=== PATIENT | male | born 1950 ===

== ENCOUNTER 2017-02-16 07:13 | Day surgery (SDC) | payer MEDICARE, OTHER ==
[2017-02-16 07:46] VITALS: BMI 25.7
[2017-02-16] MEDS ORDERED: Propofol 10 mg/ml Inj (20 ML) ONE (08:33)
[2017-02-16] MEDS ORDERED: Lactated Ringer's 500 ML IV ONE (08:58)
[2017-02-16] MEDS ORDERED: Phenylephrine 10 mg/ml Inj ONE (09:00)
[2017-02-16 09:15] VITALS: BP 156/62; PULSE 53; RESP 15; TEMP 98.4; O2SAT 100
== END 2017-02-16 11:00 | disposition home or self-care (01) ==
LOC: C.ENDO 07:13
PROVIDERS: ATTEND Internal Medicine Gastroenterology
DX: K92.1 Melena (principal); K57.30 Diverticulosis of large intestine without perforation or abscess without bleeding; K62.1 Rectal polyp; K64.1 Second degree hemorrhoids
CPT/HCPCS: 45380; 82948; 88305; J2370; J2704; J7120

== ENCOUNTER 2017-03-20 07:00 | Day surgery (SDC) | payer MEDICARE, OTHER ==
[2017-03-20] MEDS ORDERED: Iodixanol 320 MG/ML 100 ML BOTTLE IV ONE (07:50)
[2017-03-20] MEDS ORDERED: Sodium Chloride 0.9% 500 ML IV SCH (09:13)
[2017-03-20] MEDS ORDERED: Lactated Ringer's 1,000 ML IV ONE (12:06)
[2017-03-20 13:35] VITALS: O2SAT 95
[2017-03-20 14:08] VITALS: BP 165/65; PULSE 61; RESP 17; TEMP 97.7
--- NOTE | 2017-05-08 09:17 | CARDCATH ---
PROCEDURE DATE: 03/20/2017 PROCEDURES PERFORMED: 1. Cardiac catheterization. 2. Coronary angiography. 3. Left ventriculography. COMPLICATIONS: None. DESCRIPTION OF PROCEDURE: After obtaining informed consent, the patient was brought to cardiac catheterization laboratory. The patient was prepped and draped in usual sterile manner. Versed and fentanyl were used for moderate sedation. A 2% lidocaine was used for local anesthesia. Using a modified Seldinger technique, the right radial artery was catheterized and a 6-Prydeinig Terumo Slender sheath was inserted into it. The sheath was flushed with heparinized saline. Verapamil 2.5 mg was buffered with blood and slowly administered into the sheath to reduce vasospasm. Over the guidewire, a 6-Prydeinig [place] catheter was advanced through the sheath across the arm and into the ascending aorta. The guidewire was removed and the catheter was flushed with heparinized saline. Heparin 5000 units was administered through peripheral IV. The catheter then was advanced across the aortic valve into the left ventricle. Left ventricular pressure tracing was recorded with left ventricular end-diastolic pressure measured. The catheter then was withdrawn across the aortic valve under continuous pressure monitoring. The catheter then was directed towards the ostium of the left coronary system. Selective angiography of this vessel was performed in multiple views. The catheter then was directed towards the ostium of the right coronary system. Selective angiography of this vessel was performed in multiple views. J-tip guidewire was reinserted into the catheter and the catheter was successfully withdrawn through the right radial sheath. Radial sheath was flushed with heparinized saline. Using a RigUp TR band, pressure was applied over the right radial artery with air inflated into the balloon. The catheter was successful withdrawn from the right radial artery with continuous pulse oximetry monitoring and excellent hemostasis over the right radial artery. FINDINGS: 1. The left main artery. Left main artery is a normal-sized vessel gives rise to both the left anterior descending and left circumflex arteries, and is free of disease, 0% stenosis. 2. Left anterior descending artery. The left anterior descending artery is a large vessel traveling across the anterior interventricular groove and giving rise to several diagonal and septal branches. The left anterior descending artery has a 90% stenosis in the mid portion of the vessel. 3. Left circumflex artery. Left circumflex artery is a large-sized vessel giving rise to a several obtuse marginal branches. Vessel has luminal irregularities, 20% diffuse stenosis. 4. Right coronary artery. The right coronary artery has a 90% stenosis in the proximal portion of the vessel. The vessel is a large-sized vessel giving rise to both the RPDA and RPLA arteries. LEFT VENTRICULOGRAPHY FINDINGS: The overall left ventricular function is normal, ejection fraction estimated at 55%. HEMODYNAMIC DATA: The aortic opening pressure was 119/78. The left ventricular end-diastolic pressure was 14. There was no significant gradient across the aortic valve. CONCLUSION: 1. Double-vessel coronary artery disease. 2. Normal LV systolic function. PLAN: PCI of the RCA in a tertiary facility with an elective PCI capabilities. Antonio Pace MD
== END 2017-03-20 14:13 | disposition home or self-care (01) ==
LOC: C.CATHLAB 07:00
PROVIDERS: ATTEND Internal Medicine Cardiovascular Disease
DX: I25.119 Atherosclerotic heart disease of native coronary artery with unspecified angina pectoris (principal)
CPT/HCPCS: 82948; 93458; C1769; J0360; J1644; J7040; Q9967

== ENCOUNTER 2017-06-17 13:34 | Observation (INO) | payer MEDICARE, OTHER ==
[2017-06-17 13:34] VITALS: BMI 21.1
--- NOTE | 2017-06-17 14:09 | C.PDOC ---
History Of Present Illness Haseeb Christian is a 67 year old male, with a past medical history of diabetes, hypercholesterolemia and CAD, who presents to the emergency department via BLS complaining of epigastric pain associated with nausea, diaphoresis, vomit, and near syncope onset for 1 hour. Patient reports feeling hot, pale, sweating, and had difficulty breathing before the near syncope episode. He states he no longer feel nauseous and denies any fever, or head injury. PMD: Gwendolyn Cobb Time Seen by Provider: 06/17/17 13:46 Chief Complaint (Nursing): Weakness/Neurological Deficit History Per: Patient History/Exam Limitations: no limitations Onset/Duration Of Symptoms: Hrs (x1) Current Symptoms Are (Timing): Better Past Medical History Reviewed: Historical Data, Nursing Documentation, Vital Signs Vital Signs: Last Vital Signs Temp 97.7 F 06/17/17 13:44 Pulse 65 06/17/17 15:57 Resp 15 06/17/17 15:57 BP 143/72 06/17/17 15:57 Pulse Ox 98 06/17/17 15:57 - Medical History PMH: Anemia (IRON DEFICIENCY), CAD, Colonic Polyps, Diabetes, Gall Bladder Disease, HTN, Hypercholesterolemia Denies: Fractures, Chronic Kidney Disease Surgical History: Carotid Endarterectomy (1 year ago), Cholecystectomy (about 15 years ago), Coronary Stent (cardiac cath (2017)), Hernia Repair Family History: States: Unknown Family Hx - Social History Hx Tobacco Use: No Hx Alcohol Use: No Hx Substance Use: No - Immunization History Hx Tetanus Toxoid Vaccination: No Hx Influenza Vaccination: Yes (2017) Hx Pneumococcal Vaccination: Yes Review Of Systems Except As Marked, All Systems Reviewed And Found Negative. Constitutional: Negative for: Fever Gastrointestinal: Positive for: Nausea, Abdominal Pain (epigastric pain) Physical Exam - Physical Exam Additional Physical Exam Comments: Constitutional: No acute distress. Head: Normocephalic. Atraumatic. Eyes: PERRL. ENT: Moist mucous membranes. Neck: Supple. Cardiovascular: Regular rate. Radial pulse 2+ bilaterally. Chest: No tenderness. Respiratory: Clear to auscultation bilaterally. GI: Epigastric tenderness, No rebound, No guarding Back: No CVA tenderness. Musculoskeletal: No tenderness or swelling of extremities. Skin: No rash. Neurologic: Alert, no focal deficit. ED Course And Treatment - Laboratory Results Result Diagrams: 06/17/17 14:20 06/17/17 14:20 ECG Rhythm: Sinus Rhythm (NORMAL), ST/T Changes (No ST elevation) Rate From EC O2 Sat by Pulse Oximetry: 100 (RA) Pulse Ox Interpretation: Normal Medical Decision Making Medical Decision Making: Initial Plan: --CK-MB --Comp Metabolic Panel --Creatine Phosphokinase --Lipase --Troponin I --CBC w/ differential --PTT --PT --Chest portable [RAD] --Aspirin 325 mg PO --Urine culture --Urinalysis --reevaluation 1450 Chest x-ray single frontal view History: Epigastric pain. Syncope. Comparison: 05/28/2014 Findings: Moderate venous congestion. Right infrahilar prominence. Patchy bibasilar airspace opacities. Cardiomegaly. Calcification at the aortic knob. Degenerative changes in the spine and shoulders. Impression: Moderate venous congestion. Right infrahilar prominence. Patchy bibasilar airspace opacities. Cardiomegaly. Calcification at the aortic knob. Degenerative changes in the spine and shoulders. Troponin negative. Aspirin administered. Dr. 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 Scribe Attestation Written by Salvador Roblero acting as a scribe for Kendall Espitia MD All medical record entries made by the Scribe were at my direction and personally dictated by me. I have reviewed the chart and agree that the record accurately reflects my personal performance of the history, physical exam, medical decision making, and the department course for this patient. I have also personally directed, reviewed, and agree with the discharge instructions and disposition. Disposition Discussed With : Seng Juarez Doctor Will See Patient In The: Hospital - Disposition Disposition: HOSPITALIZED Disposition Time: 15:14 Condition: FAIR Forms: [facility] (German) - POA Core Measure Indicators: Chest Pain - Clinical Impression Clinical Impression: Epigastric pain
[2017-06-17 14:24] LABS: BASO # 0.2 K/uL (0.0-0.2); BASO % 1.3 % (0.0-2.0); EOS # 0.5 K/uL (0.0-0.7); EOS % 4.2 % (0.0-4.0); HEMATOCRIT 33.6 % (35.0-51.0); LYMPH % 16.6 % (20.0-40.0); MEAN CELL VOLUME 81.3 fL (80.0-94.0); MEAN CORPUSCULAR HGB CONC 33.3 g/dL (33.0-37.0); MEAN PLATELET VOLUME 9.8 fL (7.2-11.7); MONO # 0.7 K/uL (0.0-0.8); MONO % 6.1 % (0.0-10.0); NRBC % 0.1 % (0.0-2.0); RED CELL DISTRIBUTION WIDTH 14.7 % (11.5-14.5)
[2017-06-17 14:32] LABS: CHLORIDE 107 mmol/L (98-107); POTASSIUM 4.7 mmol/L (3.6-5.2); SODIUM 138 mmol/L (132-148)
[2017-06-17 14:34] LABS: ALB/GLOB RATIO 1.1 (1.0-2.1); ALKALINE PHOSPHATASE 119 U/L (38-126); AST/SGOT 35 U/L (17-59); BILIRUBIN,TOTAL 0.6 mg/dL (0.2-1.3); CARBON DIOXIDE 21 mmol/L (22-30); GFR AFRICAN-AMERICAN 38; TOTAL PROTEIN 6.7 g/dL (6.3-8.3)
[2017-06-17 14:35] LABS: ALT/SGPT 25 U/L (21-72); BLOOD UREA NITROGEN 28 mg/dL (9-20); CALCIUM 8.6 mg/dl (8.6-10.4); GLUCOSE,RANDOM 79 mg/dL (75-110)
--- NOTE | 2017-06-17 14:52 | RAD ---
Chest x-ray single frontal view History: Epigastric pain. Syncope. Comparison: 05/28/2014 Findings: Moderate venous congestion. Right infrahilar prominence. Patchy bibasilar airspace opacities. Cardiomegaly. Calcification at the aortic knob. Degenerative changes in the spine and shoulders. Impression: Moderate venous congestion. Right infrahilar prominence. Patchy bibasilar airspace opacities. Cardiomegaly. Calcification at the aortic knob. Degenerative changes in the spine and shoulders.
[2017-06-17 17:12] LABS: RBC URINE 2 /hpf (0-3); URINE BACTERIA RARE (<OCC); URINE BILIRUBIN NEGATIVE (NEGATIVE); URINE COLOR Yellow (YELLOW); URINE GLUCOSE (UA) 1+ mg/dL (Normal); URINE HYALINE CAST 0-2 /lpf (0-2); URINE KETONE NEGATIVE (NEGATIVE); URINE LEUKOCYTE ESTERASE NEG Leu/uL (Negative); URINE PROTEIN 3+ mg/dL (NEGATIVE); URINE UROBILINOGEN NORMAL mg/dL (0.2-1.0); WBC URINE 1 /hpf (0-5)
[2017-06-17 17:13] LABS: URINE BLOOD TRACE (NEGATIVE)
[2017-06-17] MEDS ORDERED: Enoxaparin 30 mg Syringe SC SCH (22:45)
[2017-06-18] MEDS: Nitroglycerin 2% Ointment Foilpak UD TOP SCH ×4 (00:05→18:35)
[2017-06-18] MEDS: (Novolin R) Insulin Human Regular 100 units/ml vial SC SCH ×4 (08:01→21:51)
[2017-06-18] MEDS: Enoxaparin 30 mg Syringe SC SCH (09:22)
--- NOTE | 2017-06-18 14:47 | CP.PCM.HP ---
History of Present Illness - History of Present Illness History of Present Illness: COMPREHENSIVE HISTORY & PHYSICAL EXAM HPI PT WAS RESTING AND EXPERIENCED SEVERE DIAPHORESIS WITH EPIGASTRIC PAIN RADIATING TO RETROSTERNAL FOR FEW MIN . PT HAD SIMILAR EPISODE 2 MONTHS AGO AND FOUND 2 V CAD AND STENTED RCA PROXIMAL AND LAD MID . PAST HIST. T2DM WITH MILD NEPHROPATHY/CAD/STENT/HTN/HIATAL HERNIA /PUD PERSONAL HIST: Smoking. N Alcohol. N Allergy N Travel_- . FAMILY HIST : ROS : Constitutional: Negative for weight change, chills, night sweats, Eyes: Negative for redness, swelling, itching, discharge, vision changes, blurry vision, double vision, glaucoma, cataracts, Ears: Negative for hearing loss, ringing, , tinnitus, vertigo Nose: Negative for rhinorrhea, stuffiness, sniffing, itching, postnasal drip, discoloration, nasal congestion and epistaxis. Throat: Negative for throat clearing, sore throat, hoarseness, difficulty swallowing and difficulty speaking. Respiratory: Negative for cough, , sputum production, chest tightness, wheezing, pleuritic chest pain ,daytime somnolence, chronic cough, hemoptysis, snoring at night, Cardiovascular: POS for chest pain, palpitations, NO orthopnea, PND, Edema of legs, leg cramps, angina, claudication, , irregular heartbeat, Neurology: Negative for irritability, muscle weakness, numbness and tingling, seizures, tremors, migraines, slurred speech, syncope, memory loss, mood changes , recurrent headaches Gastrointestinal: Negative for difficulty swallowing, diarrhea, constipation, black stools, rectal bleeding, nausea, flatulence, poor appetite, changes in bowel habits, abdominal pain Genitourinary: Negative for frequent urination, hematuria, discharge, incontinence, urinary retention, frequent UTI, Psychiatric: Negative for depression, anxiety/panic, suicidal tendencies, Musculoskeletal: Negative for swollen joints, back pain, , neck pain, morning stiffness of joints, . Skin: Negative for rash, ulcers, itching, dry skin and pigmented lesions. P/E: Constitutional: Appears stated age and in no apparent distress. Head: Normocephalic. Ears: External ear canals patent without inflammation. Tympanic membranes intact with normal light reflex and landmark. Eyes: Pupils are central, bilaterally equal, symmetrical and reacts to light with normal movements and no icterus or pallor. Nose: External nares are patent. Mucosa is pink Mouth-Throat: Good general appearance and condition. No post-pharyngeal/oropharyngeal erythema and tonsillar hypertrophy. Good dental hygiene. Neck-Lymphatic: Neck is supple with normal ROM, no thyromegaly, lymph nodes or masses. JVD is normal with no carotid bruit. Lungs: Clear to percussion and auscultation with bilateral normal air entry. Cardiovascular: S1 and S2 are normal with MATT murmurs BASE OF HEART NO , gallops and rub. GI Exam: No hepatomegaly. Abdomen is soft and non-tender. No Organomegaly , masses or hernias are evident and bowel sounds are normal and active. Neurology: Higher function and all cranial nerves intact, with no gross motor or sensory deficit. Superficial and deep reflexes are normal with downwards planters. No cerebellar deficit with normal gait. Musculoskeletal: No tender spots with normal curvature of the spine with no swelling or restricted ROM of the small and large joints. Extremities: Homans sign absent. Intact pulses with no pitting edema, calf tenderness or skin color changes. Skin: No rash, eruptions or abnormal skin pigmentation LAB/RADIOLOGY: ASSESMENT : WITH H/O RECENT CAD STENT THE SYMPTOMS SUGGEST ACUTE CORONARY SYNDROME TE DM WITH NEPHROSCLEROSIS HTN PLAN: MONITOR TNI AND REVIIEW OLD CHART MAY NEED REPEAT CATH IF CR IS STABLE Present on Admission - Present on Admission Any Indicators Present on Admission: No Past Patient History - Past Medical History & Family History Past Medical History?: Yes - Past Social History Smoking Status: Former Smoker - CARDIAC Hx Hypercholesterolemia: Yes Hx Hypertension: Yes - PULMONARY Hx Respiratory Disorders: No - NEUROLOGICAL Hx Neurological Disorder: Yes HX Cerebrovascular Accident: Yes (ABOUT 2013-LEFT SIDED WEAKNESS REMAINS) - HEENT Hx HEENT Problems: Yes Hx Cataracts: Yes (LEFT EYE) - RENAL Hx Chronic Kidney Disease: No - ENDOCRINE/METABOLIC Hx Endocrine Disorders: Yes Hx Diabetes Mellitus Type 2: Yes - HEMATOLOGICAL/ONCOLOGICAL Hx Anemia: Yes (IRON DEFICIENCY) - INTEGUMENTARY Hx Dermatological Problems: No - MUSCULOSKELETAL/RHEUMATOLOGICAL Hx Falls: No - GASTROINTESTINAL Hx Gall Bladder Disease: Yes - GENITOURINARY/GYNECOLOGICAL Hx Genitourinary Disorders: No - PSYCHIATRIC Hx Substance Use: No - SURGICAL HISTORY Hx Carotid Endarterectomy: Yes (1 year ago) Hx Cholecystectomy: Yes (about 15 years ago) Hx Coronary Stent: Yes (cardiac cath (2017)) - ANESTHESIA Hx Anesthesia: Yes Hx Anesthesia Reactions: No Hx Malignant Hyperthermia: No Meds Allergies/Adverse Reactions: Allergies Allergy/AdvReac Type Severity Reaction Status Date / Time No Known Allergies Allergy Verified 04/12/17 09:52 Results - Vital Signs Recent Vital Signs: Last Vital Signs Temp 97.8 F 06/18/17 07:05 Pulse 60 06/18/17 12:10 Resp 18 06/18/17 07:05 BP 149/74 06/18/17 12:10 Pulse Ox 97 06/18/17 07:05 - Labs Result Diagrams: 06/17/17 14:20 06/17/17 14:20 Labs: Laboratory Results - last 24 hr 06/17/17 06/17/17 06/17/17 14:20 14:20 14:59 Differential Comment PT 11.0 INR 1.0 APTT 29 Carbon Dioxide 21 L Anion Gap 15 BUN 28 H Creatinine 2.1 H Est GFR ( Amer) 38 Est GFR (Non-Af Amer) 32 POC Glucose (mg/dL) Random Glucose 79 Calcium 8.6 Total Bilirubin 0.6 AST 35 ALT 25 Alkaline Phosphatase 119 Total Creatine Kinase 577 H CK-MB (Mass) 3.44 H Troponin I < 0.0120 Troponin I, Quant Total Protein 6.7 Globulin 3.2 Albumin/Globulin Ratio 1.1 Lipase 201 Urine Color Urine Clarity Urine pH Ur Specific [place] Urine Protein Urine Glucose (UA) Urine Ketones Urine Blood Urine Nitrate Urine Bilirubin Urine Urobilinogen Ur Leukocyte Esterase Urine WBC (Auto) Urine RBC (Auto) Ur Squamous Epith Cells Urine Bacteria Hyaline Casts 06/17/17 06/17/17 06/17/17 16:42 21:25 23:49 Differential Comment PT INR APTT Carbon Dioxide Anion Gap BUN Creatinine Est GFR ( Amer) Est GFR (Non-Af Amer) POC Glucose (mg/dL) 251 H Random Glucose Calcium Total Bilirubin AST ALT Alkaline Phosphatase Total Creatine Kinase 587 H CK-MB (Mass) 3.41 H Troponin I Troponin I, Quant < 0.0120 Total Protein Globulin Albumin/Globulin Ratio Lipase Urine Color Yellow Urine Clarity Clear Urine pH 5.0 Ur Specific [place] 1.011 Urine Protein 3+ H Urine Glucose (UA) 1+ H Urine Ketones Negative Urine Blood Trace H Urine Nitrate Negative Urine Bilirubin Negative Urine Urobilinogen Normal Ur Leukocyte Esterase Neg Urine WBC (Auto) 1 Urine RBC (Auto) 2 Ur Squamous Epith Cells < 1 Urine Bacteria Rare Hyaline Casts 0-2 06/18/17 06/18/17 06/18/17 06:49 08:09 11:48 Differential Comment PT INR APTT Carbon Dioxide Anion Gap BUN Creatinine Est GFR ( Amer) Est GFR (Non-Af Amer) POC Glucose (mg/dL) 138 H 237 H Random Glucose Calcium Total Bilirubin AST ALT Alkaline Phosphatase Total Creatine Kinase 588 H CK-MB (Mass) 3.49 H Troponin I Troponin I, Quant < 0.0120 Total Protein Globulin Albumin/Globulin Ratio Lipase Urine Color Urine Clarity Urine pH Ur Specific [place] Urine Protein Urine Glucose (UA) Urine Ketones Urine Blood Urine Nitrate Urine Bilirubin Urine Urobilinogen Ur Leukocyte Esterase Urine WBC (Auto) Urine RBC (Auto) Ur Squamous Epith Cells Urine Bacteria Hyaline Casts
[2017-06-19] MEDS: Nitroglycerin 2% Ointment Foilpak UD TOP SCH ×4 (00:14→17:26)
[2017-06-19 08:07] LABS: POTASSIUM 4.9 mmol/L (3.6-5.2)
[2017-06-19 08:09] LABS: BILIRUBIN,TOTAL 0.2 mg/dL (0.2-1.3); TOTAL PROTEIN 6.2 g/dL (6.3-8.3)
[2017-06-19 08:10] LABS: CALCIUM 8.5 mg/dl (8.6-10.4)
[2017-06-19] MEDS: (Novolin R) Insulin Human Regular 100 units/ml vial SC SCH ×3 (08:16→17:26)
[2017-06-19] MEDS: Enoxaparin 30 mg Syringe SC SCH (09:39)
--- NOTE | 2017-06-19 13:26 | CP.PCM.PN ---
Subjective - Date & Time of Evaluation Date of Evaluation: 06/19/17 Time of Evaluation: 13:24 - Subjective Subjective: CHIEF COMPLAINTS TODAY : NO FURTHER CP ROS. HEENT : N. Resp : No cough, wheezing ,pleuritic CP ,or hemoptysis Cardio : No anginal CP, PND, orthopnea, palpitation GI : No abd.pain, n/v ,diarrhea or GI bleeding . IT SUPPORT ANALYST : No headache, vertigo, focal deficit. Musculoskel : No joint swelling , Derm : No rash Psych : Normal affect. Ext : No swelling ,calf pain PE. Pt. is alert awake in no distress. V.S As noted in the chart Head ,ear nose,throat and eyes : Normal. Neck : Supple with normal carotids. Lungs: Clear air entry. Heart : S1 & S2 normal with S4. No murmur. Abd : Soft non tender with normal bowel sounds. Neuro : Moves all ext. with no localized deficit. Ext : No edema with intact pulses.Non tender calves Derm : No rashes or decubitus ulcer. LABS/RADIOLOGY: TNI ARE NEG CR 2.4 ASSESSMENT/PLAN : CHECK CR ECHO Objective - Vital Signs/Intake and Output Vital Signs (last 24 hours): Temp Pulse Resp BP Pulse Ox 97.2 F L 62 20 143/80 98 06/19/17 08:57 06/19/17 11:53 06/19/17 08:57 06/19/17 11:38 06/19/17 08:57 - Medications Medications: Current Medications Amlodipine Besylate (Norvasc) 10 mg PO DAILY [facility] Last Admin: 06/19/17 09:40 Dose: 10 mg Aspirin (Ecotrin) 81 mg PO DAILY [facility] Last Admin: 06/19/17 09:40 Dose: 81 mg Carvedilol (Coreg) 12.5 mg PO Q12 [facility] Last Admin: 06/19/17 09:40 Dose: 12.5 mg Enoxaparin Sodium (Lovenox) 30 mg SC DAILY [facility] Last Admin: 06/19/17 09:39 Dose: 30 mg Famotidine (Pepcid) 20 mg PO DAILY [facility] Last Admin: 06/19/17 09:40 Dose: 20 mg Ferrous Sulfate (Feosol) 325 mg PO DAILY [facility] Last Admin: 06/19/17 09:40 Dose: 325 mg Glimepiride (Amaryl) 2 mg PO DAILY [facility] Last Admin: 06/19/17 09:40 Dose: 2 mg Insulin Human Regular (Novolin R) 0 unit SC ACHS [facility] PRN Reason: Protocol Last Admin: 06/19/17 11:28 Dose: Not Given Lisinopril (Zestril) 20 mg PO DAILY [facility] Last Admin: 06/19/17 09:40 Dose: 20 mg Nitroglycerin (Nitro-Bid 2% Oint) 1 ea TOP Q6 [facility] Last Admin: 06/19/17 11:40 Dose: 1 ea Rosuvastatin Calcium (Crestor) 20 mg PO HS [facility] Last Admin: 06/18/17 22:07 Dose: 20 mg Sitagliptin Phosphate (Januvia) 25 mg PO DAILY [facility] Last Admin: 06/19/17 09:40 Dose: 25 mg Ticagrelor (Brilinta) 90 mg PO BID [facility] Last Admin: 06/19/17 09:40 Dose: 90 mg - Labs Labs: 06/17/17 14:20 06/19/17 07:31 PT 11.0 SECONDS (9.7-12.2) 06/17/17 14:59 INR 1.0 06/17/17 14:59 APTT 29 SECONDS (21-34) 06/17/17 14:59
--- NOTE | 2017-06-19 21:57 | CARD ---
APPROVED REPORT EKG Measurement Heart [id number] <Conclusion> Sinus bradycardia Minimal voltage criteria for LVH, may be normal variant Borderline ECG
[2017-06-20] MEDS: Nitroglycerin 2% Ointment Foilpak UD TOP SCH ×3 (00:43→11:22)
[2017-06-20 07:51] LABS: POTASSIUM 4.6 mmol/L (3.6-5.2)
[2017-06-20 07:53] LABS: BILIRUBIN,TOTAL 0.2 mg/dL (0.2-1.3); TOTAL PROTEIN 5.7 g/dL (6.3-8.3)
[2017-06-20 07:54] LABS: CALCIUM 8.2 mg/dl (8.6-10.4)
[2017-06-20 08:10] VITALS: PULSE 63
[2017-06-20] MEDS: (Novolin R) Insulin Human Regular 100 units/ml vial SC SCH ×2 (08:30→12:38)
[2017-06-20] MEDS: Enoxaparin 30 mg Syringe SC SCH (11:22)
[2017-06-20 15:25] VITALS: BP 169/74; RESP 18; TEMP 98; O2SAT 100
== END 2017-06-20 16:00 | disposition home or self-care (01) ==
LOC: C.ER 13:34 → C.9E 16:23 → C.6T 17:11
PROVIDERS: ADMIT Internal Medicine Cardiovascular Disease; ATTEND Internal Medicine Cardiovascular Disease
DX: R10.13 Epigastric pain (principal); I11.9 Hypertensive heart disease without heart failure; I25.10 Atherosclerotic heart disease of native coronary artery without angina pectoris; I51.7 Cardiomegaly; Z86.010 Personal history of colon polyps; Z87.891 Personal history of nicotine dependence; K44.9 Diaphragmatic hernia without obstruction or gangrene; E11.9 Type 2 diabetes mellitus without complications
CPT/HCPCS: 36415; 71010; 80053; 81001; 82550; 82553; 82948; 83690; 84484; 85025; 85610; 85730; 87086; 93005; 99285; G0378; J1650

== ENCOUNTER 2017-11-07 09:05 | Emergency (ER) | payer MEDICARE, OTHER ==
[2017-11-07 09:06] VITALS: BMI 21.1
[2017-11-07 09:38] VITALS: O2SAT 98
[2017-11-07] MEDS ORDERED: Sodium Chloride 0.9% 1,000 ML IV ONE (09:52)
--- NOTE | 2017-11-07 10:02 | C.PDOC ---
History Of Present Illness 67 y/o male presents to ED with complaints of constant right sided flank and abdominal pain for 2 weeks. Patient has taken Tylenol with mild improvement and reports last bowel movement 2 days ago. Patient denies nausea, vomiting, diarrhea, dysuria, hematuria or any other complaints at this time. Time Seen by Provider: 11/07/17 09:40 Chief Complaint (Nursing): Back Pain History Per: Patient History/Exam Limitations: no limitations Onset/Duration Of Symptoms: Days Current Symptoms Are (Timing): Still Present Quality Of Discomfort: "Pain" Past Medical History Reviewed: Historical Data, Nursing Documentation, Vital Signs Vital Signs: Last Vital Signs Temp 99 F 11/07/17 09:36 Pulse 75 11/07/17 09:36 Resp 18 11/07/17 09:36 BP 156/77 H 11/07/17 09:36 Pulse Ox 98 11/07/17 13:58 - Medical History PMH: Anemia (IRON DEFICIENCY), CAD, Colonic Polyps, Diabetes, Gall Bladder Disease, HTN, Hypercholesterolemia Surgical History: Carotid Endarterectomy (1 year ago), Cholecystectomy (about 15 years ago), Coronary Stent (cardiac cath (2017)), Hernia Repair Family History: States: No Known Family Hx - Social History Hx Tobacco Use: No Hx Alcohol Use: No Hx Substance Use: No - Immunization History Hx Tetanus Toxoid Vaccination: No Hx Influenza Vaccination: Yes (2017) Hx Pneumococcal Vaccination: Yes Review Of Systems Constitutional: Negative for: Fever, Chills Gastrointestinal: Positive for: Abdominal Pain, Constipation. Negative for: Nausea, Vomiting Genitourinary: Negative for: Dysuria, Hematuria Musculoskeletal: Positive for: Back Pain Skin: Negative for: Rash Physical Exam - Physical Exam Appears: Non-toxic, No Acute Distress Skin: Warm, Dry, No Rash Head: Atraumatic, Normacephalic Eye(s): bilateral: Normal Inspection Oral Mucosa: Moist Neck: Normal ROM, Supple Cardiovascular: Rhythm Regular, No Murmur Respiratory: Normal Breath Sounds, No Rales, No Rhonchi, No Wheezing Gastrointestinal/Abdominal: Soft, Tenderness (Mild RUQ ), No Guarding, No Rebound Back: No CVA Tenderness Extremity: Bilateral: Atraumatic Neurological/Psych: Oriented x3 ED Course And Treatment - Laboratory Results Result Diagrams: 11/07/17 10:38 11/07/17 10:38 O2 Sat by Pulse Oximetry: 98 (RA) Pulse Ox Interpretation: Normal - CT Scan/US CT abd/pelvis Other Rad Studies (CT/US): Read By Radiologist, Radiology Report Reviewed CT/US Interpretation: PROCEDURE: CT scan of the abdomen and pelvis dated 2017. HISTORY: Right upper quadrant and flank pain. COMPARISON: No prior study available comparison. TECHNIQUE: Contiguous axial images of the abdomen and pelvis. Oral contrast was administered. No IV contrast given. Coronal and Sagittal reformats generated. Radiation dose: Total exam DLP =. This CT exam was performed using one or more of the following dose reduction techniques: Automated exposure control, adjustment of the mA and/or kV according to patient size, and/or use of iterative reconstruction technique. FINDINGS: LOWER THORAX : Mild bibasilar passive/dependent type atelectasis. There is a tiny hiatal hernia. Lung bowling are otherwise clear. No infiltrate effusion basilar pneumothorax. Heart size is mildly enlarged. No significant pericardial effusion. Small hiatal hernia. LIVER: The liver exhibits normal size measuring nearly 15 cm in CC dimension. No obvious hepatic mass or collection. There is a punctate calcifications seen region of the right lobe liver. GALLBLADDER AND BILE DUCTS: Not present gallbladder is not visualized however no metallic clips are identified within the gallbladder fossa. Clinical correlation with surgical history recommended. PANCREAS: The pancreas appears grossly unremarkable without masses or collections. No significant pancreatic ductal dilatation so far as can be seen. SPLEEN: Spleen exhibits normal size. No evidence of splenic mass collection or calcification. ADRENALS: There are no adrenal lesions seen. KIDNEYS AND URETERS: Kidneys demonstrate symmetric size. No evidence of nephrolithiasis or hydronephrosis. . There are infiltration changes seen in the perinephric fat bilaterally nonspecific. Correlation with urinalysis to exclude UTI. BLADDER: Urinary bladder is incompletely distended which in part accounts for thick-walled appearance. Muscular hypertrophy presumably contributes. Cystitis in a male patient would be less likely though clinical correlation with urinalysis recommended. REPRODUCTIVE: Prostate gland measures approximately 4.2 cm in transverse dimension. APPENDIX: Normal-appearing retrocecal appendix best seen on axial image number [id number]. No periappendiceal inflammatory changes. BOWEL: Evaluation of the bowel is limited due to the lack of oral contrast material. The stomach is distended with food debris liquid and air. Visualized loops of small bowel exhibit relatively normal contour and caliber. No evidence of acute mechanical small bowel obstruction. Large amount of stool seen within the colon particularly the cecum at ascending and proximal transverse colon consistent with fecal retention/constipation. No definitive mural wall thickening. PERITONEUM: Unremarkable. No fluid collection. No free air. . Small fat containing bilateral inguinal hernias are present. There is a small fat containing umbilical hernia. LYMPH NODES: Unremarkable. No enlarged lymph nodes. VASCULATURE: Partially calcified atherosclerotic plaque seen along the abdominal aorta and iliac arteries. No aortic aneurysm. BONES: Multilevel degenerative spondylosis of the lower thoracic and lumbar spine. Sclerosis both SI joints. . OTHER FINDINGS: None. IMPRESSION: Mild infiltration changes within the perinephric fat thickening of the urinary bladder nonspecific. Rule out UTI. . No evidence of nephrolithiasis. The gallbladder is not visualized on this exam however no metallic clips are identified within the gallbladder fossa. Correlation with surgical history recommended. Findings consistent with constipation. No evidence of acute appendicitis. Medical Decision Making Medical Decision Making: Impression: right side abdominal and flank pain Plan: Blood work, UA, CT abdomen/pelvis ordered Progress: Labs reviewed, renal insufficiency 11 CT shows no nephrolithiasis. Need to correlate urine. Patient has yet to provide urine specimen 1330 UA still pending 1428 UA shows glucose, no ketones. No UTI 1432 Patient reevaluated and is resting on stretcher in no distress. He reports pain has improved. Discussed results with patient, and copy of CT and lab report was provided. I recommend fluids, rest and analgesics. Advise to follow up with PCP and monitor sugar. Patient feels comfortable going home and will be discharged. Patient given follow up instructions. Instructed to return to ER if symptoms worsen or new symptoms arise. Disposition Counseled Patient/Family Regarding: Diagnosis, Need For Followup, Rx Given - Disposition Referrals: Gwendolyn Cobb MD [Medical Doctor] - Disposition: HOME/ ROUTINE Disposition Time: 14:31 Condition: STABLE Additional Instructions: Es importante que realice un seguimiento con un mdico primario para eleazar evaluacin adicional [place] medicamento para el dolor segn sea necesario Regrese al departamento de emergencia en cualquier momento si los sntomas persisten o empeoran. 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 - Scribe Statement The provider has reviewed the documentation as recorded by the Rosa Valle All medical record entries made by the Rosa were at my direction and personally dictated by me. I have reviewed the chart and agree that the record accurately reflects my personal performance of the history, physical exam, medical decision making, and the department course for this patient. I have also personally directed, reviewed, and agree with the discharge instructions and disposition.
[2017-11-07] MEDS ORDERED: Sodium Chloride 0.9% 1,000 ML ONE (10:16)
[2017-11-07 10:47] LABS: BASO # 0.1 K/uL (0.0-0.2); EOS # 0.4 K/uL (0.0-0.7); EOS % 4.8 % (0.0-4.0); HEMOGLOBIN 10.3 g/dL (12.0-18.0); LYMPH # 1.5 K/uL (1.0-4.3); LYMPH % 16.9 % (20.0-40.0); MEAN CELL VOLUME 81.5 fL (80.0-94.0); MEAN CORPUSCULAR HEMOGLOBIN 27.5 pg (27.0-31.0); MEAN CORPUSCULAR HGB CONC 33.7 g/dL (33.0-37.0); MEAN PLATELET VOLUME 9.5 fL (7.2-11.7); MONO # 0.9 K/uL (0.0-0.8); MONO % 10.1 % (0.0-10.0); NEUT # 5.9 K/uL (1.8-7.0); NEUT % 67.2 % (50.0-75.0); RBC 3.74 Mil/uL (4.40-5.90); RED CELL DISTRIBUTION WIDTH 14.2 % (11.5-14.5); WHITE BLOOD COUNT 8.7 K/uL (4.8-10.8)
[2017-11-07 11:01] LABS: ALB/GLOB RATIO 1.1 (1.0-2.1); ALBUMIN 3.4 g/dL (3.5-5.0); CALCIUM 8.6 mg/dl (8.6-10.4)
--- NOTE | 2017-11-07 11:14 | CT ---
PROCEDURE: CT scan of the abdomen and pelvis dated 11/07/2017 HISTORY: Right upper quadrant and flank pain. COMPARISON: No prior study available comparison TECHNIQUE: Contiguous axial images of the abdomen and pelvis. Oral contrast was administered. No IV contrast given. Coronal and Sagittal reformats generated. Radiation dose: Total exam DLP = This CT exam was performed using one or more of the following dose reduction techniques: Automated exposure control, adjustment of the mA and/or kV according to patient size, and/or use of iterative reconstruction technique. FINDINGS: LOWER THORAX: Mild bibasilar passive/dependent type atelectasis. There is a tiny hiatal hernia. Lung bowling are otherwise clear. No infiltrate effusion basilar pneumothorax. Heart size is mildly enlarged. No significant pericardial effusion. Small hiatal hernia. LIVER: The liver exhibits normal size measuring nearly 15 cm in CC dimension. No obvious hepatic mass or collection. There is a punctate calcifications seen region of the right lobe liver. GALLBLADDER AND BILE DUCTS: Not present gallbladder is not visualized however no metallic clips are identified within the gallbladder fossa. Clinical correlation with surgical history recommended. PANCREAS: The pancreas appears grossly unremarkable without masses or collections. No significant pancreatic ductal dilatation so far as can be seen. SPLEEN: Spleen exhibits normal size. No evidence of splenic mass collection or calcification. ADRENALS: There are no adrenal lesions seen. KIDNEYS AND URETERS: Kidneys demonstrate symmetric size. No evidence of nephrolithiasis or hydronephrosis. . There are infiltration changes seen in the perinephric fat bilaterally nonspecific. Correlation with urinalysis to exclude UTI. BLADDER: Urinary bladder is incompletely distended which in part accounts for thick-walled appearance. Muscular hypertrophy presumably contributes. Cystitis in a male patient would be less likely though clinical correlation with urinalysis recommended. REPRODUCTIVE: Prostate gland measures approximately 4.2 cm in transverse dimension. APPENDIX: Normal-appearing retrocecal appendix best seen on axial image number [id number]. No periappendiceal inflammatory changes. BOWEL: Evaluation of the bowel is limited due to the lack of oral contrast material. The stomach is distended with food debris liquid and air. Visualized loops of small bowel exhibit relatively normal contour and caliber. No evidence of acute mechanical small bowel obstruction. Large amount of stool seen within the colon particularly the cecum at ascending and proximal transverse colon consistent with fecal retention/constipation. No definitive mural wall thickening. PERITONEUM: Unremarkable. No fluid collection. No free air. . Small fat containing bilateral inguinal hernias are present. There is a small fat containing umbilical hernia. LYMPH NODES: Unremarkable. No enlarged lymph nodes. VASCULATURE: Partially calcified atherosclerotic plaque seen along the abdominal aorta and iliac arteries. No aortic aneurysm. BONES: Multilevel degenerative spondylosis of the lower thoracic and lumbar spine. Sclerosis both SI joints. . OTHER FINDINGS: None. IMPRESSION: Mild infiltration changes within the perinephric fat thickening of the urinary bladder nonspecific. Rule out UTI. . No evidence of nephrolithiasis. The gallbladder is not visualized on this exam however no metallic clips are identified within the gallbladder fossa. Correlation with surgical history recommended. Findings consistent with constipation. No evidence of acute appendicitis.
[2017-11-07 14:19] LABS: SQUAMOUS EPITHIAL < 1 /hpf (0-5); URINE BILIRUBIN NEGATIVE (NEGATIVE); URINE BLOOD NEGATIVE (NEGATIVE); URINE CLARITY Clear (Clear); URINE COLOR Straw (YELLOW); URINE GLUCOSE (UA) 2+ mg/dL (Normal); URINE HYALINE CAST 0-2 /lpf (0-2); URINE LEUKOCYTE ESTERASE NEG Leu/uL (Negative); URINE NITRATE NEGATIVE (NEGATIVE); URINE PROTEIN 2+ mg/dL (NEGATIVE); URINE UROBILINOGEN NORMAL mg/dL (0.2-1.0)
[2017-11-07 15:45] VITALS: BP 151/87; PULSE 72; RESP 19; TEMP 98.9
== END 2017-11-07 15:43 | disposition home or self-care (01) ==
LOC: C.ER 09:05
DX: R10.9 Unspecified abdominal pain (principal); E11.9 Type 2 diabetes mellitus without complications; N28.9 Disorder of kidney and ureter, unspecified
CPT/HCPCS: 74176; 80053; 81001; 83690; 85025; 96360; 99285; J7040

== ENCOUNTER 2018-10-16 11:24 | Inpatient (IN) | payer MEDICARE, OTHER ==
[2018-10-16 11:24] VITALS: BMI 21.1
--- NOTE | 2018-10-16 12:44 | C.PDOC ---
History Of Present Illness 68 y/o male with a PMHx of HTN, DM, and CVA with residual left-sided weakness, brought in by for evaluation of left knee pain s/p fall on 10/12/18. Patient reports he suddenly felt dizzy while attempting to stand, and fell striking the left leg. was assisting him at that time, and slowly lowered to the ground. There was no head trauma or LOC. Patient had also reported some rib pain. He is now complaining of left leg pain, worse at the left knee. reports patient has been unable to straighten the leg knee. also notes prior to the incident, patient developed diarrhea, which he has had for 5 days. Additionally patient is complaining of abdominal pain and nausea, no vomiting. Denies recent antibiotic use. Patient ambulates with wheelchair at baseline since CVA years ago. He continues to complain of intermittent dizziness. Otherwise patient denies chest pain, SOB, visual changes, change in speech, or new focal deficit. Time Seen by Provider: 10/16/18 12:15 Chief Complaint (Nursing): Dizziness/Lightheaded History Per: Patient History/Exam Limitations: no limitations Onset/Duration Of Symptoms: Intermittent Episodes Current Symptoms Are (Timing): Still Present Activity At Onset Of Symptoms: Standing Seizure Or Post-ictal Symptoms: None Fall Associated With With Symptoms: Yes, Positive Injury (L knee) Additional History Per: Family - Symptoms Of CVA Associated Symptoms: denies: Impaired Speech, New Vision Deficit(Left), New Vision Deficit(Right), New Confusion Past Medical History Reviewed: Historical Data, Nursing Documentation, Vital Signs Vital Signs: Last Vital Signs Temp 98.2 F 10/16/18 12:09 Pulse 80 10/16/18 12:09 Resp 16 10/16/18 12:09 BP 140/61 10/16/18 12:09 Pulse Ox 98 10/16/18 12:09 - Medical History PMH: Anemia (IRON DEFICIENCY), CAD, Colonic Polyps, CVA (with L-sided weakness), Diabetes, Gall Bladder Disease, HTN, Hypercholesterolemia Denies: Chronic Kidney Disease Surgical History: Carotid Endarterectomy (Rt side), Cholecystectomy, Coronary Stent, Hernia Repair Family History: States: Unknown Family Hx - Social History Hx Tobacco Use: No Hx Alcohol Use: No Hx Substance Use: No - Immunization History Hx Tetanus Toxoid Vaccination: No Hx Influenza Vaccination: No Hx Pneumococcal Vaccination: Yes Review Of Systems Except As Marked, All Systems Reviewed And Found Negative. Constitutional: Negative for: Fever Eyes: Negative for: Vision Change Cardiovascular: Negative for: Chest Pain, Palpitations Respiratory: Negative for: Shortness of Breath Gastrointestinal: Positive for: Nausea, Abdominal Pain, Diarrhea. Negative for: Vomiting, Hematochezia Genitourinary: Negative for: Rash Musculoskeletal: Positive for: Leg Pain (left leg, mostly to left knee) Neurological: Positive for: Weakness (old residual left-sided weakness), Dizziness (intermittent). Negative for: Numbness, Change in Speech, Seizures, Altered Mental Status, Headache Physical Exam - Physical Exam Appears: Non-toxic, No Acute Distress Skin: Warm, Dry Head: Atraumatic, Normacephalic Eye(s): bilateral: Normal Inspection, PERRL, EOMI Neck: Normal ROM Chest: Symmetrical Gastrointestinal/Abdominal: Soft, Tenderness (diffuse), No Guarding, No Rebound Extremity: Tenderness (diffusely to left knee and lower leg), Calf Tenderness (Left), Capillary Refill (< 2 sec), Other (Left knee held in flexed position, ecchymosis and healing abrasions noted to left knee) Extremity: Left: Other (Left-sided hemiparesis) Pulses: Left Dorsalis Pedis: Normal, Right Dorsalis Pedis: Normal Neurological/Psych: Normal Speech, Other (Awake, Alert, responding appropriately to questions) Gait: Unable To Assess ED Course And Treatment - Laboratory Results Result Diagrams: 10/16/18 13:18 10/16/18 13:18 O2 Sat by Pulse Oximetry: 98 (RA) Pulse Ox Interpretation: Normal - Other Rad ribs/chest x-ray X-Ray: Read By Radiologist Interpretation: Accession No. : [id number]. Patient Name / ID : ROXY RODRIGUEZ / [id number]. Exam Date : 10/16/2018 13:17:57 ( Approved ). Study Comment : Sex / Age : M / 68Y. Creator : marcia rosas. Dictator : Ilya Booth MD. Head Stock Operator : Cook Dessert : Ilya Booth MD. Approver2 : Report Date : 10/16/2018 14:36:24. My Comment : . Date of service: Chest radiograph dated 02/05/2018. 10/16/2018. PROCEDURE: Radiographs of the Chest and Right Ribs. HISTORY: near syncope, fall. COMPARISON: Chest radiograph dated 02/05/2018. TECHNIQUE: Frontal radiograph of the chest and multiple oblique radiographs of the right ribs were obtained. FINDINGS: RIGHT RIBS: No fracture or focal lesion visualized. LUNGS: Clear. PLEURA: Elevation of the left hemidiaphragm. No pneumothorax or pleural fluid. CARDIOVASCULAR: Aortic atherosclerotic calcifications. Cardiomediastinal silhouette stably enlarged. OTHER FINDINGS: None. IMPRESSION: Unremarkable radiographs of the chest and right ribs. No right rib fracture. left knee x-ray X-Ray: Read By Radiologist Interpretation: Accession No. : [id number]. Patient Name / ID : ROXY RODRIGUEZ / [id number]. Exam Date : 10/16/2018 13:24:03 ( Approved ). Study Comment : Sex / Age : M / 68Y. Creator : marcia rosas. Dictator : Ilya Booth MD. Head Stock Operator : Cook Dessert : Ilya Booth MD. Approver2 : Report Date : 10/16/2018 14:36:24. My Comment : . Date of service: 10/16/2018. PROCEDURE: Left Knee Radiographs. HISTORY: Pain. COMPARISON: Bilateral knee radiographs dated 12/24/2014. FINDINGS: BONES: No acute fracture. JOINTS: Unremarkable. JOINT EFFUSION: None. OTHER FINDINGS: Quadriceps tendon enthesophyte. IMPRESSION: Limited evaluation due to contracted left lower extremity. No demonstrated fracture or dislocation. - CT Scan/US CT Head Other Rad Studies (CT/US): Read By Radiologist, Radiology Report Reviewed CT/US Interpretation: Accession No. : [id number]. Patient Name / ID : ROXY RODRIGUEZ / [id number]. Exam Date : 10/16/2018 13:01:42 ( Approved ). Study Comment : Sex / Age : M / 68Y. Creator : Juliana Martins. Dictator : Giovana Joseph MD. Head Stock Operator : Cook Dessert : Giovana Joseph MD. Approver2 : Report Date : 10/16/2018 13:16:07. My Comment : . Date of service: 10/16/2018. PROCEDURE: CT HEAD WITHOUT CONTRAST. HISTORY: dizzy, fell. COMPARISON: Noncontrast head CT performed 02/05/18. TECHNIQUE: Axial computed tomography images were obtained through the head/brain without intravenous contrast. Radiation dose: Total exam DLP = 1069.36 mGy-cm. This CT exam was performed using one or more of the following dose reduction techniques: Automated exposure control, adjustment of the mA and/or kV according to patient size, and/or use of iterative reconstruction technique. FINDINGS: HEMORRHAGE: No intracranial hemorrhage. BRAIN: Diffuse atrophy with prominence of the ventricles and sulci noted. No mass effect or edema. Intracranial atherosclerosis. 5 mm right basal ganglia lacunar infarct. Scattered white matter hypodensities, which are nonspecific, but often seen with chronic microvascular ischemic disease. Please note that MRI with diffusion imaging is more sensitive in the detection of acute ischemic event. VENTRICLES: No hydrocephalus. CALVARIUM: Unremarkable. PARANASAL SINUSES: Unremarkable as visualized. No significant inflammatory changes. MASTOID AIR CELLS: Unremarkable as visualized. No inflammatory changes. OTHER FINDINGS: Calcification re-identified, posterior right globe. Partial opacification of the external auditory canals, likely cerumen. IMPRESSION: Generalized atrophy. Nonspecific white matter changes. 5 mm right basal ganglia lacunar type infarct. Partial opacification of the external auditory canals, likely cerumen. Doppler US Other Rad Studies (CT/US): Radiology Report Reviewed CT/US Interpretation: +partial acute DVT of one left peroneal vein Progress Note: EKG reviewed. Blood work and urine sent to the lab. Patient given 2 mg IV morphine. X-ray taken of ribs/chest and left knee. Awaiting CT Head and Doppler US of the lower extremities. Labs and imaging reviewed. Vascular study shows partial acute DVT. All results discussed with patient and caregiver at bedside. Patient treated with 70mg SC Lovenox. - Physician Consult Information Time Consulting Physician Contacted: 15:40 Physician Contacted: Herbert Lawrence Outcome Of Conversation: Discusse case, patient will be admitted to [facility] for near syncope and DVT Disposition - Disposition Disposition: HOSPITALIZED Disposition Time: 15:58 Condition: FAIR - Clinical Impression Clinical Impression: Near syncope, DVT of leg (deep venous thrombosis) - PA / ASSEMBLER [employer] / Resident Statement MD/DO has reviewed & agrees with the documentation as recorded. - Scribe Statement The provider has reviewed the documentation as recorded by the Rosa Tripp All medical record entries made by the Santyibmary were at my direction and personally dictated by me. I have reviewed the chart and agree that the record accurately reflects my personal performance of the history, physical exam, medical decision making, and the department course for this patient. I have also personally directed, reviewed, and agree with the discharge instructions and disposition. Decision To Admit - Pt Status Changed To: Hospital Disposition Of: Observation - . Bed Request Type: Telemetry Admitting Physician: Herbert Lawrence Patient Diagnosis: Near syncope, DVT of leg (deep venous thrombosis)
[2018-10-16] MEDS ORDERED: Morphine 4 MG/ML VIAL ONE (13:21)
[2018-10-16 13:28] LABS: BASO # 0.1 K/uL (0.0-0.2); EOS # 0.2 K/uL (0.0-0.7); HEMOGLOBIN 9.3 g/dL (12.0-18.0); MONO # 1.1 K/uL (0.0-0.8); NEUT # 8.7 K/uL (1.8-7.0); RED CELL DISTRIBUTION WIDTH 15.2 % (11.5-14.5)
[2018-10-16 13:33] LABS: BASO % 0.6 % (0.0-2.0); LYMPH # 1.5 K/uL (1.0-4.3); LYMPH % 12.5 % (20.0-40.0); MEAN CORPUSCULAR HEMOGLOBIN 25.2 pg (27.0-31.0); MEAN CORPUSCULAR HGB CONC 32.7 g/dL (33.0-37.0); MEAN PLATELET VOLUME 8.4 fL (7.2-11.7); MONO % 9.5 % (0.0-10.0); NEUT % 75.4 % (50.0-75.0); NRBC % 0.1 % (0.0-2.0); RBC 3.7 Mil/uL (4.40-5.90)
[2018-10-16 13:34] LABS: WHITE BLOOD COUNT 11.6 K/uL (4.8-10.8)
[2018-10-16 13:36] LABS: SQUAMOUS EPITHIAL < 1 /hpf (0-5); URINE BILIRUBIN NEGATIVE (NEGATIVE); URINE BLOOD NEGATIVE (NEGATIVE); URINE CLARITY Clear (Clear); URINE COLOR Straw (YELLOW); URINE GLUCOSE (UA) 1+ mg/dL (Normal); URINE LEUKOCYTE ESTERASE NEG Leu/uL (Negative); URINE PROTEIN 3+ mg/dL (NEGATIVE); URINE UROBILINOGEN NORMAL mg/dL (0.2-1.0)
[2018-10-16 13:39] LABS: INR 1.1; PROTHROMBIN TIME 12.1 SECONDS (9.7-12.2)
[2018-10-16 13:45] LABS: ALB/GLOB RATIO 0.9 (1.0-2.1); ALBUMIN 3.2 g/dL (3.5-5.0); CALCIUM 8.5 mg/dl (8.6-10.4)
--- NOTE | 2018-10-16 13:47 | CT ---
Date of service: 10/16/2018 PROCEDURE: CT HEAD WITHOUT CONTRAST. HISTORY: dizzy, fell COMPARISON: Noncontrast head CT performed 02/05/18 TECHNIQUE: Axial computed tomography images were obtained through the head/brain without intravenous contrast. Radiation dose: Total exam DLP = 1069.36 mGy-cm. This CT exam was performed using one or more of the following dose reduction techniques: Automated exposure control, adjustment of the mA and/or kV according to patient size, and/or use of iterative reconstruction technique. FINDINGS: HEMORRHAGE: No intracranial hemorrhage. BRAIN: Diffuse atrophy with prominence of the ventricles and sulci noted. No mass effect or edema. Intracranial atherosclerosis. 5 mm right basal ganglia lacunar infarct. Scattered white matter hypodensities, which are nonspecific, but often seen with chronic microvascular ischemic disease. Please note that MRI with diffusion imaging is more sensitive in the detection of acute ischemic event. VENTRICLES: No hydrocephalus. CALVARIUM: Unremarkable. PARANASAL SINUSES: Unremarkable as visualized. No significant inflammatory changes. MASTOID AIR CELLS: Unremarkable as visualized. No inflammatory changes. OTHER FINDINGS: Calcification re-identified, posterior right globe. Partial opacification of the external auditory canals, likely cerumen. IMPRESSION: Generalized atrophy. Nonspecific white matter changes. 5 mm right basal ganglia lacunar type infarct. Partial opacification of the external auditory canals, likely cerumen.
[2018-10-16 13:53] LABS: CK-MB 6.96 ng/mL (0.0-3.38); TROPONIN I 0.014 ng/mL (0.00-0.120)
--- NOTE | 2018-10-16 14:53 | RAD ---
Date of service: 10/16/2018 PROCEDURE: Left Knee Radiographs. HISTORY: Pain. COMPARISON: Bilateral knee radiographs dated 12/24/2014. FINDINGS: BONES: No acute fracture. JOINTS: Unremarkable. JOINT EFFUSION: None. OTHER FINDINGS: Quadriceps tendon enthesophyte. IMPRESSION: Limited evaluation due to contracted left lower extremity. No demonstrated fracture or dislocation.
--- NOTE | 2018-10-16 14:54 | RAD ---
Date of service: Chest radiograph dated 02/05/2018. 10/16/2018 PROCEDURE: Radiographs of the Chest and Right Ribs. HISTORY: near syncope, fall COMPARISON: Chest radiograph dated 02/05/2018. TECHNIQUE: Frontal radiograph of the chest and multiple oblique radiographs of the right ribs were obtained. FINDINGS: RIGHT RIBS: No fracture or focal lesion visualized. LUNGS: Clear. PLEURA: Elevation of the left hemidiaphragm. No pneumothorax or pleural fluid. CARDIOVASCULAR: Aortic atherosclerotic calcifications. Cardiomediastinal silhouette stably enlarged. OTHER FINDINGS: None. IMPRESSION: Unremarkable radiographs of the chest and right ribs. No right rib fracture.
[2018-10-16] MEDS ORDERED: Enoxaparin 80 mg Syringe SC STA (16:00)
[2018-10-16] MEDS ORDERED: Enoxaparin 80 mg Syringe ONE (16:00)
[2018-10-16] MEDS: Enoxaparin 40 mg Syringe SC STA ×2 (16:37→16:38)
[2018-10-16] MEDS ORDERED: Morphine 4 MG/ML VIAL IVP ONE (21:11)
[2018-10-16] MEDS: (Novolog) Insulin Aspart, Recombinant 100 u/ml 10 ml vial SC SCH (21:48)
[2018-10-17] MEDS ORDERED: Enoxaparin 60 mg Syringe SC SCH (06:00)
[2018-10-17] MEDS: (Novolog) Insulin Aspart, Recombinant 100 u/ml 10 ml vial SC SCH ×4 (07:34→21:25)
--- NOTE | 2018-10-17 08:30 | CP.PCM.HP ---
History of Present Illness - History of Present Illness History of Present Illness: CC: Fall 68 y/o male with HTN, NIDDM & s/p CVA w/ residual left hemiparesis. Patient fell on 10/12/18 and sustained 3 large wound. he was brought to ER c/o L knee pain. Work up showed a left DVT & slight inc WBC w/ left shift. Pt was admitted Present on Admission - Present on Admission Any Indicators Present on Admission: Yes History of DVT/PE: No History of Uncontrolled Diabetes: No Urinary Catheter: No Decubitus Ulcer Present: No Review of Systems - Review of Systems Systems not reviewed;Unavailable: Acuity of Condition - Constitutional Constitutional: Anorexia, Frequent Falls, Weakness. absent: Malaise, Snoring - EENT Eyes: absent: Diplopia, Loss of Peripheral Vision, Spots in Vision, Loss of Vision Ears: absent: Ear Discharge, Tinnitus, Dizziness Nose/Mouth/Throat: absent: Nasal Discharge, Change in Voice, Dry Mouth, Mouth Lesions, Sore Throat, Neck Mass - Cardiovascular Cardiovascular: Leg Ulcers. absent: Chest Pain, Dyspnea on Exertion, Leg Edema, Palpitations, Pedal Edema - Respiratory Respiratory: Cough. absent: Snoring, Chest Congestion - Gastrointestinal Gastrointestinal: absent: Abdominal Pain, Bloating, Diarrhea, Dysphagia, H eartburn, Nausea, Vomiting - Genitourinary Genitourinary: absent: Dysuria, Urinary Hesitance, Urinary Urgency, Freq UTI - Musculoskeletal Musculoskeletal: absent: Back Pain, Loss of Height, Muscle Weakness, Neck Pain - Integumentary Integumentary: Change in Hair, Sores, Wounds - Neurological Neurological: Abnormal Gait, Focal Weakness. absent: Dizziness, Numbness, Loss of Vision, Tingling - Hematologic/Lymphatic Hematologic: absent: Easy Bleeding, Lymphadenopathy Past Patient History - Infectious Disease Hx of Infectious Diseases: None - Past Medical History & Family History Past Medical History?: Yes - Past Social History Smoking Status: Former Smoker - CARDIAC Hx Hypercholesterolemia: Yes Hx Hypertension: Yes - PULMONARY Hx Respiratory Disorders: No - NEUROLOGICAL Hx Neurological Disorder: Yes HX Cerebrovascular Accident: Yes (LT side paraysis) - HEENT Hx HEENT Problems: Yes Hx Cataracts: Yes (LEFT EYE) Other/Comment: Hard of Hearing Rt side - RENAL Hx Chronic Kidney Disease: No - ENDOCRINE/METABOLIC Hx Endocrine Disorders: Yes Hx Diabetes Mellitus Type 2: Yes - HEMATOLOGICAL/ONCOLOGICAL Hx Anemia: Yes (IRON DEFICIENCY) - INTEGUMENTARY Hx Dermatological Problems: No - MUSCULOSKELETAL/RHEUMATOLOGICAL Hx Musculoskeletal Disorders: Yes Hx Falls: No Hx Unsteady Gait: Yes (Secondary to CVA w/LTside affected) - GASTROINTESTINAL Hx Gall Bladder Disease: Yes - GENITOURINARY/GYNECOLOGICAL Hx Genitourinary Disorders: Yes - PSYCHIATRIC Hx Substance Use: No - SURGICAL HISTORY Hx Carotid Endarterectomy: Yes (Rt side) Hx Cholecystectomy: Yes Hx Coronary Stent: Yes - ANESTHESIA Hx Anesthesia: Yes Hx Anesthesia Reactions: No Hx Malignant Hyperthermia: No Meds Allergies/Adverse Reactions: Allergies Allergy/AdvReac Type Severity Reaction Status Date / Time No Known Allergies Allergy Verified 10/16/18 12:08 Physical Exam - Constitutional Appears: Well - Eye Exam Eye Exam: Normal appearance - ENT Exam ENT Exam: Mucous Membranes Moist - Neck Exam Neck exam: Positive for: Full Rom, Normal Inspection. Negative for: Lymphadenopathy, Thyromegaly - Respiratory Exam Respiratory Exam: Clear to Auscultation Bilateral. absent: Rales, Rhonchi, Wheezes - Cardiovascular Exam Cardiovascular Exam: REGULAR RHYTHM, +S1, +S2. absent: Gallop - GI/Abdominal Exam GI & Abdominal Exam: Soft. absent: Guarding, Tenderness - Extremities Exam Extremities exam: Positive for: joint swelling. Negative for: calf tenderness, normal capillary refill, pedal edema Results - Vital Signs Recent Vital Signs: Last Vital Signs Temp 98.4 F 10/17/18 07:25 Pulse 74 10/17/18 07:25 Resp 20 10/17/18 07:25 BP 142/61 10/17/18 07:25 Pulse Ox 95 10/17/18 08:13 - Labs Result Diagrams: 10/16/18 13:18 10/16/18 13:18 Labs: Laboratory Results - last 24 hr 10/16/18 10/16/18 10/16/18 12:00 13:18 13:18 WBC 11.6 H D RBC 3.70 L Hgb 9.3 L Hct 28.5 L MCV 77.0 L D MCH 25.2 L MCHC 32.7 L RDW 15.2 H Plt Count 594 H D MPV 8.4 Neut % (Auto) 75.4 H Lymph % (Auto) 12.5 L [place] % (Auto) 9.5 Eos % (Auto) 2.0 Baso % (Auto) 0.6 Neut # (Auto) 8.7 H Lymph # (Auto) 1.5 [place] # (Auto) 1.1 H Eos # (Auto) 0.2 Baso # (Auto) 0.1 PT 12.1 INR 1.1 APTT 34 Sodium Potassium Chloride Carbon Dioxide Anion Gap BUN Creatinine Est GFR ( Amer) Est GFR (Non-Af Amer) POC Glucose (mg/dL) 226 H Random Glucose Calcium Magnesium Total Bilirubin AST ALT Alkaline Phosphatase Total Creatine Kinase CK-MB (Mass) Troponin I Total Protein Albumin Globulin Albumin/Globulin Ratio Lipase Urine Color Urine Clarity Urine pH Ur Specific [place] Urine Protein Urine Glucose (UA) Urine Ketones Urine Blood Urine Nitrate Urine Bilirubin Urine Urobilinogen Ur Leukocyte Esterase Urine WBC (Auto) Urine RBC (Auto) Ur Squamous Epith Cells 10/16/18 10/16/18 10/16/18 13:18 13:18 17:42 WBC RBC Hgb Hct MCV MCH MCHC RDW Plt Count MPV Neut % (Auto) Lymph % (Auto) [place] % (Auto) Eos % (Auto) Baso % (Auto) Neut # (Auto) Lymph # (Auto) [place] # (Auto) Eos # (Auto) Baso # (Auto) PT INR APTT Sodium 131 L Potassium 4.0 Chloride 97 L Carbon Dioxide 26 Anion Gap 12 BUN 41 H Creatinine 2.6 H Est GFR ( Amer) 30 Est GFR (Non-Af Amer) 25 POC Glucose (mg/dL) 201 H Random Glucose 200 H Calcium 8.5 L Magnesium 2.1 Total Bilirubin 0.3 AST 40 ALT 36 Alkaline Phosphatase 232 H D Total Creatine Kinase 471 H CK-MB (Mass) 6.96 H Troponin I 0.0140 Total Protein 6.7 Albumin 3.2 L Globulin 3.4 Albumin/Globulin Ratio 0.9 L Lipase 391 H Urine Color Straw Urine Clarity Clear Urine pH 5.0 Ur Specific [place] 1.011 Urine Protein 3+ H Urine Glucose (UA) 1+ H Urine Ketones Negative Urine Blood Negative Urine Nitrate Negative Urine Bilirubin Negative Urine Urobilinogen Normal Ur Leukocyte Esterase Neg Urine WBC (Auto) 1 Urine RBC (Auto) < 1 Ur Squamous Epith Cells < 1 10/17/18 06:35 WBC RBC Hgb Hct MCV MCH MCHC RDW Plt Count MPV Neut % (Auto) Lymph % (Auto) [place] % (Auto) Eos % (Auto) Baso % (Auto) Neut # (Auto) Lymph # (Auto) [place] # (Auto) Eos # (Auto) Baso # (Auto) PT INR APTT Sodium Potassium Chloride Carbon Dioxide Anion Gap BUN Creatinine Est GFR ( Amer) Est GFR (Non-Af Amer) POC Glucose (mg/dL) 120 H Random Glucose Calcium Magnesium Total Bilirubin AST ALT Alkaline Phosphatase Total Creatine Kinase CK-MB (Mass) Troponin I Total Protein Albumin Globulin Albumin/Globulin Ratio Lipase Urine Color Urine Clarity Urine pH Ur Specific [place] Urine Protein Urine Glucose (UA) Urine Ketones Urine Blood Urine Nitrate Urine Bilirubin Urine Urobilinogen Ur Leukocyte Esterase Urine WBC (Auto) Urine RBC (Auto) Ur Squamous Epith Cells - EKG Data EKG Interpreted by: Myself EKG shows normal: Sinus rhythm Rate: Normal Assessment & Plan - Assessment and Plan (Free Text) Assessment: Left DVT; infected open wounds - left knee/ leg NIDDM, HTN, w/ hemiparesis k Keflex and anticoagulation Cont OPD meds except Amaryl
--- NOTE | 2018-10-17 09:23 | CP.PCM.CON ---
History of Present Illness - History of Present Illness History of Present Illness: CC near syncope HPI 68 y/o male with a PMHx of HTN, DM, and CVA with residual left-sided weakness, brought in by for evaluation of left knee pain s/p fall on 10/12/18. Patient reports he suddenly felt dizzy while attempting to stand, and fell striking the left leg. was assisting him at that time, and slowly lowered to the ground. There was no head trauma or LOC. Patient had also reported some rib pain. He is now complaining of left leg pain, worse at the left knee. reports patient has been unable to straighten the leg knee. also notes prior to the incident, patient developed diarrhea, which he has had for 5 days. Additionally patient is complaining of abdominal pain and nausea, no vomiting. Denies recent antibiotic use. Patient ambulates with wheelchair at baseline since CVA years ago. He continues to complain of intermittent dizziness. Otherwise patient denies chest pain, SOB, visual changes, change in speech, or new focal deficit Review of Systems - Constitutional Constitutional: Weakness - Cardiovascular Cardiovascular: Lightheadedness - Neurological Additional comments: residual left hemiparesis from previous old CVA Past Patient History - Infectious Disease Hx of Infectious Diseases: None - Past Medical History & Family History Past Medical History?: Yes - Past Social History Smoking Status: Former Smoker - CARDIAC Hx Hypercholesterolemia: Yes Hx Hypertension: Yes - PULMONARY Hx Respiratory Disorders: No - NEUROLOGICAL Hx Neurological Disorder: Yes HX Cerebrovascular Accident: Yes (LT side paraysis) - HEENT Hx HEENT Problems: Yes Hx Cataracts: Yes (LEFT EYE) Other/Comment: Hard of Hearing Rt side - RENAL Hx Chronic Kidney Disease: No - ENDOCRINE/METABOLIC Hx Endocrine Disorders: Yes Hx Diabetes Mellitus Type 2: Yes - HEMATOLOGICAL/ONCOLOGICAL Hx Anemia: Yes (IRON DEFICIENCY) - INTEGUMENTARY Hx Dermatological Problems: No - MUSCULOSKELETAL/RHEUMATOLOGICAL Hx Musculoskeletal Disorders: Yes Hx Falls: No Hx Unsteady Gait: Yes (Secondary to CVA w/LTside affected) - GASTROINTESTINAL Hx Gall Bladder Disease: Yes - GENITOURINARY/GYNECOLOGICAL Hx Genitourinary Disorders: Yes - PSYCHIATRIC Hx Substance Use: No - SURGICAL HISTORY Hx Carotid Endarterectomy: Yes (Rt side) Hx Cholecystectomy: Yes Hx Coronary Stent: Yes - ANESTHESIA Hx Anesthesia: Yes Hx Anesthesia Reactions: No Hx Malignant Hyperthermia: No Meds Allergies/Adverse Reactions: Allergies Allergy/AdvReac Type Severity Reaction Status Date / Time No Known Allergies Allergy Verified 10/16/18 12:08 - Medications Medications: Current Medications Amlodipine Besylate (Norvasc) 10 mg PO DAILY [facility] Carvedilol (Coreg) 12.5 mg PO BID [facility] Last Admin: 10/16/18 21:23 Dose: 12.5 mg Cephalexin Monohydrate (Keflex) 250 mg PO Q8H [facility]; Protocol Enoxaparin Sodium (Lovenox) 60 mg SC Q12H [facility] Last Admin: 10/17/18 05:59 Dose: 60 mg Famotidine (Pepcid) 20 mg PO DAILY [facility] Furosemide (Lasix) 40 mg PO DAILY [facility] Hydralazine HCl (Apresoline) 25 mg PO BID [facility] Last Admin: 10/16/18 21:23 Dose: 25 mg Insulin Aspart (Novolog) 1 unit SC ACHS [facility]; Protocol Last Admin: 10/17/18 07:34 Dose: Not Given Insulin Detemir (Levemir) 8 unit SC DAILY [facility] Rosuvastatin Calcium (Crestor) 20 mg PO HS [facility] Sitagliptin Phosphate (Januvia) 25 mg PO DAILY [facility] Physical Exam - Constitutional Appears: Non-toxic - Head Exam Head Exam: NORMAL INSPECTION - Eye Exam Eye Exam: absent: Scleral icterus - ENT Exam ENT Exam: Mucous Membranes Moist - Neck Exam Neck exam: Positive for: Full Rom - Respiratory Exam Respiratory Exam: Decreased Breath Sounds - Cardiovascular Exam Cardiovascular Exam: REGULAR RHYTHM - GI/Abdominal Exam GI & Abdominal Exam: Soft - Extremities Exam Extremities exam: Negative for: calf tenderness, pedal edema - Neurological Exam Neurological exam: Alert Results - Vital Signs Recent Vital Signs: Last Vital Signs Temp 98.4 F 10/17/18 07:25 Pulse 74 10/17/18 07:25 Resp 20 10/17/18 07:25 BP 142/61 10/17/18 07:25 Pulse Ox 95 10/17/18 08:13 - Labs Result Diagrams: 10/16/18 13:18 10/16/18 13:18 Labs: Laboratory Results - last 24 hr 10/16/18 10/16/18 10/16/18 12:00 13:18 13:18 WBC 11.6 H D RBC 3.70 L Hgb 9.3 L Hct 28.5 L MCV 77.0 L D MCH 25.2 L MCHC 32.7 L RDW 15.2 H Plt Count 594 H D MPV 8.4 Neut % (Auto) 75.4 H Lymph % (Auto) 12.5 L [place] % (Auto) 9.5 Eos % (Auto) 2.0 Baso % (Auto) 0.6 Neut # (Auto) 8.7 H Lymph # (Auto) 1.5 [place] # (Auto) 1.1 H Eos # (Auto) 0.2 Baso # (Auto) 0.1 PT 12.1 INR 1.1 APTT 34 Sodium Potassium Chloride Carbon Dioxide Anion Gap BUN Creatinine Est GFR ( Amer) Est GFR (Non-Af Amer) POC Glucose (mg/dL) 226 H Random Glucose Calcium Magnesium Total Bilirubin AST ALT Alkaline Phosphatase Total Creatine Kinase CK-MB (Mass) Troponin I Total Protein Albumin Globulin Albumin/Globulin Ratio Lipase Urine Color Urine Clarity Urine pH Ur Specific [place] Urine Protein Urine Glucose (UA) Urine Ketones Urine Blood Urine Nitrate Urine Bilirubin Urine Urobilinogen Ur Leukocyte Esterase Urine WBC (Auto) Urine RBC (Auto) Ur Squamous Epith Cells 10/16/18 10/16/18 10/16/18 13:18 13:18 17:42 WBC RBC Hgb Hct MCV MCH MCHC RDW Plt Count MPV Neut % (Auto) Lymph % (Auto) [place] % (Auto) Eos % (Auto) Baso % (Auto) Neut # (Auto) Lymph # (Auto) [place] # (Auto) Eos # (Auto) Baso # (Auto) PT INR APTT Sodium 131 L Potassium 4.0 Chloride 97 L Carbon Dioxide 26 Anion Gap 12 BUN 41 H Creatinine 2.6 H Est GFR ( Amer) 30 Est GFR (Non-Af Amer) 25 POC Glucose (mg/dL) 201 H Random Glucose 200 H Calcium 8.5 L Magnesium 2.1 Total Bilirubin 0.3 AST 40 ALT 36 Alkaline Phosphatase 232 H D Total Creatine Kinase 471 H CK-MB (Mass) 6.96 H Troponin I 0.0140 Total Protein 6.7 Albumin 3.2 L Globulin 3.4 Albumin/Globulin Ratio 0.9 L Lipase 391 H Urine Color Straw Urine Clarity Clear Urine pH 5.0 Ur Specific [place] 1.011 Urine Protein 3+ H Urine Glucose (UA) 1+ H Urine Ketones Negative Urine Blood Negative Urine Nitrate Negative Urine Bilirubin Negative Urine Urobilinogen Normal Ur Leukocyte Esterase Neg Urine WBC (Auto) 1 Urine RBC (Auto) < 1 Ur Squamous Epith Cells < 1 10/16/18 10/17/18 21:33 06:35 WBC RBC Hgb Hct MCV MCH MCHC RDW Plt Count MPV Neut % (Auto) Lymph % (Auto) [place] % (Auto) Eos % (Auto) Baso % (Auto) Neut # (Auto) Lymph # (Auto) [place] # (Auto) Eos # (Auto) Baso # (Auto) PT INR APTT Sodium Potassium Chloride Carbon Dioxide Anion Gap BUN Creatinine Est GFR ( Amer) Est GFR (Non-Af Amer) POC Glucose (mg/dL) 212 H 120 H Random Glucose Calcium Magnesium Total Bilirubin AST ALT Alkaline Phosphatase Total Creatine Kinase CK-MB (Mass) Troponin I Total Protein Albumin Globulin Albumin/Globulin Ratio Lipase Urine Color Urine Clarity Urine pH Ur Specific [place] Urine Protein Urine Glucose (UA) Urine Ketones Urine Blood Urine Nitrate Urine Bilirubin Urine Urobilinogen Ur Leukocyte Esterase Urine WBC (Auto) Urine RBC (Auto) Ur Squamous Epith Cells Assessment & Plan - Assessment and Plan (Free Text) Assessment: Near syncope HTN Anemia CKD stage3 T2dm Plan: Echo Lexiscan Carotid ultrasound Tilt Table test Agree with meds Neuro work up - Date & Time Date: 10/17/18 Time: 09:15
--- NOTE | 2018-10-17 11:05 | CARD ---
APPROVED REPORT Date of service: 10/16/2018 EKG Measurement Heart [id number] <Conclusion> Normal sinus rhythm Moderate voltage criteria for LVH, may be normal variant Inferior infarct, age undetermined Abnormal ECG
[2018-10-17] MEDS: Oxycodone/Acetaminophen 5/325 mg Tab PO PRN ×2 (11:16→18:00)
[2018-10-17] MEDS: Insulin Detemir 100 units/ml Vial (Levemir) SC SCH (11:17)
[2018-10-17] MEDS ORDERED: Cephalexin Susp 250 MG/5 ML PO SCH (12:00)
--- NOTE | 2018-10-17 14:00 | VASCLAB ---
Date of service: 10/16/2018 PROCEDURE: Lower Extremity Venous Duplex Exam. HISTORY: LLE pain PRIORS: None. TECHNIQUE: Bilateral common femoral, femoral, popliteal and posterior tibial, peroneal and great saphenous veins were evaluated. Flow was assessed with color Doppler, compressibility, assessment of phasic flow and augmentation response. Report prepared by ELIZABETH Vu FINDINGS: RIGHT: 1. Common Femoral Vein: 1.1. Compressibility - Fully compressible: Thrombus - None : Flow - Phasic: Augmentation -Normal: Reflux - None. 2. Femoral Vein: 2.1. Compressibility - Fully compressible: Thrombus - None : Flow - Phasic: Augmentation -Normal: Reflux - None. 3. Popliteal Vein: 3.1. Compressibility - Fully compressible: Thrombus - None : Flow - Phasic: Augmentation -Normal: Reflux - None. 4. Posterior Tibial Vein: 4.1. Compressibility - Fully compressible: Thrombus - None: Flow - Phasic: Augmentation -Normal: Reflux - None. 5. Peroneal Vein: 5.1. Compressibility - Fully compressible: Thrombus - None: Flow - Phasic: Augmentation -Normal: Reflux - None. 6. Great Saphenous Vein: 6.1. Compressibility - Fully compressible: Thrombus - None: Flow - Phasic: Augmentation - Normal: Reflux - None. LEFT: 1. Common Femoral Vein: 1.1. Compressibility - Fully compressible: Thrombus - None: Flow - Phasic: Augmentation -Normal: Reflux - None. 2. Femoral Vein: 2.1. Compressibility - Fully compressible: Thrombus - None: Flow - Phasic: Augmentation -Normal: Reflux - None. 3. Popliteal Vein: 3.1. Compressibility - Fully compressible: Thrombus - None : Flow - Phasic: Augmentation -Normal: Reflux - None. 4. Posterior Tibial Vein: 4.1. Compressibility - Fully compressible: Thrombus - None: Flow - Phasic: Augmentation -Normal: Reflux - None. 5. Peroneal Vein: 5.1. Compressibility - Partial: Thrombus - Acute: Flow - Reduced 6. Great Saphenous Vein: 6.1. Compressibility - Fully compressible: Thrombus - None: Flow - Phasic: Augmentation - Normal: Reflux - None. OTHER FINDINGS: Right: None significant. Left: One of the paired peroneal veins was not compressible, at the mid calf level. Findings were reported to [facility] Nowak at 2:24 p.m. IMPRESSION: Right: No evidence of deep or superficial vein thrombosis of the right lower extremity. Normal valve function noted of the right side. Left: Partial acute deep vein thrombosis of one peroneal vein at the mild calf, with mild reduction of the venous return.
--- NOTE | 2018-10-17 19:11 | CP.PCM.CON ---
History of Present Illness - History of Present Illness History of Present Illness: 68 y/o male with a PMHx of HTN, DM, and CVA with residual left-sided weakness, brought in by for evaluation of left knee pain s/p fall on 10/12/18. reports patient has been unable to straighten the leg knee. also notes pr ior to the incident, patient developed diarrhea, which he has had for 5 days. Additionally patient is complaining of abdominal pain and nausea, no vomiting. Denies recent antibiotic use. Patient ambulates with wheelchair at baseline since CVA years ago. He continues to complain of intermittent dizziness. referred for ID evaluation of left knee wound - Medical History PMH: Anemia (IRON DEFICIENCY), CAD, Colonic Polyps, CVA (with L-sided weakness), Diabetes, Gall Bladder Disease, HTN, Hypercholesterolemia Denies: Chronic Kidney Disease Surgical History: Carotid Endarterectomy (Rt side), Cholecystectomy, Coronary Stent, Hernia Repair Family History: States: Unknown Family Hx Review of Systems - Constitutional Constitutional: As Per HPI - EENT Eyes: absent: As Per HPI, Blind Spots, Blurred Vision, Change in Vision, Decreased Night Vision, Diplopia, Discharge, Dry Eye, Exophthalmos, Floaters, Irritation, Itchy Eyes, Loss of Peripheral Vision, Pain, Photophobia, Requires Corrective Lenses, Sees Flashes, Spots in Vision, Tunnel Vision, Other Visual Disturbances, Loss of Vision, Other Ears: absent: As Per HPI, Decreased Hearing, Ear Discharge, Ear Pain, Tinnitus, Abnormal Hearing, Disequilibrium, Dizziness, Other Nose/Mouth/Throat: absent: As Per HPI, Epistaxis, Nasal Congestion, Nasal Discharge, Nasal Obstruction, Nasal Trauma, Nose Pain, Post Nasal Drip, Sinus Pain, Sinus Pressure, Bleeding Gums, Change in Voice, Dental Pain, Dry Mouth, Dysphagia, Halitosis, Hoarsness, Lip Swelling, Mouth Lesions, Mouth Pain, Odynophagia, Sore Throat, Throat Swelling, Tongue Swelling, Facial Pain, Neck Pain, Neck Mass, Other - Cardiovascular Cardiovascular: As Per HPI - Respiratory Respiratory: absent: As Per HPI, Cough, Dyspnea, Hemoptysis, Dyspnea on Exertion, Wheezing, Snoring, Stridor, Pain on Inspiration, Chest Congestion, Excessive Mucous Production, Change in Mucous Color, Pain with Coughing, Other - Gastrointestinal Gastrointestinal: absent: As Per HPI, Abdominal Pain, Belching, Bloating, Change in Bowel Habits, Change in Stool Character, Coffee Ground Emesis, Constipation, Cramping, Diarrhea, Dyspepsia, Dysphagia, Early Satiety, Excessive Flatus, Fecal Incontinence, Heartburn, Hematemesis, Hematochezia, Loose Stools, Melena, Nausea, Odynophagia, Temesmus, Vomiting, Other - Genitourinary Genitourinary: absent: As Per HPI, Change in Urinary Stream, Difficulty Urinat ing, Dysuria, Flank Pain, Hematuria, Pyuria, Nocturia, Urinary Incontinence, Urinary Frequency, Urinary Hesitance, Urinary Urgency, Voiding Freq/Small Amts, Freq UTI, Hx Renal/Bladder Calculi, Hx /Renal Surgery, Bladder Distension, Other - Musculoskeletal Musculoskeletal: As Per HPI, Abnormal Gait - Integumentary Integumentary: As Per HPI, Skin Pain, Wounds - Neurological Neurological: absent: As Per HPI, Abnormal Gait, Abnormal Hearing, Abnormal Movements, Abnormal Speech, Behavioral Changes, Burning Sensations, Confusion, Convulsions, Disequilibrium, Dizziness, Numbness, Focal Weakness, Frequent Falls, Headaches, Lack of Coordination, Loss of Vision, Memory Loss, Paresth esias, Radicular Pain, Restless Legs, Sensory Deficit, Syncope, Tingling, Tremor, Vertigo, Weakness, Other Visual Disturbances, Other - Psychiatric Psychiatric: absent: As Per HPI, Abnormal Sleep Pattern, Anhedonia, Anxiety, Auditory Hallucinations, Behavioral Changes, Change in Appetite, Change in Libido, Confusion, Depression, Difficulty Concentrating, Hallucinations, Homicidal Ideation, Hopelessness, Irritability, Memory Loss, Mood Swings, Panic Attacks, Paranoia, Suicidal Ideation, Visual Hallucinations, Tactile Hallucinations, Other - Endocrine Endocrine: absent: As Per HPI, Change in Body Appearance, Change in Libido, Cold Intolorance, Deepening of Voice, Excessive Sweating, Fatigue, Flushing, Heat Intolorance, Increase in Ring/Shoe/Hat Size, Palpitations, Polydipsia, Polyphagia, Polyuria, Other - Hematologic/Lymphatic Hematologic: absent: As Per HPI, Easy Bleeding, Easy Bruising, Lymphadenopathy, Other Past Patient History - Infectious Disease Hx of Infectious Diseases: None - Past Medical History & Family History Past Medical History?: Yes - Past Social History Smoking Status: Former Smoker - CARDIAC Hx Hypercholesterolemia: Yes Hx Hypertension: Yes - PULMONARY Hx Respiratory Disorders: No - NEUROLOGICAL HX Cerebrovascular Accident: Yes - HEENT Hx HEENT Problems: Yes Hx Cataracts: Yes (LEFT EYE) Other/Comment: Hard of Hearing Rt side - RENAL Hx Chronic Kidney Disease: No - ENDOCRINE/METABOLIC Hx Endocrine Disorders: Yes Hx Diabetes Mellitus Type 2: Yes - HEMATOLOGICAL/ONCOLOGICAL Hx Anemia: Yes (IRON DEFICIENCY) - INTEGUMENTARY Hx Dermatological Problems: No - MUSCULOSKELETAL/RHEUMATOLOGICAL Hx Musculoskeletal Disorders: Yes Hx Falls: No Hx Unsteady Gait: Yes (Secondary to CVA w/LTside affected) - GASTROINTESTINAL Hx Gall Bladder Disease: Yes - GENITOURINARY/GYNECOLOGICAL Hx Genitourinary Disorders: Yes - PSYCHIATRIC Hx Substance Use: No - SURGICAL HISTORY Hx Carotid Endarterectomy: Yes (Rt side) Hx Cholecystectomy: Yes Hx Coronary Stent: Yes - ANESTHESIA Hx Anesthesia: Yes Hx Anesthesia Reactions: No Hx Malignant Hyperthermia: No Meds Allergies/Adverse Reactions: Allergies Allergy/AdvReac Type Severity Reaction Status Date / Time No Known Allergies Allergy Verified 10/16/18 12:08 - Medications Medications: Current Medications Amlodipine Besylate (Norvasc) 10 mg PO DAILY [facility] Last Admin: 10/17/18 11:17 Dose: 10 mg Carvedilol (Coreg) 12.5 mg PO BID [facility] Last Admin: 10/17/18 17:57 Dose: 12.5 mg Cephalexin Monohydrate (Keflex) 250 mg PO Q8H [facility]; Protocol Enoxaparin Sodium (Lovenox) 60 mg SC Q24H [facility] Famotidine (Pepcid) 20 mg PO DAILY [facility] Last Admin: 10/17/18 11:17 Dose: 20 mg Furosemide (Lasix) 40 mg PO DAILY [facility] Last Admin: 10/17/18 11:18 Dose: 40 mg Hydralazine HCl (Apresoline) 25 mg PO BID [facility] Last Admin: 10/17/18 17:57 Dose: 25 mg Insulin Aspart (Novolog) 1 unit SC [facility]; Protocol Last Admin: 10/17/18 17:00 Dose: Not Given Insulin Detemir (Levemir) 8 unit SC DAILY [facility] Last Admin: 10/17/18 11:17 Dose: 8 units Oxycodone/Acetaminophen (Percocet 5/325 Mg Tab) 1 tab PO Q6H PRN PRN Reason: Pain, moderate (4-7) Stop: 01/26/19 11:10 Last Admin: 10/17/18 18:00 Dose: 1 tab Pneumococcal Polyvalent Vaccine (Pneumovax 23 Vaccine) 0.5 ml IM .ONCE ONE Stop: 10/18/18 12:01 Rosuvastatin Calcium (Crestor) 20 mg PO HS [facility] Sitagliptin Phosphate (Januvia) 25 mg PO DAILY [facility] Last Admin: 10/17/18 11:17 Dose: 25 mg Physical Exam - Constitutional Appears: Non-toxic, No Acute Distress, Chronically Ill - Head Exam Head Exam: ATRAUMATIC, NORMOCEPHALIC - Eye Exam Eye Exam: PERRL. absent: Scleral icterus - ENT Exam ENT Exam: Mucous Membranes Dry - Neck Exam Neck exam: Negative for: Lymphadenopathy - Respiratory Exam Respiratory Exam: Decreased Breath Sounds, Clear to Auscultation Bilateral - Cardiovascular Exam Cardiovascular Exam: REGULAR RHYTHM, +S1, +S2 - GI/Abdominal Exam GI & Abdominal Exam: Diminished Bowel Sounds, Soft. absent: Tenderness - Rectal Exam Rectal Exam: Deferred - Exam Exam: NORMAL INSPECTION - Extremities Exam Extremities exam: Positive for: pedal edema, pedal pulses present. Negative for: calf tenderness, normal capillary refill, normal inspection, tenderness - Back Exam Back exam: absent: CVA tenderness (L), CVA tenderness (R), paraspinal tenderness - Neurological Exam Neurological exam: Alert, CN II-XII Intact, Motor Sensory Deficit, Oriented x3, Reflexes Normal Additional comments: left sided weakness + - Psychiatric Exam Psychiatric exam: Depressed - Skin Skin Exam: Dry Additional comments: contusion left knee Results - Vital Signs Recent Vital Signs: Last Vital Signs Temp 97.5 F L 10/17/18 15:23 Pulse 76 10/17/18 15:23 Resp 18 10/17/18 15:23 BP 127/68 10/17/18 17:57 Pulse Ox 96 10/17/18 15:23 - Labs Result Diagrams: 10/16/18 13:18 10/16/18 13:18 Labs: Laboratory Results - last 24 hr 10/16/18 10/17/18 10/17/18 21:33 06:35 10:59 POC Glucose (mg/dL) 212 H 120 H 251 H 10/17/18 16:44 POC Glucose (mg/dL) 129 H Assessment & Plan (1) Near syncope Status: Acute (2) Abnormal physical evaluation Status: Acute (3) Chest pain Status: Acute (4) Dehydration Status: Acute (5) Diabetes Status: Acute (6) Elevated lipase Status: Acute (7) DVT of leg (deep venous thrombosis) Status: Acute (8) Syncope Status: Acute (9) Elevated CPK Status: Acute (10) Renal insufficiency Status: Acute (11) Weakness Status: Acute (12) Hypercholesteremia Status: Chronic - Assessment and Plan (Free Text) Plan: cont wound care start IV antibiotics cardio and renal eval in progress
[2018-10-17] MEDS: ceFAZolin 1 GM in Sodium Chloride 0.9% 100 ML IVPB SCH (21:24)
[2018-10-18] MEDS: ceFAZolin 1 GM in Sodium Chloride 0.9% 100 ML IVPB SCH ×3 (03:59→19:03)
[2018-10-18] MEDS: Enoxaparin 60 mg Syringe SC SCH (05:24)
[2018-10-18 07:08] LABS: BASO # 0.1 K/uL (0.0-0.2); BASO % 0.6 % (0.0-2.0); EOS # 0.2 K/uL (0.0-0.7); EOS % 1.7 % (0.0-4.0); HEMOGLOBIN 7.6 g/dL (12.0-18.0); LYMPH # 1.5 K/uL (1.0-4.3); LYMPH % 15.1 % (20.0-40.0); MEAN CELL VOLUME 76.5 fL (80.0-94.0); MEAN CORPUSCULAR HEMOGLOBIN 24.4 pg (27.0-31.0); MEAN CORPUSCULAR HGB CONC 31.9 g/dL (33.0-37.0); MEAN PLATELET VOLUME 8.1 fL (7.2-11.7); MONO # 1.1 K/uL (0.0-0.8); MONO % 11.3 % (0.0-10.0); NEUT # 7.1 K/uL (1.8-7.0); NEUT % 71.3 % (50.0-75.0); RBC 3.12 Mil/uL (4.40-5.90); RED CELL DISTRIBUTION WIDTH 15.3 % (11.5-14.5); WHITE BLOOD COUNT 9.9 K/uL (4.8-10.8)
[2018-10-18] MEDS: Insulin Detemir 100 units/ml Vial (Levemir) SC SCH (10:59)
[2018-10-18] MEDS: (Novolog) Insulin Aspart, Recombinant 100 u/ml 10 ml vial SC SCH ×4 (11:49→22:09)
[2018-10-18] MEDS ORDERED: Pneumococcal 23-Valent Vaccine IM ONE (12:00)
[2018-10-18] MEDS: Oxycodone/Acetaminophen 5/325 mg Tab PO PRN ×2 (12:24→20:58)
--- NOTE | 2018-10-18 14:52 | CARD ---
APPROVED REPORT Date of service: 10/18/2018 EXAM: Two-dimensional and M-mode echocardiogram with Doppler and color Doppler. Other Information Quality : GoodRhythm : INDICATION Chest Pain RISK FACTORS Diabetes 2D DIMENSIONS IVSd1.0 (0.7-1.1cm)LVDd5.1 (3.9-5.9cm) PWd0.9 (0.7-1.1cm)LA Jfmqyc61 (18-58mL) LVDs3.0 (2.5-4.0cm)FS (%) 40.3 % LVEF (%)70.7 (>50%)LVEF (Walsh's)70 % M-Mode DIMENSIONS Left Atrium (MM)3.05 (2.5-4.0cm)IVSd1.21 (0.7-1.1cm) Aortic Root3.11 (2.2-3.7cm)LVDd4.87 (4.0-5.6cm) Aortic Cusp Exc.1.91 (1.5-2.0cm)PWd1.13 (0.7-1.1cm) FS (%) 40 %LVDs2.92 (2.0-3.8cm) LVEF (%)71 (>50%) Mitral Valve MV E Gxwlnsor83.9cm/sMV A Flkmbioq79.8cm/sE/A ratio0.9 TDI Lateral E' Peak V9.19cm/sMedial E' Peak V5.51cm/sE/Lateral E'9.5 E/Medial E'15.8 Tricuspid Valve TR Peak Nfxegnqv756nx/sTR Peak [id number] <Conclusion> normal size la,lv & ra rv. normal lv wall motion,thickness,systolic & diastolic function with lvef of 60-65%. normal mitral,tv & pv. mildly sclerotic trileaflet aortic valve. mild tr,trace pi with calculated pulmonary systolic pressures of 42 mm of hg,c/w mild pulmonary hypertension,. normal size aortic root. no pericardial effusion,
--- NOTE | 2018-10-18 18:11 | CP.PCM.PN ---
Subjective - Date & Time of Evaluation Date of Evaluation: 10/18/18 Time of Evaluation: 18:08 - Subjective Subjective: S: Awake. No syncope. No fever Objective - Vital Signs/Intake and Output Vital Signs (last 24 hours): Temp Pulse Resp BP Pulse Ox 97.8 F 66 20 146/66 98 10/18/18 15:42 10/18/18 15:42 10/18/18 15:42 10/18/18 15:42 10/18/18 15:42 Intake and Output: 10/18/18 10/18/18 06:59 18:59 Output Total 800 1400 Balance -800 -1400 - Medications Medications: Current Medications Amlodipine Besylate (Norvasc) 10 mg PO DAILY [facility] Last Admin: 10/18/18 11:03 Dose: 10 mg Carvedilol (Coreg) 12.5 mg PO BID [facility] Last Admin: 10/18/18 10:59 Dose: 12.5 mg Enoxaparin Sodium (Lovenox) 60 mg SC Q24H [facility] Last Admin: 10/18/18 05:24 Dose: 60 mg Famotidine (Pepcid) 20 mg PO DAILY [facility] Last Admin: 10/18/18 10:59 Dose: 20 mg Furosemide (Lasix) 40 mg PO DAILY [facility] Last Admin: 10/18/18 11:03 Dose: 40 mg Hydralazine HCl (Apresoline) 25 mg PO BID [facility] Last Admin: 10/18/18 10:59 Dose: 25 mg Cefazolin Sodium 1 gm/ Sodium (Chloride) 100 mls @ 100 mls/hr IVPB Q8H [facility]; Protocol Last Admin: 10/18/18 12:24 Dose: 100 mls/hr Insulin Aspart (Novolog) 1 unit SC ACHS [facility]; Protocol Last Admin: 10/18/18 16:31 Dose: Not Given Insulin Detemir (Levemir) 8 unit SC DAILY [facility] Last Admin: 10/18/18 10:59 Dose: 8 units Oxycodone/Acetaminophen (Percocet 5/325 Mg Tab) 1 tab PO Q6H PRN PRN Reason: Pain, moderate (4-7) Stop: 10/20/18 11:10 Last Admin: 10/18/18 12:24 Dose: 1 tab Rosuvastatin Calcium (Crestor) 20 mg PO HS [facility] Last Admin: 10/17/18 21:28 Dose: 20 mg Sitagliptin Phosphate (Januvia) 25 mg PO DAILY [facility] Last Admin: 10/18/18 10:59 Dose: 25 mg - Labs Labs: 10/18/18 07:00 10/16/18 13:18 PT 12.1 SECONDS (9.7-12.2) 10/16/18 13:18 INR 1.1 10/16/18 13:18 APTT 34 SECONDS (21-34) 10/16/18 13:18 - Constitutional Appears: Chronically Ill - Head Exam Head Exam: NORMAL INSPECTION - ENT Exam ENT Exam: Normal Exam - Neck Exam Neck Exam: Normal Inspection - Respiratory Exam Respiratory Exam: NORMAL BREATHING PATTERN - Cardiovascular Exam Cardiovascular Exam: REGULAR RHYTHM - GI/Abdominal Exam GI & Abdominal Exam: Soft - Rectal Exam Rectal Exam: Deferred - Extremities Exam Extremities Exam: Tenderness - Neurological Exam Neurological Exam: Alert Neuro motor strength exam: Left Upper Extremity: 5 (contractures noted), Left Lower Extremity: 5 (contractures noted) - Psychiatric Exam Psychiatric exam: Flat Affect - Skin Skin Exam: Dry Assessment and Plan (1) Near syncope Status: Acute (2) Diabetes Status: Chronic (3) Status post CVA Status: Chronic (4) DVT of lower limb, acute Status: Acute - Assessment and Plan (Free Text) Assessment: a/P: Continue medications. transfer to telemetry. [id number] pending
--- NOTE | 2018-10-18 20:09 | CP.PCM.CON ---
History of Present Illness - History of Present Illness History of Present Illness: 68 y/o male with a PMHx of HTN, DM, and CVA with residual left-sided weakness, brought in by for evaluation of left knee pain s/p fall on 10/12/18. Patient reports he suddenly felt dizzy while attempting to stand, and fell striking the left leg. was assisting him at that time, and slowly lowered to the ground. There was no head trauma or LOC. Patient had also reported some rib pain. He is now complaining of left leg pain, worse at the left knee. reports patient has been unable to straighten the leg knee. also notes prior to the incident, patient developed diarrhea, which he has had for 5 days. Additionally patient is complaining of abdominal pain and nausea, no vomiting. Denies recent antibiotic use. Patient ambulates with wheelchair at baseline since CVA years ago. He continues to complain of intermittent dizziness. Otherwise patient denies chest pain, SOB, visual changes, change in speech, or new focal deficit. He is nervous about going to the bathroom or standing up since the fall. Alejandro nunez called for increased platelet count. The patient was also found to have an acute decrease in Hgb, without any obvious bleeding. GI work up in 2017 as per was normal Review of Systems The denies any weight loss, except for initial loss, when the patient was diagnosed with DM, denies dark or tarry stool. Past Patient History - Infectious Disease Hx of Infectious Diseases: None - Past Medical History & Family History Past Medical History?: Yes - Past Social History Smoking Status: Former Smoker - CARDIAC Hx Cardiac Disorders: Yes Hx Angina: Yes Hx Hypercholesterolemia: Yes Hx Hypertension: Yes Other/Comment: Hx cad cath ( 2 vein blockage as per ),Hx of thrombosis as per , Hx stroke 4 times with left sided weakness - PULMONARY Hx Respiratory Disorders: No - NEUROLOGICAL Hx Neurological Disorder: Yes HX Cerebrovascular Accident: Yes (x4) Hx Dementia: Yes - HEENT Hx HEENT Problems: Yes Hx Cataracts: Yes (LEFT EYE) Other/Comment: Hard of Hearing - RENAL Hx Chronic Kidney Disease: No - ENDOCRINE/METABOLIC Hx Endocrine Disorders: Yes Hx Diabetes Mellitus Type 2: Yes - HEMATOLOGICAL/ONCOLOGICAL Hx Blood Disorders: Yes Hx Anemia: Yes (IRON DEFICIENCY) Hx Blood Transfusions: No - INTEGUMENTARY Hx Dermatological Problems: No - MUSCULOSKELETAL/RHEUMATOLOGICAL Hx Musculoskeletal Disorders: Yes Hx Arthritis: Yes Hx Falls: Yes Hx Unsteady Gait: Yes (Secondary to CVA w/LTside affected) - GASTROINTESTINAL Hx Gastrointestinal Disorders: No - GENITOURINARY/GYNECOLOGICAL Hx Genitourinary Disorders: Yes - PSYCHIATRIC Hx Psychophysiologic Disorder: No Hx Substance Use: No - SURGICAL HISTORY Hx Surgeries: Yes Hx Carotid Endarterectomy: Yes (Rt side) Hx Cholecystectomy: Yes Hx Coronary Stent: Yes Hx Herniorrhaphy: Yes - ANESTHESIA Hx Anesthesia: Yes Hx Anesthesia Reactions: No Hx Malignant Hyperthermia: No Has any member of the family had a problem w/ anesthesia?: No Meds Allergies/Adverse Reactions: Allergies Allergy/AdvReac Type Severity Reaction Status Date / Time No Known Allergies Allergy Verified 10/16/18 12:08 - Medications Medications: Current Medications Amlodipine Besylate (Norvasc) 10 mg PO DAILY [facility] Last Admin: 10/18/18 11:03 Dose: 10 mg Carvedilol (Coreg) 12.5 mg PO BID [facility] Last Admin: 10/18/18 18:20 Dose: 12.5 mg Enoxaparin Sodium (Lovenox) 60 mg SC Q24H [facility] Last Admin: 10/18/18 05:24 Dose: 60 mg Famotidine (Pepcid) 20 mg PO DAILY [facility] Last Admin: 10/18/18 10:59 Dose: 20 mg Furosemide (Lasix) 40 mg PO DAILY [facility] Last Admin: 10/18/18 11:03 Dose: 40 mg Hydralazine HCl (Apresoline) 25 mg PO BID [facility] Last Admin: 10/18/18 18:20 Dose: 25 mg Cefazolin Sodium 1 gm/ Sodium (Chloride) 100 mls @ 100 mls/hr IVPB Q8H [facility]; Protocol Last Admin: 10/18/18 19:03 Dose: 100 mls/hr Insulin Aspart (Novolog) 1 unit SC ACHS [facility]; Protocol Last Admin: 10/18/18 16:31 Dose: Not Given Insulin Detemir (Levemir) 8 unit SC DAILY [facility] Last Admin: 10/18/18 10:59 Dose: 8 units Oxycodone/Acetaminophen (Percocet 5/325 Mg Tab) 1 tab PO Q6H PRN PRN Reason: Pain, moderate (4-7) Stop: 10/20/18 11:10 Last Admin: 10/18/18 12:24 Dose: 1 tab Rosuvastatin Calcium (Crestor) 20 mg PO HS [facility] Last Admin: 10/17/18 21:28 Dose: 20 mg Sitagliptin Phosphate (Januvia) 25 mg PO DAILY [facility] Last Admin: 10/18/18 10:59 Dose: 25 mg Results - Vital Signs Recent Vital Signs: Last Vital Signs Temp 97.8 F 10/18/18 15:42 Pulse 73 10/18/18 18:20 Resp 20 10/18/18 18:20 BP 142/73 10/18/18 18:20 Pulse Ox 98 10/18/18 15:42 - Labs Result Diagrams: 10/18/18 07:00 10/16/18 13:18 Labs: Laboratory Results - last 24 hr 10/17/18 10/18/18 10/18/18 20:59 06:23 07:00 WBC 9.9 RBC 3.12 L Hgb 7.6 L Hct 23.9 L MCV 76.5 L MCH 24.4 L MCHC 31.9 L RDW 15.3 H Plt Count 438 H D MPV 8.1 Neut % (Auto) 71.3 Lymph % (Auto) 15.1 L [place] % (Auto) 11.3 H Eos % (Auto) 1.7 Baso % (Auto) 0.6 Neut # (Auto) 7.1 H Lymph # (Auto) 1.5 [place] # (Auto) 1.1 H Eos # (Auto) 0.2 Baso # (Auto) 0.1 ESR 104 H Retic Count 1.5 POC Glucose (mg/dL) 231 H 144 H Ferritin Vitamin B12 10/18/18 10/18/18 10/18/18 07:00 10:58 16:13 WBC RBC Hgb Hct MCV MCH MCHC RDW Plt Count MPV Neut % (Auto) Lymph % (Auto) [place] % (Auto) Eos % (Auto) Baso % (Auto) Neut # (Auto) Lymph # (Auto) [place] # (Auto) Eos # (Auto) Baso # (Auto) ESR Retic Count POC Glucose (mg/dL) 301 H 140 H Ferritin 101.0 Vitamin B12 638 Assessment & Plan (1) Severe anemia Assessment and Plan: 68 yo man with severe, microcytic anemia, multifactorial- -Iron deficiency, ferritin elevated as an "acute phase reactant". ? Dilutional CKD. ?Occult GI losses Since the patient is symptomatic and the Hgb is significantly lower than his baseline(between 11and 12),and the patient's risk of bleeding is high on blood thinners, will order PRBC transfusion. Will need work up for this , when stable. -Thrombocytosis, likely reactive (elevated sed rate) and secondary to Iron deficiency. No further work up warranted at this time for the elevated platelet count. Status: Acute
[2018-10-19] MEDS: ceFAZolin 1 GM in Sodium Chloride 0.9% 100 ML IVPB SCH ×3 (04:06→21:19)
[2018-10-19] MEDS: Enoxaparin 60 mg Syringe SC SCH (06:28)
[2018-10-19] MEDS: (Novolog) Insulin Aspart, Recombinant 100 u/ml 10 ml vial SC SCH ×4 (07:37→22:00)
--- NOTE | 2018-10-19 07:55 | CP.PCM.PN ---
Subjective - Date & Time of Evaluation Date of Evaluation: 10/19/18 Time of Evaluation: 07:52 - Subjective Subjective: Pt w/ l knee pain and swollen compare to admission. No CP, no SOB, no cough, no n/v; on going transfusion Objective - Vital Signs/Intake and Output Vital Signs (last 24 hours): Temp Pulse Resp BP Pulse Ox 98.7 F 63 20 141/72 97 10/19/18 06:30 10/19/18 06:30 10/19/18 06:30 10/19/18 06:30 10/18/18 23:54 Intake and Output: 10/19/18 10/19/18 06:59 18:59 Intake Total 955 Output Total 800 Balance 155 - Medications Medications: Current Medications Acetaminophen (Tylenol 325mg Tab) 650 mg PO ONCE PRN PRN Reason: give before first unit of PRBC Last Admin: 10/19/18 05:34 Dose: 650 mg Acetaminophen (Tylenol 325mg Tab) 650 mg PO ONCE PRN PRN Reason: give before 2nd unit of PRBC Amlodipine Besylate (Norvasc) 10 mg PO DAILY [facility] Last Admin: 10/18/18 11:03 Dose: 10 mg Carvedilol (Coreg) 12.5 mg PO BID [facility] Last Admin: 10/18/18 18:20 Dose: 12.5 mg Enoxaparin Sodium (Lovenox) 60 mg SC Q24H [facility] Last Admin: 10/19/18 06:28 Dose: 60 mg Famotidine (Pepcid) 20 mg PO DAILY [facility] Last Admin: 10/18/18 10:59 Dose: 20 mg Furosemide (Lasix) 40 mg PO DAILY [facility] Last Admin: 10/18/18 11:03 Dose: 40 mg Hydralazine HCl (Apresoline) 25 mg PO BID [facility] Last Admin: 10/18/18 18:20 Dose: 25 mg Cefazolin Sodium 1 gm/ Sodium (Chloride) 100 mls @ 100 mls/hr IVPB Q8H [facility]; Protocol Last Admin: 10/19/18 04:06 Dose: 100 mls/hr Insulin Aspart (Novolog) 1 unit SC ACHS [facility]; Protocol Last Admin: 10/19/18 07:37 Dose: Not Given Insulin Detemir (Levemir) 8 unit SC DAILY [facility] Last Admin: 01/24/19 10:59 Dose: 8 units Oxycodone/Acetaminophen (Percocet 5/325 Mg Tab) 1 tab PO Q6H PRN PRN Reason: Pain, moderate (4-7) Stop: 10/20/18 11:10 Last Admin: 10/18/18 20:58 Dose: 1 tab Rosuvastatin Calcium (Crestor) 20 mg PO HS [facility] Last Admin: 10/18/18 21:01 Dose: 20 mg Sitagliptin Phosphate (Januvia) 25 mg PO DAILY [facility] Last Admin: 10/18/18 10:59 Dose: 25 mg - Labs Labs: 10/18/18 07:00 10/16/18 13:18 PT 12.1 SECONDS (9.7-12.2) 10/16/18 13:18 INR 1.1 10/16/18 13:18 APTT 34 SECONDS (21-34) 10/16/18 13:18 - Constitutional Appears: No Acute Distress - Eye Exam Eye Exam: Normal appearance - ENT Exam ENT Exam: Mucous Membranes Moist - Neck Exam Neck Exam: Full ROM. absent: Lymphadenopathy, Thyromegaly - Respiratory Exam Respiratory Exam: Clear to Ausculation Bilateral. absent: Rales, Rhonchi, Wheezes - Cardiovascular Exam Cardiovascular Exam: +S1, +S2. absent: Gallop, REGULAR RHYTHM, Murmur - GI/Abdominal Exam GI & Abdominal Exam: Soft. absent: Hyperactive Bowel Sounds, Pulsatile Mass - Extremities Exam Extremities Exam: Normal Capillary Refill. absent: Calf Tenderness, Joint Swelling Assessment and Plan - Assessment and Plan (Free Text) Assessment: L knee Effusion/ pain - likely Gout HTN, NIDDM, CKD, s/p CVA w/ L Hemiplegia Inc Platelet - reactive; L DVT Best to get Arthrocentesis and steroid Cont meds/ supportive care
[2018-10-19] MEDS: Insulin Detemir 100 units/ml Vial (Levemir) SC SCH (10:00)
[2018-10-19] MEDS: Oxycodone/Acetaminophen 5/325 mg Tab PO PRN (18:12)
--- NOTE | 2018-10-19 18:16 | CP.PCM.PN ---
Subjective - Date & Time of Evaluation Date of Evaluation: 10/19/18 Time of Evaluation: 18:12 - Subjective Subjective: S/P PRBC yesterday. The patient c/o pain in the left leg, not straightening it. Denies any other symptoms. Plan- Check labs in AM. Objective - Vital Signs/Intake and Output Vital Signs (last 24 hours): Temp Pulse Resp BP Pulse Ox 98 F 80 20 116/62 96 10/19/18 15:00 10/19/18 15:00 10/19/18 15:00 10/19/18 18:05 10/19/18 15:00 Intake and Output: 10/19/18 10/19/18 06:59 18:59 Intake Total 955 375 Output Total 800 Balance 155 375 - Medications Medications: Current Medications Acetaminophen (Tylenol 325mg Tab) 650 mg PO ONCE PRN PRN Reason: give before first unit of PRBC Last Admin: 10/19/18 05:34 Dose: 650 mg Acetaminophen (Tylenol 325mg Tab) 650 mg PO ONCE PRN PRN Reason: give before 2nd unit of PRBC Amlodipine Besylate (Norvasc) 10 mg PO DAILY [facility] Last Admin: 10/19/18 10:00 Dose: Not Given Carvedilol (Coreg) 12.5 mg PO BID [facility] Last Admin: 10/19/18 18:05 Dose: 12.5 mg Enoxaparin Sodium (Lovenox) 60 mg SC Q24H [facility] Last Admin: 10/19/18 06:28 Dose: 60 mg Famotidine (Pepcid) 20 mg PO DAILY [facility] Last Admin: 10/19/18 10:00 Dose: Not Given Furosemide (Lasix) 40 mg PO DAILY [facility] Last Admin: 10/19/18 10:00 Dose: Not Given Hydralazine HCl (Apresoline) 25 mg PO BID [facility] Last Admin: 10/19/18 10:00 Dose: Not Given Cefazolin Sodium 1 gm/ Sodium (Chloride) 100 mls @ 100 mls/hr IVPB Q8H [facility]; Protocol Last Admin: 10/19/18 12:01 Dose: 100 mls/hr Insulin Aspart (Novolog) 0 unit SC ACHS [facility]; Protocol Last Admin: 10/19/18 18:06 Dose: 2 u Insulin Detemir (Levemir) 8 unit SC DAILY [facility] Last Admin: 10/19/18 10:00 Dose: Not Given Oxycodone/Acetaminophen (Percocet 5/325 Mg Tab) 1 tab PO Q6H PRN PRN Reason: Pain, moderate (4-7) Stop: 10/20/18 11:10 Last Admin: 10/18/18 20:58 Dose: 1 tab Rosuvastatin Calcium (Crestor) 20 mg PO HS [facility] Last Admin: 10/18/18 21:01 Dose: 20 mg Sitagliptin Phosphate (Januvia) 25 mg PO DAILY [facility] Last Admin: 10/19/18 10:00 Dose: Not Given - Labs Labs: 10/18/18 07:00 10/16/18 13:18 PT 12.1 SECONDS (9.7-12.2) 10/16/18 13:18 INR 1.1 10/16/18 13:18 APTT 34 SECONDS (21-34) 10/16/18 13:18 Assessment and Plan (1) Severe anemia Status: Acute
--- NOTE | 2018-10-19 20:32 | CP.PCM.PN ---
Subjective - Date & Time of Evaluation Date of Evaluation: 10/19/18 Time of Evaluation: 07:00 - Subjective Subjective: events noted iv rx renewed Objective - Vital Signs/Intake and Output Vital Signs (last 24 hours): Temp Pulse Resp BP Pulse Ox 98 F 80 20 116/62 96 10/19/18 15:00 10/19/18 15:00 10/19/18 15:00 10/19/18 18:05 10/19/18 15:00 Intake and Output: 10/19/18 10/20/18 18:59 06:59 Intake Total 375 Balance 375 - Medications Medications: Current Medications Acetaminophen (Tylenol 325mg Tab) 650 mg PO ONCE PRN PRN Reason: give before first unit of PRBC Last Admin: 10/19/18 05:34 Dose: 650 mg Acetaminophen (Tylenol 325mg Tab) 650 mg PO ONCE PRN PRN Reason: give before 2nd unit of PRBC Amlodipine Besylate (Norvasc) 10 mg PO DAILY [facility] Last Admin: 10/19/18 10:00 Dose: Not Given Carvedilol (Coreg) 12.5 mg PO BID [facility] Last Admin: 10/19/18 18:05 Dose: 12.5 mg Enoxaparin Sodium (Lovenox) 60 mg SC Q24H [facility] Last Admin: 10/19/18 06:28 Dose: 60 mg Famotidine (Pepcid) 20 mg PO DAILY [facility] Last Admin: 10/19/18 10:00 Dose: Not Given Furosemide (Lasix) 40 mg PO DAILY [facility] Last Admin: 10/19/18 10:00 Dose: Not Given Hydralazine HCl (Apresoline) 25 mg PO BID [facility] Last Admin: 10/19/18 10:00 Dose: Not Given Cefazolin Sodium 1 gm/ Sodium (Chloride) 100 mls @ 100 mls/hr IVPB Q8H [facility]; Protocol Last Admin: 10/19/18 12:01 Dose: 100 mls/hr Insulin Aspart (Novolog) 0 unit SC ACHS [facility]; Protocol Last Admin: 10/19/18 18:06 Dose: 2 u Insulin Detemir (Levemir) 8 unit SC DAILY [facility] Last Admin: 10/19/18 10:00 Dose: Not Given Oxycodone/Acetaminophen (Percocet 5/325 Mg Tab) 1 tab PO Q6H PRN PRN Reason: Pain, moderate (4-7) Stop: 10/20/18 11:10 Last Admin: 10/19/18 18:12 Dose: 1 tab Rosuvastatin Calcium (Crestor) 20 mg PO HS [facility] Last Admin: 10/18/18 21:01 Dose: 20 mg Sitagliptin Phosphate (Januvia) 25 mg PO DAILY [facility] Last Admin: 10/19/18 10:00 Dose: Not Given - Labs Labs: 10/18/18 07:00 10/16/18 13:18 PT 12.1 SECONDS (9.7-12.2) 10/16/18 13:18 INR 1.1 10/16/18 13:18 APTT 34 SECONDS (21-34) 10/16/18 13:18 - Constitutional Appears: Non-toxic, Chronically Ill - Head Exam Head Exam: NORMOCEPHALIC - Eye Exam Eye Exam: absent: Scleral icterus - ENT Exam ENT Exam: Mucous Membranes Dry - Neck Exam Neck Exam: absent: Lymphadenopathy - Respiratory Exam Respiratory Exam: Decreased Breath Sounds - Cardiovascular Exam Cardiovascular Exam: REGULAR RHYTHM - GI/Abdominal Exam GI & Abdominal Exam: Distended - Rectal Exam Rectal Exam: Deferred - Exam Exam: NORMAL INSPECTION - Extremities Exam Extremities Exam: absent: Pedal Edema - Back Exam Back Exam: absent: CVA tenderness (L), CVA tenderness (R) - Neurological Exam Neurological Exam: Alert, Awake Neuro motor strength exam: Left Upper Extremity: 2/1, Right Upper Extremity: 4, Left Lower Extremity: 2/1, Right Lower Extremity: 4 - Psychiatric Exam Psychiatric exam: Depressed - Skin Skin Exam: Dry Assessment and Plan (1) Near syncope Status: Acute (2) Abnormal physical evaluation Status: Acute (3) Chest pain Status: Acute (4) Dehydration Status: Acute (5) Diabetes Status: Chronic (6) Elevated lipase Status: Acute (7) DVT of leg (deep venous thrombosis) Status: Acute (8) Syncope Status: Acute (9) Elevated CPK Status: Acute (10) Renal insufficiency Status: Acute (11) Weakness Status: Acute (12) Hypercholesteremia Status: Chronic
[2018-10-20] MEDS: ceFAZolin 1 GM in Sodium Chloride 0.9% 100 ML IVPB SCH ×3 (02:48→20:05)
[2018-10-20] MEDS: Enoxaparin 60 mg Syringe SC SCH (05:10)
--- NOTE | 2018-10-20 08:00 | CP.PCM.PN ---
Subjective - Date & Time of Evaluation Date of Evaluation: 10/20/17 Time of Evaluation: 07:57 - Subjective Subjective: Pt L knee pain is much better today; States mk dec pain No CP, no SOB, no edema, no cough Objective - Vital Signs/Intake and Output Vital Signs (last 24 hours): Temp Pulse Resp BP Pulse Ox 100 F H 77 20 155/76 H 98 10/19/18 23:40 10/20/18 07:31 10/19/18 23:40 10/19/18 23:40 10/19/18 23:40 Intake and Output: 10/20/18 10/20/18 06:59 18:59 Output Total 1999 Balance -1999 - Medications Medications: Current Medications Acetaminophen (Tylenol 325mg Tab) 650 mg PO ONCE PRN PRN Reason: give before first unit of PRBC Last Admin: 10/19/18 05:34 Dose: 650 mg Acetaminophen (Tylenol 325mg Tab) 650 mg PO ONCE PRN PRN Reason: give before 2nd unit of PRBC Amlodipine Besylate (Norvasc) 10 mg PO DAILY [facility] Last Admin: 10/19/18 10:00 Dose: Not Given Carvedilol (Coreg) 12.5 mg PO BID [facility] Last Admin: 10/19/18 18:05 Dose: 12.5 mg Enoxaparin Sodium (Lovenox) 60 mg SC Q24H [facility] Last Admin: 10/20/18 05:10 Dose: 60 mg Famotidine (Pepcid) 20 mg PO DAILY [facility] Last Admin: 10/19/18 10:00 Dose: Not Given Furosemide (Lasix) 40 mg PO DAILY [facility] Last Admin: 10/19/18 10:00 Dose: Not Given Hydralazine HCl (Apresoline) 25 mg PO BID [facility] Last Admin: 10/19/18 21:20 Dose: 25 mg Cefazolin Sodium 1 gm/ Sodium (Chloride) 100 mls @ 100 mls/hr IVPB Q8H [facility]; Protocol Last Admin: 10/20/18 02:48 Dose: 100 mls/hr Insulin Aspart (Novolog) 0 unit SC ACHS [facility]; Protocol Last Admin: 10/19/18 22:00 Dose: Not Given Insulin Detemir (Levemir) 8 unit SC DAILY [facility] Last Admin: 10/19/18 10:00 Dose: Not Given Oxycodone/Acetaminophen (Percocet 5/325 Mg Tab) 1 tab PO Q6H PRN PRN Reason: Pain, moderate (4-7) Stop: 10/20/18 11:10 Last Admin: 10/19/18 18:12 Dose: 1 tab Rosuvastatin Calcium (Crestor) 20 mg PO HS [facility] Last Admin: 10/19/18 21:21 Dose: 20 mg Sitagliptin Phosphate (Januvia) 25 mg PO DAILY [facility] Last Admin: 10/19/18 10:00 Dose: Not Given - Labs Labs: 10/18/18 07:00 10/16/18 13:18 PT 12.1 SECONDS (9.7-12.2) 10/16/18 13:18 INR 1.1 10/16/18 13:18 APTT 34 SECONDS (21-34) 10/16/18 13:18 - Constitutional Appears: No Acute Distress - Eye Exam Eye Exam: Normal appearance - ENT Exam ENT Exam: Mucous Membranes Moist - Neck Exam Neck Exam: Full ROM. absent: Lymphadenopathy, Normal Inspection - Respiratory Exam Respiratory Exam: Decreased Breath Sounds. absent: Rhonchi, Wheezes - Cardiovascular Exam Cardiovascular Exam: REGULAR RHYTHM, +S1, +S2. absent: Gallop, JVD - GI/Abdominal Exam GI & Abdominal Exam: Soft. absent: Tenderness - Extremities Exam Extremities Exam: Full ROM. absent: Calf Tenderness, Joint Swelling, Normal Capillary Refill Assessment and Plan - Assessment and Plan (Free Text) Assessment: L leg DVT; Infected L knee/ leg wound w/ early Cellulitis NIDDM, HTN, L Hemiplegia Cont meds/ supportive care
[2018-10-20] MEDS: (Novolog) Insulin Aspart, Recombinant 100 u/ml 10 ml vial SC SCH ×4 (08:09→21:07)
[2018-10-20 08:35] LABS: BASO # 0.1 K/uL (0.0-0.2); BASO % 0.5 % (0.0-2.0); EOS # 0.1 K/uL (0.0-0.7); EOS % 1.1 % (0.0-4.0); LYMPH # 1.3 K/uL (1.0-4.3); LYMPH % 10.9 % (20.0-40.0); MEAN CORPUSCULAR HEMOGLOBIN 26.5 pg (27.0-31.0); MEAN CORPUSCULAR HGB CONC 33.2 g/dL (33.0-37.0); MEAN PLATELET VOLUME 8.6 fL (7.2-11.7); MONO # 1.2 K/uL (0.0-0.8); MONO % 9.4 % (0.0-10.0); NEUT # 9.6 K/uL (1.8-7.0); NEUT % 78.1 % (50.0-75.0); RBC 3.9 Mil/uL (4.40-5.90); WHITE BLOOD COUNT 12.3 K/uL (4.8-10.8)
[2018-10-20 08:36] LABS: HEMOGLOBIN 10.3 g/dL (12.0-18.0); MEAN CELL VOLUME 79.8 fL (80.0-94.0)
[2018-10-20 09:10] LABS: ALB/GLOB RATIO 1.2 (1.0-2.1); ALBUMIN 2.7 g/dL (3.5-5.0); CALCIUM 7.2 mg/dl (8.6-10.4)
[2018-10-20] MEDS: Insulin Detemir 100 units/ml Vial (Levemir) SC SCH (09:38)
[2018-10-20] MEDS: Magnesium Hydroxide Susp 30 ml UD PO ONE ×2 (21:00→21:10)
[2018-10-20] MEDS: Oxycodone/Acetaminophen 5/325 mg Tab PO PRN (21:08)
[2018-10-21] MEDS: ceFAZolin 1 GM in Sodium Chloride 0.9% 100 ML IVPB SCH ×3 (02:40→19:48)
[2018-10-21] MEDS: Enoxaparin 60 mg Syringe SC SCH (06:46)
[2018-10-21] MEDS: (Novolog) Insulin Aspart, Recombinant 100 u/ml 10 ml vial SC SCH ×4 (08:11→21:24)
[2018-10-21] MEDS: Insulin Detemir 100 units/ml Vial (Levemir) SC SCH (10:04)
[2018-10-21] MEDS: POLYETHYLENE GLYCOL 3350 17 GM/Dose PACKET PO SCH (10:04)
--- NOTE | 2018-10-21 11:16 | CP.PCM.PN ---
Subjective - Date & Time of Evaluation Date of Evaluation: 10/21/18 Time of Evaluation: 11:14 - Subjective Subjective: S: Awake. Bedridden. No obvious GI bleed. Hg 10 after blood transfusion Objective - Vital Signs/Intake and Output Vital Signs (last 24 hours): Temp Pulse Resp BP Pulse Ox 98.2 F 73 20 135/72 94 L 10/21/18 09:15 10/21/18 09:15 10/21/18 09:15 10/21/18 10:04 10/21/18 09:15 - Medications Medications: Current Medications Acetaminophen (Tylenol 325mg Tab) 650 mg PO ONCE PRN PRN Reason: give before first unit of PRBC Last Admin: 10/19/18 05:34 Dose: 650 mg Acetaminophen (Tylenol 325mg Tab) 650 mg PO ONCE PRN PRN Reason: give before 2nd unit of PRBC Amlodipine Besylate (Norvasc) 10 mg PO DAILY [facility] Last Admin: 10/21/18 10:04 Dose: 10 mg Carvedilol (Coreg) 12.5 mg PO BID [facility] Last Admin: 10/21/18 10:04 Dose: 12.5 mg Enoxaparin Sodium (Lovenox) 60 mg SC Q24H [facility] Last Admin: 10/21/18 06:46 Dose: 60 mg Famotidine (Pepcid) 20 mg PO DAILY [facility] Last Admin: 10/21/18 10:04 Dose: 20 mg Furosemide (Lasix) 40 mg PO DAILY [facility] Last Admin: 10/21/18 10:04 Dose: 40 mg Hydralazine HCl (Apresoline) 25 mg PO BID [facility] Last Admin: 10/21/18 10:04 Dose: 25 mg Cefazolin Sodium 1 gm/ Sodium (Chloride) 100 mls @ 100 mls/hr IVPB Q8H [facility]; Protocol Last Admin: 10/21/18 02:40 Dose: 100 mls/hr Insulin Aspart (Novolog) 0 unit SC ACHS [facility]; Protocol Last Admin: 10/21/18 08:11 Dose: 2 u Insulin Detemir (Levemir) 8 unit SC DAILY [facility] Last Admin: 10/21/18 10:04 Dose: 8 units Oxycodone/Acetaminophen (Percocet 5/325 Mg Tab) 1 tab PO Q6H PRN PRN Reason: pain Stop: 10/23/18 20:38 Last Admin: 10/20/18 21:08 Dose: 1 tab Polyethylene Glycol (Miralax) 17 gm PO DAILY [facility] Last Admin: 10/21/18 10:04 Dose: 17 gm Rosuvastatin Calcium (Crestor) 20 mg PO HS [facility] Last Admin: 10/20/18 21:11 Dose: 20 mg Sitagliptin Phosphate (Januvia) 25 mg PO DAILY [facility] Last Admin: 10/21/18 10:04 Dose: 25 mg - Labs Labs: 10/20/18 08:24 10/20/18 08:24 PT 12.1 SECONDS (9.7-12.2) 10/16/18 13:18 INR 1.1 10/16/18 13:18 APTT 34 SECONDS (21-34) 10/16/18 13:18 - Constitutional Appears: Chronically Ill - Head Exam Head Exam: NORMAL INSPECTION - Eye Exam Eye Exam: Normal appearance - ENT Exam ENT Exam: Normal Exam - Neck Exam Neck Exam: Normal Inspection - Respiratory Exam Respiratory Exam: NORMAL BREATHING PATTERN - Cardiovascular Exam Cardiovascular Exam: REGULAR RHYTHM - GI/Abdominal Exam GI & Abdominal Exam: Soft - Rectal Exam Rectal Exam: Deferred - Neurological Exam Neurological Exam: Awake (weakness and atrophy extremities noted) - Skin Skin Exam: Dry Assessment and Plan (1) Near syncope Status: Acute (2) Diabetes Status: Chronic (3) Status post CVA Status: Chronic (4) DVT of lower limb, acute Status: Acute
--- NOTE | 2018-10-21 16:46 | CP.PCM.PN ---
Subjective - Date & Time of Evaluation Date of Evaluation: 10/21/18 Time of Evaluation: 08:00 - Subjective Subjective: left foot and ankle swolllen may have fracture x ray ordered Objective - Vital Signs/Intake and Output Vital Signs (last 24 hours): Temp Pulse Resp BP Pulse Ox 98.2 F 73 20 135/72 94 L 10/21/18 09:15 10/21/18 09:15 10/21/18 09:15 10/21/18 10:04 10/21/18 09:15 - Medications Medications: Current Medications Acetaminophen (Tylenol 325mg Tab) 650 mg PO ONCE PRN PRN Reason: give before first unit of PRBC Last Admin: 10/19/18 05:34 Dose: 650 mg Acetaminophen (Tylenol 325mg Tab) 650 mg PO ONCE PRN PRN Reason: give before 2nd unit of PRBC Amlodipine Besylate (Norvasc) 10 mg PO DAILY [facility] Last Admin: 10/21/18 10:04 Dose: 10 mg Carvedilol (Coreg) 12.5 mg PO BID [facility] Last Admin: 10/21/18 10:04 Dose: 12.5 mg Enoxaparin Sodium (Lovenox) 60 mg SC Q24H [facility] Last Admin: 10/21/18 06:46 Dose: 60 mg Famotidine (Pepcid) 20 mg PO DAILY [facility] Last Admin: 10/21/18 10:04 Dose: 20 mg Furosemide (Lasix) 40 mg PO DAILY [facility] Last Admin: 10/21/18 10:04 Dose: 40 mg Hydralazine HCl (Apresoline) 25 mg PO BID [facility] Last Admin: 10/21/18 10:04 Dose: 25 mg Cefazolin Sodium 1 gm/ Sodium (Chloride) 100 mls @ 100 mls/hr IVPB Q8H [facility]; Protocol Last Admin: 10/21/18 12:14 Dose: 100 mls/hr Insulin Aspart (Novolog) 0 unit SC ACHS [facility]; Protocol Last Admin: 10/21/18 12:14 Dose: 5 u Insulin Detemir (Levemir) 8 unit SC DAILY [facility] Last Admin: 10/21/18 10:04 Dose: 8 units Oxycodone/Acetaminophen (Percocet 5/325 Mg Tab) 1 tab PO Q6H PRN PRN Reason: pain Stop: 10/23/18 20:38 Last Admin: 10/20/18 21:08 Dose: 1 tab Polyethylene Glycol (Miralax) 17 gm PO DAILY [facility] Last Admin: 10/21/18 10:04 Dose: 17 gm Rosuvastatin Calcium (Crestor) 20 mg PO HS [facility] Last Admin: 10/20/18 21:11 Dose: 20 mg Sitagliptin Phosphate (Januvia) 25 mg PO DAILY [facility] Last Admin: 10/21/18 10:04 Dose: 25 mg - Labs Labs: 10/20/18 08:24 10/20/18 08:24 PT 12.1 SECONDS (9.7-12.2) 10/16/18 13:18 INR 1.1 10/16/18 13:18 APTT 34 SECONDS (21-34) 10/16/18 13:18 - Constitutional Appears: Well - Head Exam Head Exam: ATRAUMATIC, NORMAL INSPECTION, NORMOCEPHALIC - Eye Exam Eye Exam: EOMI, Normal appearance, PERRL Pupil Exam: NORMAL ACCOMODATION, PERRL - ENT Exam ENT Exam: Mucous Membranes Moist, Normal Exam - Neck Exam Neck Exam: Full ROM, Normal Inspection. absent: Lymphadenopathy - Respiratory Exam Respiratory Exam: Clear to Ausculation Bilateral, NORMAL BREATHING PATTERN - Cardiovascular Exam Cardiovascular Exam: REGULAR RHYTHM, +S1, +S2. absent: Murmur - GI/Abdominal Exam GI & Abdominal Exam: Soft, Normal Bowel Sounds. absent: Tenderness - Rectal Exam Rectal Exam: NORMAL INSPECTION - Extremities Exam Extremities Exam: Full ROM, Normal Capillary Refill, Normal Inspection. absent: Joint Swelling, Pedal Edema - Back Exam Back Exam: NORMAL INSPECTION - Neurological Exam Neurological Exam: Alert, Awake, CN II-XII Intact, Oriented x3. absent: Normal Gait Neuro motor strength exam: Left Upper Extremity: 2/1, Right Upper Extremity: 4, Left Lower Extremity: 2/1, Right Lower Extremity: 4 - Psychiatric Exam Psychiatric exam: Normal Affect, Normal Mood - Skin Skin Exam: Dry, Intact, Normal Color, Warm Assessment and Plan (1) Near syncope Status: Acute (2) Abnormal physical evaluation Status: Acute (3) Chest pain Status: Acute (4) Dehydration Status: Acute (5) Diabetes Status: Chronic (6) Elevated lipase Status: Acute (7) DVT of leg (deep venous thrombosis) Status: Acute (8) Syncope Status: Acute (9) Elevated CPK Status: Acute (10) Renal insufficiency Status: Acute (11) Weakness Status: Acute (12) Hypercholesteremia Status: Chronic - Assessment and Plan (Free Text) Assessment: consider ortho eval
--- NOTE | 2018-10-21 18:51 | CP.PCM.PN ---
Subjective - Date & Time of Evaluation Date of Evaluation: 10/18/18 Time of Evaluation: 10:00 - Subjective Subjective: no chest pain no sob +severe anemia Objective - Vital Signs/Intake and Output Vital Signs (last 24 hours): Temp Pulse Resp BP Pulse Ox 98.1 F 79 20 140/66 97 10/21/18 15:25 10/21/18 15:25 10/21/18 15:25 10/21/18 17:59 10/21/18 15:25 - Medications Medications: Current Medications Acetaminophen (Tylenol 325mg Tab) 650 mg PO ONCE PRN PRN Reason: give before first unit of PRBC Last Admin: 10/19/18 05:34 Dose: 650 mg Acetaminophen (Tylenol 325mg Tab) 650 mg PO ONCE PRN PRN Reason: give before 2nd unit of PRBC Amlodipine Besylate (Norvasc) 10 mg PO DAILY [facility] Last Admin: 10/21/18 10:04 Dose: 10 mg Carvedilol (Coreg) 12.5 mg PO BID [facility] Last Admin: 10/21/18 17:59 Dose: 12.5 mg Enoxaparin Sodium (Lovenox) 60 mg SC Q24H [facility] Last Admin: 10/21/18 06:46 Dose: 60 mg Famotidine (Pepcid) 20 mg PO DAILY [facility] Last Admin: 10/21/18 10:04 Dose: 20 mg Furosemide (Lasix) 40 mg PO DAILY [facility] Last Admin: 10/21/18 10:04 Dose: 40 mg Hydralazine HCl (Apresoline) 25 mg PO BID [facility] Last Admin: 10/21/18 17:58 Dose: 25 mg Cefazolin Sodium 1 gm/ Sodium (Chloride) 100 mls @ 100 mls/hr IVPB Q8H [facility]; Protocol Last Admin: 10/21/18 12:14 Dose: 100 mls/hr Insulin Aspart (Novolog) 0 unit SC ACHS [facility]; Protocol Last Admin: 10/21/18 18:00 Dose: 3 u Insulin Detemir (Levemir) 8 unit SC DAILY [facility] Last Admin: 10/21/18 10:04 Dose: 8 units Oxycodone/Acetaminophen (Percocet 5/325 Mg Tab) 1 tab PO Q6H PRN PRN Reason: pain Stop: 10/23/18 20:38 Last Admin: 10/20/18 21:08 Dose: 1 tab Polyethylene Glycol (Miralax) 17 gm PO DAILY [facility] Last Admin: 10/21/18 10:04 Dose: 17 gm Rosuvastatin Calcium (Crestor) 20 mg PO HS [facility] Last Admin: 10/20/18 21:11 Dose: 20 mg Sitagliptin Phosphate (Januvia) 25 mg PO DAILY [facility] Last Admin: 10/21/18 10:04 Dose: 25 mg - Labs Labs: 10/20/18 08:24 10/20/18 08:24 PT 12.1 SECONDS (9.7-12.2) 10/16/18 13:18 INR 1.1 10/16/18 13:18 APTT 34 SECONDS (21-34) 10/16/18 13:18 - Constitutional Appears: Non-toxic - Head Exam Head Exam: NORMAL INSPECTION - Eye Exam Eye Exam: absent: Scleral icterus - ENT Exam ENT Exam: Mucous Membranes Moist - Neck Exam Neck Exam: Full ROM - Respiratory Exam Respiratory Exam: Decreased Breath Sounds - GI/Abdominal Exam GI & Abdominal Exam: Soft. absent: Tenderness - Extremities Exam Additional comments: Contracted Assessment and Plan - Assessment and Plan (Free Text) Assessment: Near syncope Severe anemia Plan: ECHO Lexiscan Correct severe anemia
--- NOTE | 2018-10-21 18:58 | CP.PCM.PN ---
Subjective - Date & Time of Evaluation Date of Evaluation: 10/19/18 Time of Evaluation: 08:00 - Subjective Subjective: Lexiscan cancelled due to contracted left extremities no further near syncope Heme on case and ID Objective - Vital Signs/Intake and Output Vital Signs (last 24 hours): Temp Pulse Resp BP Pulse Ox 98.1 F 79 20 140/66 97 10/21/18 15:25 10/21/18 15:25 10/21/18 15:25 10/21/18 17:59 10/21/18 15:25 - Medications Medications: Current Medications Acetaminophen (Tylenol 325mg Tab) 650 mg PO ONCE PRN PRN Reason: give before first unit of PRBC Last Admin: 10/19/18 05:34 Dose: 650 mg Acetaminophen (Tylenol 325mg Tab) 650 mg PO ONCE PRN PRN Reason: give before 2nd unit of PRBC Amlodipine Besylate (Norvasc) 10 mg PO DAILY [facility] Last Admin: 10/21/18 10:04 Dose: 10 mg Carvedilol (Coreg) 12.5 mg PO BID [facility] Last Admin: 10/21/18 17:59 Dose: 12.5 mg Enoxaparin Sodium (Lovenox) 60 mg SC Q24H [facility] Last Admin: 10/21/18 06:46 Dose: 60 mg Famotidine (Pepcid) 20 mg PO DAILY [facility] Last Admin: 10/21/18 10:04 Dose: 20 mg Furosemide (Lasix) 40 mg PO DAILY [facility] Last Admin: 10/21/18 10:04 Dose: 40 mg Hydralazine HCl (Apresoline) 25 mg PO BID [facility] Last Admin: 10/21/18 17:58 Dose: 25 mg Cefazolin Sodium 1 gm/ Sodium (Chloride) 100 mls @ 100 mls/hr IVPB Q8H [facility]; Protocol Last Admin: 10/21/18 12:14 Dose: 100 mls/hr Insulin Aspart (Novolog) 0 unit SC ACHS [facility]; Protocol Last Admin: 10/21/18 18:00 Dose: 3 u Insulin Detemir (Levemir) 8 unit SC DAILY [facility] Last Admin: 10/21/18 10:04 Dose: 8 units Oxycodone/Acetaminophen (Percocet 5/325 Mg Tab) 1 tab PO Q6H PRN PRN Reason: pain Stop: 10/23/18 20:38 Last Admin: 10/20/18 21:08 Dose: 1 tab Polyethylene Glycol (Miralax) 17 gm PO DAILY [facility] Last Admin: 10/21/18 10:04 Dose: 17 gm Rosuvastatin Calcium (Crestor) 20 mg PO HS [facility] Last Admin: 10/20/18 21:11 Dose: 20 mg Sitagliptin Phosphate (Januvia) 25 mg PO DAILY [facility] Last Admin: 10/21/18 10:04 Dose: 25 mg - Labs Labs: 10/20/18 08:24 10/20/18 08:24 PT 12.1 SECONDS (9.7-12.2) 10/16/18 13:18 INR 1.1 10/16/18 13:18 APTT 34 SECONDS (21-34) 10/16/18 13:18 - Constitutional Appears: Non-toxic - Head Exam Head Exam: NORMAL INSPECTION - Eye Exam Eye Exam: absent: Scleral icterus - ENT Exam ENT Exam: Mucous Membranes Moist - Neck Exam Neck Exam: Full ROM - Respiratory Exam Respiratory Exam: Decreased Breath Sounds - Cardiovascular Exam Cardiovascular Exam: REGULAR RHYTHM - GI/Abdominal Exam GI & Abdominal Exam: Soft. absent: Tenderness - Extremities Exam Extremities Exam: absent: Pedal Edema Additional comments: contracted LUE and LLE - Neurological Exam Neurological Exam: Alert, Oriented x3 Neuro motor strength exam: Left Upper Extremity: 2/1, Right Upper Extremity: 4, Left Lower Extremity: 2/1, Right Lower Extremity: 4 Assessment and Plan - Assessment and Plan (Free Text) Assessment: Near syncope Anemia Plan: Cancel Lexiscan and TILT Table test Treat medically
--- NOTE | 2018-10-21 19:04 | CP.PCM.PN ---
Subjective - Date & Time of Evaluation Date of Evaluation: 10/21/18 Time of Evaluation: 08:30 - Subjective Subjective: no chest pain no sob ECHO - nL LV syst fxn; +diastolic fxn; mild pulm htn; no valvular stenosis Objective - Vital Signs/Intake and Output Vital Signs (last 24 hours): Temp Pulse Resp BP Pulse Ox 98.1 F 79 20 140/66 97 10/21/18 15:25 10/21/18 15:25 10/21/18 15:25 10/21/18 17:59 10/21/18 15:25 - Medications Medications: Current Medications Acetaminophen (Tylenol 325mg Tab) 650 mg PO ONCE PRN PRN Reason: give before first unit of PRBC Last Admin: 10/19/18 05:34 Dose: 650 mg Acetaminophen (Tylenol 325mg Tab) 650 mg PO ONCE PRN PRN Reason: give before 2nd unit of PRBC Amlodipine Besylate (Norvasc) 10 mg PO DAILY REPLACED BY [facility] Last Admin: 10/21/18 10:04 Dose: 10 mg Carvedilol (Coreg) 12.5 mg PO BID REPLACED BY [facility] Last Admin: 10/21/18 17:59 Dose: 12.5 mg Enoxaparin Sodium (Lovenox) 60 mg SC Q24H REPLACED BY [facility] Last Admin: 10/21/18 06:46 Dose: 60 mg Famotidine (Pepcid) 20 mg PO DAILY [facility] BY [facility] Last Admin: 10/21/18 10:04 Dose: 20 mg Furosemide (Lasix) 40 mg PO DAILY [facility] Last Admin: 10/21/18 10:04 Dose: 40 mg Hydralazine HCl (Apresoline) 25 mg PO BID REPLACED BY [facility] Last Admin: 10/21/18 17:58 Dose: 25 mg Cefazolin Sodium 1 gm/ Sodium (Chloride) 100 mls @ 100 mls/hr IVPB Q8H REPLACED BY [facility]; Protocol Last Admin: 10/21/18 12:14 Dose: 100 mls/hr Insulin Aspart (Novolog) 0 unit SC ACHS REPLACED BY [facility]; Protocol Last Admin: 10/21/18 18:00 Dose: 3 u Insulin Detemir (Levemir) 8 unit SC DAILY REPLACED BY [facility] Last Admin: 10/21/18 10:04 Dose: 8 units Oxycodone/Acetaminophen (Percocet 5/325 Mg Tab) 1 tab PO Q6H PRN PRN Reason: pain Stop: 10/23/18 20:38 Last Admin: 10/20/18 21:08 Dose: 1 tab Polyethylene Glycol (Miralax) 17 gm PO DAILY REPLACED BY [facility] Last Admin: 10/21/18 10:04 Dose: 17 gm Rosuvastatin Calcium (Crestor) 20 mg PO HS REPLACED BY [facility] Last Admin: 10/20/18 21:11 Dose: 20 mg Sitagliptin Phosphate (Januvia) 25 mg PO DAILY [facility] Last Admin: 10/21/18 10:04 Dose: 25 mg - Labs Labs: 10/20/18 08:24 10/20/18 08:24 PT 12.1 SECONDS (9.7-12.2) 10/16/18 13:18 INR 1.1 10/16/18 13:18 APTT 34 SECONDS (21-34) 10/16/18 13:18 - Constitutional Appears: Non-toxic - Head Exam Head Exam: NORMAL INSPECTION - Eye Exam Eye Exam: absent: Scleral icterus - ENT Exam ENT Exam: Mucous Membranes Moist - Neck Exam Neck Exam: Full ROM - Respiratory Exam Respiratory Exam: Decreased Breath Sounds - GI/Abdominal Exam GI & Abdominal Exam: Soft - Extremities Exam Extremities Exam: absent: Pedal Edema - Neurological Exam Neurological Exam: Alert, Oriented x3 Assessment and Plan - Assessment and Plan (Free Text) Assessment: Near syncope Anemia CKD Plan: Cont work up
[2018-10-22] MEDS: ceFAZolin 1 GM in Sodium Chloride 0.9% 100 ML IVPB SCH ×3 (04:08→19:31)
[2018-10-22] MEDS: Oxycodone/Acetaminophen 5/325 mg Tab PO PRN (04:15)
[2018-10-22] MEDS: Enoxaparin 60 mg Syringe SC SCH (05:53)
[2018-10-22] MEDS: (Novolog) Insulin Aspart, Recombinant 100 u/ml 10 ml vial SC SCH ×4 (08:01→22:37)
--- NOTE | 2018-10-22 08:43 | CP.PCM.PN ---
Subjective - Date & Time of Evaluation Date of Evaluation: 10/22/18 Time of Evaluation: 08:25 - Subjective Subjective: Pt still a lot of L leg pain, throbbing. (+) edema persistent; no CP, no SOB, no cough, no n/v, no diarrhea Objective - Vital Signs/Intake and Output Vital Signs (last 24 hours): Temp Pulse Resp BP Pulse Ox 98.3 F 67 20 137/67 94 L 10/22/18 07:30 10/22/18 07:30 10/22/18 07:30 10/22/18 07:30 10/22/18 07:30 Intake and Output: 10/22/18 10/22/18 06:59 18:59 Output Total 900 Balance -900 - Medications Medications: Current Medications Acetaminophen (Tylenol 325mg Tab) 650 mg PO ONCE PRN PRN Reason: give before first unit of PRBC Last Admin: 10/19/18 05:34 Dose: 650 mg Acetaminophen (Tylenol 325mg Tab) 650 mg PO ONCE PRN PRN Reason: give before 2nd unit of PRBC Amlodipine Besylate (Norvasc) [address] [facility] Last Admin: 10/21/18 10:04 Dose: 10 mg Carvedilol (Coreg) 12.[address] [facility] Last Admin: 10/21/18 17:59 Dose: 12.5 mg Enoxaparin Sodium (Lovenox) [address] [facility] Last Admin: 10/22/18 05:53 Dose: 60 mg Famotidine (Pepcid) [address] [facility] Last Admin: 10/21/18 10:04 Dose: 20 mg Furosemide (Lasix) [address] [facility] Last Admin: 10/21/18 10:04 Dose: 40 mg Hydralazine HCl (Apresoline) [address] [facility] Last Admin: 10/21/18 17:58 Dose: 25 mg Cefazolin Sodium 1 gm/ Sodium (Chloride) 100 mls @ 100 mls/hr IVPB Q8H [facility]; [facility] Last Admin: 10/22/18 04:08 Dose: 100 mls/hr Insulin Aspart (Novolog) [address] [facility]; Protocol Last Admin: 10/22/18 08:01 Dose: 3 units Insulin Detemir (Levemir) [address] [facility] Last Admin: 10/21/18 10:04 Dose: 8 units Oxycodone/Acetaminophen (Percocet 5/325 Mg Tab) 1 tab PO Q6H PRN PRN Reason: pain Stop: 10/23/18 20:38 Last Admin: 10/22/18 04:15 Dose: 1 tab Polyethylene Glycol (Miralax) [address] [facility] Last Admin: 10/21/18 10:04 Dose: 17 gm Rosuvastatin Calcium (Crestor) [address] [facility] Last Admin: 10/21/18 21:27 Dose: 20 mg Sitagliptin Phosphate (Januvia) [address] [facility] Last Admin: 10/21/18 10:04 Dose: 25 mg - Labs Labs: 10/20/18 08:24 10/20/18 08:24 PT 12.1 SECONDS (9.7-12.2) 10/16/18 13:18 INR 1.1 10/16/18 13:18 APTT 34 SECONDS (21-34) 10/16/18 13:18 - Constitutional Appears: No Acute Distress - Eye Exam Eye Exam: Normal appearance - ENT Exam ENT Exam: Mucous Membranes Moist - Neck Exam Neck Exam: Full ROM. absent: Lymphadenopathy, Normal Inspection - Respiratory Exam Respiratory Exam: Clear to Ausculation Bilateral. absent: Rales, Rhonchi, Wheezes - Cardiovascular Exam Cardiovascular Exam: REGULAR RHYTHM, +S1, +S2. absent: Gallop, JVD, Murmur - GI/Abdominal Exam GI & Abdominal Exam: Soft. absent: Tenderness - Extremities Exam Extremities Exam: Calf Tenderness, Normal Capillary Refill, Pedal Edema. absent: Full ROM, Joint Swelling Assessment and Plan - Assessment and Plan (Free Text) Assessment: L DVT; L knee/ leg infexted wound - improve HTN, CKD; Hyponatremia ? palce on NOAC Recheck labs c/o low Na Cont meds/ supportive care
[2018-10-22] MEDS: Insulin Detemir 100 units/ml Vial (Levemir) SC SCH (09:51)
[2018-10-22] MEDS: POLYETHYLENE GLYCOL 3350 17 GM/Dose PACKET PO SCH (09:51)
[2018-10-22 11:26] LABS: HEMOGLOBIN 9.9 g/dL (12.0-18.0); MEAN CELL VOLUME 80.4 fL (80.0-94.0); MEAN CORPUSCULAR HEMOGLOBIN 26.1 pg (27.0-31.0); MEAN CORPUSCULAR HGB CONC 32.5 g/dL (33.0-37.0); MEAN PLATELET VOLUME 8.9 fL (7.2-11.7); RBC 3.81 Mil/uL (4.40-5.90); WHITE BLOOD COUNT 9.3 K/uL (4.8-10.8)
[2018-10-22 11:46] LABS: ALB/GLOB RATIO 0.9 (1.0-2.1); ALBUMIN 2.8 g/dL (3.5-5.0)
--- NOTE | 2018-10-22 12:09 | CP.PCM.PN ---
Subjective - Date & Time of Evaluation Date of Evaluation: 10/22/18 Time of Evaluation: 09:00 - Subjective Subjective: L DVT; L knee/ leg infexted wound - improve c/o pain left foot Objective - Vital Signs/Intake and Output Vital Signs (last 24 hours): Temp Pulse Resp BP Pulse Ox 98.3 F 67 20 137/67 94 L 10/22/18 07:30 10/22/18 08:00 10/22/18 07:30 10/22/18 09:52 10/22/18 07:30 Intake and Output: 10/22/18 10/22/18 06:59 18:59 Output Total 900 Balance -900 - Medications Medications: Current Medications Acetaminophen (Tylenol 325mg Tab) 650 mg PO ONCE PRN PRN Reason: give before first unit of PRBC Last Admin: 10/19/18 05:34 Dose: 650 mg Acetaminophen (Tylenol 325mg Tab) 650 mg PO ONCE PRN PRN Reason: give before 2nd unit of PRBC Amlodipine Besylate (Norvasc) 10 mg PO DAILY [facility] Last Admin: 10/22/18 09:50 Dose: 10 mg Carvedilol (Coreg) 12.5 mg PO BID [facility] Last Admin: 10/22/18 09:52 Dose: 12.5 mg Enoxaparin Sodium (Lovenox) 60 mg SC Q24H [facility] Last Admin: 10/22/18 05:53 Dose: 60 mg Famotidine (Pepcid) 20 mg PO DAILY [facility] Last Admin: 10/22/18 09:51 Dose: 20 mg Furosemide (Lasix) 40 mg PO DAILY [facility] Last Admin: 10/22/18 09:51 Dose: 40 mg Hydralazine HCl (Apresoline) 25 mg PO BID [facility] Last Admin: 10/22/18 09:50 Dose: 25 mg Cefazolin Sodium 1 gm/ Sodium (Chloride) 100 mls @ 100 mls/hr IVPB Q8H [facility]; Protocol Last Admin: 10/22/18 11:05 Dose: 100 mls/hr Insulin Aspart (Novolog) 0 unit SC ACHS [facility]; Protocol Last Admin: 10/22/18 11:34 Dose: 5 units Insulin Detemir (Levemir) 8 unit SC DAILY [facility] Last Admin: 10/22/18 09:51 Dose: 8 units Oxycodone/Acetaminophen (Percocet 5/325 Mg Tab) 1 tab PO Q6H PRN PRN Reason: pain Stop: 10/23/18 20:38 Last Admin: 10/22/18 04:15 Dose: 1 tab Polyethylene Glycol (Miralax) 17 gm PO DAILY [facility] Last Admin: 10/22/18 09:51 Dose: 17 gm Rosuvastatin Calcium (Crestor) 20 mg PO HS [facility] Last Admin: 10/21/18 21:27 Dose: 20 mg Sitagliptin Phosphate (Januvia) 25 mg PO DAILY [facility] Last Admin: 10/22/18 09:50 Dose: 25 mg - Labs Labs: 10/22/18 11:18 10/22/18 11:18 PT 12.1 SECONDS (9.7-12.2) 10/16/18 13:18 INR 1.1 10/16/18 13:18 APTT 34 SECONDS (21-34) 10/16/18 13:18 - Constitutional Appears: Non-toxic, Chronically Ill - Head Exam Head Exam: NORMOCEPHALIC - Eye Exam Eye Exam: absent: Scleral icterus - ENT Exam ENT Exam: Mucous Membranes Dry - Neck Exam Neck Exam: absent: Lymphadenopathy - Respiratory Exam Respiratory Exam: Decreased Breath Sounds - Cardiovascular Exam Cardiovascular Exam: REGULAR RHYTHM - GI/Abdominal Exam GI & Abdominal Exam: Distended, Soft - Rectal Exam Rectal Exam: Deferred - Exam Exam: NORMAL INSPECTION - Extremities Exam Extremities Exam: Pedal Edema - Back Exam Back Exam: absent: CVA tenderness (L), CVA tenderness (R) - Neurological Exam Neurological Exam: Alert Neuro motor strength exam: Left Upper Extremity: 3, Right Upper Extremity: 4, Left Lower Extremity: 2/1, Right Lower Extremity: 4 - Psychiatric Exam Psychiatric exam: Depressed Assessment and Plan (1) Near syncope Status: Acute (2) Abnormal physical evaluation Status: Acute (3) Chest pain Status: Acute (4) Dehydration Status: Acute (5) Diabetes Status: Chronic (6) Elevated lipase Status: Acute (7) DVT of leg (deep venous thrombosis) Status: Acute (8) Syncope Status: Acute (9) Elevated CPK Status: Acute (10) Renal insufficiency Status: Acute (11) Weakness Status: Acute (12) Hypercholesteremia Status: Chronic - Assessment and Plan (Free Text) Assessment: renew IV rx
[2018-10-23] MEDS: ceFAZolin 1 GM in Sodium Chloride 0.9% 100 ML IVPB SCH ×3 (03:14→20:29)
[2018-10-23] MEDS: Enoxaparin 60 mg Syringe SC SCH (06:28)
[2018-10-23] MEDS: (Novolog) Insulin Aspart, Recombinant 100 u/ml 10 ml vial SC SCH ×3 (08:12→21:59)
[2018-10-23 08:36] VITALS: RESP 20
--- NOTE | 2018-10-23 08:51 | CP.PCM.PN ---
Subjective - Date & Time of Evaluation Date of Evaluation: 10/23/18 Time of Evaluation: 08:25 - Subjective Subjective: Pt w/ leg pain; Dec trend of hgb/ Hct & low na pesristent No CP, no SOB, (+) decrease edema on left leg, no cough, no n/v Objective - Vital Signs/Intake and Output Vital Signs (last 24 hours): Temp Pulse Resp BP Pulse Ox 98.6 F 70 20 151/76 H 96 10/23/18 08:34 10/23/18 08:34 10/23/18 08:34 10/23/18 08:34 10/23/18 08:34 Intake and Output: 10/23/18 10/23/18 06:59 18:59 Output Total 1000 Balance -1000 - Medications Medications: Current Medications Acetaminophen (Tylenol 325mg Tab) 650 mg PO ONCE PRN PRN Reason: give before first unit of PRBC Last Admin: 10/19/18 05:34 Dose: 650 mg Acetaminophen (Tylenol 325mg Tab) 650 mg PO ONCE PRN PRN Reason: give before 2nd unit of PRBC Amlodipine Besylate (Norvasc) 10 mg PO DAILY [facility] Last Admin: 10/22/18 09:50 Dose: 10 mg Carvedilol (Coreg) 12.5 mg PO BID [facility] Last Admin: 10/22/18 18:55 Dose: 12.5 mg Enoxaparin Sodium (Lovenox) 60 mg SC Q24H [facility] Last Admin: 10/23/18 06:28 Dose: 60 mg Famotidine (Pepcid) 20 mg PO DAILY [facility] Last Admin: 10/22/18 09:51 Dose: 20 mg Gabapentin (Neurontin) 300 mg PO BID [facility] Hydralazine HCl (Apresoline) 25 mg PO BID [facility] Last Admin: 10/22/18 18:55 Dose: 25 mg Hydrochlorothiazide (Microzide) 12.5 mg PO DAILY [facility] Cefazolin Sodium 1 gm/ Sodium (Chloride) 100 mls @ 100 mls/hr IVPB Q8H [facility]; Protocol Last Admin: 10/23/18 03:14 Dose: 100 mls/hr Insulin Aspart (Novolog) 0 unit SC ACHS [facility]; Protocol Last Admin: 10/23/18 08:12 Dose: 3 units Insulin Detemir (Levemir) 14 unit SC DAILY [facility] Oxycodone/Acetaminophen (Percocet 5/325 Mg Tab) 1 tab PO Q6H PRN PRN Reason: pain Stop: 10/23/18 20:38 Last Admin: 10/22/18 04:15 Dose: 1 tab Polyethylene Glycol (Miralax) 17 gm PO DAILY [facility] Last Admin: 10/22/18 09:51 Dose: 17 gm Rosuvastatin Calcium (Crestor) 20 mg PO HS [facility] Last Admin: 10/22/18 22:37 Dose: 20 mg Sitagliptin Phosphate (Januvia) 25 mg PO DAILY [facility] Last Admin: 10/22/18 09:50 Dose: 25 mg - Labs Labs: 10/22/18 11:18 10/22/18 11:18 PT 12.1 SECONDS (9.7-12.2) 10/16/18 13:18 INR 1.1 10/16/18 13:18 APTT 34 SECONDS (21-34) 10/16/18 13:18 - Constitutional Appears: No Acute Distress - Eye Exam Eye Exam: Normal appearance - ENT Exam ENT Exam: Mucous Membranes Moist - Neck Exam Neck Exam: Full ROM. absent: Lymphadenopathy - Respiratory Exam Respiratory Exam: Rales. absent: Decreased Breath Sounds, Rhonchi, Wheezes - Cardiovascular Exam Cardiovascular Exam: REGULAR RHYTHM, +S1, +S2. absent: Gallop, JVD - GI/Abdominal Exam GI & Abdominal Exam: Soft. absent: Tenderness - Extremities Exam Extremities Exam: Calf Tenderness, Full ROM, Normal Capillary Refill, Pedal Edema Assessment and Plan - Assessment and Plan (Free Text) Assessment: L leg cellulitis; DVT - omprove Anemia; hyponatremia; HTN, NIDDM, CKD For GI eval/ Renal consult meds adjusted to better control BP Gabapentin w/ percocet for pain
--- NOTE | 2018-10-23 09:41 | RAD ---
Date of service: 10/22/2018 PROCEDURE: Left Ankle Radiographs. HISTORY: fall fracture COMPARISON: None available. FINDINGS: BONES: No fracture appreciated. Foot: Generalized osteopenia is suspect JOINTS: First metatarsal-phalangeal joint arthrosis and 1st tarsal metatarsal joint arthrosis.. Ankle mortise maintained. Talar dome intact SOFT TISSUES: Abnormally diffusely swollen and abnormally increased in soft tissue density. Overlying bandaging suspect. Some talc present about the foot also suggested with or within a overlying gauze bandage possibly. OTHER FINDINGS: The soft tissue swelling is especially profound at the metatarsal levels dorsal and plantar levels. If there is any specific current concerns of any fractures more at the foot level proper, consider left foot x-ray exam. Multiple accessory ossifications centers are noted os trigonum-and probable os tibial externum. Trace inferior calcaneal spurring. Trace Deejay's tendon insetional enesthesophyte. IMPRESSION: Intact ankle mortise. No ankle fractures appreciated. Profound soft tissue swelling at the foot level as above. If further evaluation here is needed consider left foot x-ray exam. Other findings as above.
[2018-10-23] MEDS: POLYETHYLENE GLYCOL 3350 17 GM/Dose PACKET PO SCH (09:57)
[2018-10-23] MEDS: Insulin Detemir 100 units/ml Vial (Levemir) SC SCH (09:58)
[2018-10-23] MEDS ORDERED: (Novolog) Insulin Aspart, Recombinant 100 u/ml 10 ml vial SC ONE (12:00)
--- NOTE | 2018-10-23 12:35 | CP.PCM.CON ---
History of Present Illness - History of Present Illness History of Present Illness: 68 yo male admitted with syncope. We are asked to evaluate for anemia. Pt is confused. No report of RB, melena,. ? Wt loss? Colonsocopy 1.5 yrs ago showed a benign small polyp Review of Systems - Constitutional Constitutional: Fatigue, Weight Loss, Weakness. absent: Fever - EENT Eyes: absent: Photophobia Nose/Mouth/Throat: absent: Tongue Swelling - Cardiovascular Cardiovascular: Chest Pain, Syncope. absent: Dyspnea - Respiratory Respiratory: absent: Cough, Hemoptysis, Wheezing - Gastrointestinal Gastrointestinal: absent: Abdominal Pain, Constipation, Diarrhea, Dysphagia, Hem atemesis, Hematochezia, Loose Stools, Melena, Nausea, Vomiting - Genitourinary Genitourinary: absent: Dysuria, Hematuria - Musculoskeletal Musculoskeletal: absent: Muscle Cramps - Integumentary Integumentary: absent: Jaundice - Neurological Neurological: Confusion, Syncope. absent: Convulsions, Headaches - Psychiatric Psychiatric: absent: Hallucinations Past Patient History - Infectious Disease Hx of Infectious Diseases: None - Past Medical History & Family History Past Medical History?: Yes - Past Social History Smoking Status: Former Smoker - CARDIAC Hx Cardiac Disorders: Yes Hx Hypercholesterolemia: Yes Hx Hypertension: Yes - PULMONARY Hx Respiratory Disorders: No - NEUROLOGICAL HX Cerebrovascular Accident: Yes (x4) - HEENT Hx HEENT Problems: Yes Hx Cataracts: Yes (LEFT EYE) Other/Comment: Hard of Hearing - RENAL Hx Chronic Kidney Disease: No - ENDOCRINE/METABOLIC Hx Diabetes Mellitus Type 2: Yes - HEMATOLOGICAL/ONCOLOGICAL Hx Blood Disorders: Yes Hx Anemia: Yes (IRON DEFICIENCY) Hx Blood Transfusions: No - INTEGUMENTARY Hx Dermatological Problems: No - MUSCULOSKELETAL/RHEUMATOLOGICAL Hx Arthritis: Yes - GASTROINTESTINAL Hx Gastrointestinal Disorders: No - GENITOURINARY/GYNECOLOGICAL Hx Genitourinary Disorders: Yes - PSYCHIATRIC Hx Psychophysiologic Disorder: No Hx Substance Use: No - SURGICAL HISTORY Hx Surgeries: Yes Hx Carotid Endarterectomy: Yes (Rt side) Hx Cholecystectomy: Yes Hx Coronary Stent: Yes Hx Herniorrhaphy: Yes - ANESTHESIA Hx Anesthesia: Yes Hx Anesthesia Reactions: No Hx Malignant Hyperthermia: No Has any member of the family had a problem w/ anesthesia?: No Meds Allergies/Adverse Reactions: Allergies Allergy/AdvReac Type Severity Reaction Status Date / Time No Known Allergies Allergy Verified 10/16/18 12:08 - Medications Medications: Current Medications Acetaminophen (Tylenol 325mg Tab) 650 mg PO ONCE PRN PRN Reason: give before first unit of PRBC Last Admin: 10/19/18 05:34 Dose: 650 mg Acetaminophen (Tylenol 325mg Tab) 650 mg PO ONCE PRN PRN Reason: give before 2nd unit of PRBC Carvedilol (Coreg) 12.5 mg PO BID [facility] Last Admin: 10/23/18 09:57 Dose: 12.5 mg Enoxaparin Sodium (Lovenox) 60 mg SC Q24H [facility] Last Admin: 10/23/18 06:28 Dose: 60 mg Famotidine (Pepcid) 20 mg PO DAILY [facility] Last Admin: 10/23/18 09:57 Dose: 20 mg Gabapentin (Neurontin) 300 mg PO BID [facility] Last Admin: 10/23/18 09:57 Dose: 300 mg Hydralazine HCl (Apresoline) 50 mg PO Q8H [facility] Last Admin: 10/23/18 09:57 Dose: 50 mg Hydrochlorothiazide (Microzide) 12.5 mg PO DAILY [facility] Last Admin: 10/23/18 09:57 Dose: 12.5 mg Cefazolin Sodium 1 gm/ Sodium (Chloride) 100 mls @ 100 mls/hr IVPB Q8H [facility]; Protocol Last Admin: 10/23/18 12:30 Dose: 100 mls/hr Insulin Aspart (Novolog) 0 unit SC ACHS [facility]; Protocol Insulin Detemir (Levemir) 14 unit SC DAILY [facility] Last Admin: 10/23/18 09:58 Dose: 14 units Oxycodone/Acetaminophen (Percocet 5/325 Mg Tab) 1 tab PO Q6H PRN PRN Reason: pain Stop: 10/23/18 20:38 Last Admin: 10/22/18 04:15 Dose: 1 tab Polyethylene Glycol (Miralax) 17 gm PO DAILY [facility] Last Admin: 10/23/18 09:57 Dose: 17 gm Rosuvastatin Calcium (Crestor) 20 mg PO HS [facility] Last Admin: 10/22/18 22:37 Dose: 20 mg Sitagliptin Phosphate (Januvia) 25 mg PO DAILY [facility] Last Admin: 10/23/18 09:57 Dose: 25 mg Physical Exam - Constitutional Appears: Non-toxic, Confused - Respiratory Exam Respiratory Exam: Clear to Auscultation Bilateral - Cardiovascular Exam Cardiovascular Exam: RRR - GI/Abdominal Exam GI & Abdominal Exam: Normal Bowel Sounds, Soft. absent: Distended, Guarding, Mass, Rebound, Tenderness - Rectal Exam Additional comments: uncooperative - Neurological Exam Neurological exam: Alert Additional comments: confused. Poor hearing Results - Vital Signs Recent Vital Signs: Last Vital Signs Temp 98.6 F 10/23/18 08:34 Pulse 78 10/23/18 09:56 Resp 20 10/23/18 08:34 BP 132/60 10/23/18 09:57 Pulse Ox 96 10/23/18 08:34 - Labs Result Diagrams: 10/22/18 11:18 10/22/18 11:18 Labs: Laboratory Results - last 24 hr 10/22/18 10/22/18 10/23/18 17:05 21:12 06:42 POC Glucose (mg/dL) 299 H 388 H 283 H 10/23/18 11:33 POC Glucose (mg/dL) 430 H* Assessment & Plan (1) DVT of leg (deep venous thrombosis) Assessment and Plan: On LOVENOX Status: Acute (2) Near syncope Status: Acute (3) Severe anemia Assessment and Plan: No report of GI bleeding. Colonosocpy was done 1.5 yrs ago. I would consider EGD when stable. Check stool OB. PPI. Status: Acute (4) Chest pain Status: Acute (5) Dehydration Status: Acute (6) Elevated lipase Assessment and Plan: No pancreatitis. Status: Acute (7) GERD (gastroesophageal reflux disease) Status: Acute (8) Hyponatremia Status: Acute (9) Diabetes Status: Chronic (10) Hypertension Status: Chronic
--- NOTE | 2018-10-23 16:23 | CP.PCM.CON ---
History of Present Illness - History of Present Illness History of Present Illness: consult for hyponatremia and patrick 68 y/o male with a PMHx of HTN, DM, and CVA with residual left-sided weakness, brought in by for evaluation of left knee pain s/p fall on 10/12/18. Patient reports he suddenly felt dizzy while attempting to stand, and fell striking the left leg. was assisting him at that time, and slowly lowered to the ground. There was no head trauma or LOC. Patient had also reported some rib pain. He is now complaining of left leg pain, worse at the left knee. reports patient has been unable to straighten the leg knee. also notes prior to the incident, patient developed diarrhea, which he has had for 5 days. Additionally patient is complaining of abdominal pain and nausea, no vomiting. Denies recent antibiotic use. Patient ambulates with wheelchair at baseline since CVA years ago. Admitted last week. Found to have Lt leg DVT as well as infected knee. Pt currently c/o severe left leg pain otherwise denies any n/v/d/f/c/headache. no labs today, elevated blood sugars 300 range, na 124. prior hx of ckd, creatinine at baseline around 2.5 mg/dl Review of Systems - Review of Systems All systems: reviewed and no additional remarkable complaints except (as per HPI) Past Patient History - Infectious Disease Hx of Infectious Diseases: None - Past Medical History & Family History Past Medical History?: Yes - Past Social History Smoking Status: Former Smoker - CARDIAC Hx Cardiac Disorders: Yes Hx Hypercholesterolemia: Yes Hx Hypertension: Yes - PULMONARY Hx Respiratory Disorders: No - NEUROLOGICAL HX Cerebrovascular Accident: Yes (x4) - HEENT Hx HEENT Problems: Yes Hx Cataracts: Yes (LEFT EYE) Other/Comment: Hard of Hearing - RENAL Hx Chronic Kidney Disease: No - ENDOCRINE/METABOLIC Hx Diabetes Mellitus Type 2: Yes - HEMATOLOGICAL/ONCOLOGICAL Hx Blood Disorders: Yes Hx Anemia: Yes (IRON DEFICIENCY) Hx Blood Transfusions: No - INTEGUMENTARY Hx Dermatological Problems: No - MUSCULOSKELETAL/RHEUMATOLOGICAL Hx Arthritis: Yes - GASTROINTESTINAL Hx Gastrointestinal Disorders: No - GENITOURINARY/GYNECOLOGICAL Hx Genitourinary Disorders: Yes - PSYCHIATRIC Hx Psychophysiologic Disorder: No Hx Substance Use: No - SURGICAL HISTORY Hx Surgeries: Yes Hx Carotid Endarterectomy: Yes (Rt side) Hx Cholecystectomy: Yes Hx Coronary Stent: Yes Hx Herniorrhaphy: Yes - ANESTHESIA Hx Anesthesia: Yes Hx Anesthesia Reactions: No Hx Malignant Hyperthermia: No Has any member of the family had a problem w/ anesthesia?: No Meds Allergies/Adverse Reactions: Allergies Allergy/AdvReac Type Severity Reaction Status Date / Time No Known Allergies Allergy Verified 10/16/18 12:08 - Medications Medications: Current Medications Acetaminophen (Tylenol 325mg Tab) 650 mg PO ONCE PRN PRN Reason: give before first unit of PRBC Last Admin: 10/19/18 05:34 Dose: 650 mg Acetaminophen (Tylenol 325mg Tab) 650 mg PO ONCE PRN PRN Reason: give before 2nd unit of PRBC Carvedilol (Coreg) 12.5 mg PO BID [facility] Last Admin: 10/23/18 09:57 Dose: 12.5 mg Enoxaparin Sodium (Lovenox) 60 mg SC Q24H [facility] Last Admin: 10/23/18 06:28 Dose: 60 mg Famotidine (Pepcid) 20 mg PO DAILY [facility] Last Admin: 10/23/18 09:57 Dose: 20 mg Gabapentin (Neurontin) 300 mg PO BID [facility] Last Admin: 10/23/18 09:57 Dose: 300 mg Hydralazine HCl (Apresoline) 50 mg PO Q8H [facility] Last Admin: 10/23/18 09:57 Dose: 50 mg Cefazolin Sodium 1 gm/ Sodium (Chloride) 100 mls @ 100 mls/hr IVPB Q8H [facility]; Protocol Last Admin: 10/23/18 12:30 Dose: 100 mls/hr Insulin Aspart (Novolog) 0 unit SC ACHS [facility]; Protocol Insulin Detemir (Levemir) 14 unit SC DAILY [facility] Last Admin: 10/23/18 09:58 Dose: 14 units Oxycodone/Acetaminophen (Percocet 5/325 Mg Tab) 1 tab PO Q6H PRN PRN Reason: pain Stop: 10/23/18 20:38 Last Admin: 10/22/18 04:15 Dose: 1 tab Polyethylene Glycol (Miralax) 17 gm PO DAILY [facility] Last Admin: 10/23/18 09:57 Dose: 17 gm Rosuvastatin Calcium (Crestor) 20 mg PO HS [facility] Last Admin: 10/22/18 22:37 Dose: 20 mg Sitagliptin Phosphate (Januvia) 25 mg PO DAILY [facility] Last Admin: 10/23/18 09:57 Dose: 25 mg Physical Exam - Constitutional Appears: No Acute Distress, Unkempt, Chronically Ill - Head Exam Head Exam: NORMAL INSPECTION, NORMOCEPHALIC - Eye Exam Eye Exam: Normal appearance Pupil Exam: PERRL - ENT Exam ENT Exam: Mucous Membranes Moist, Normal Exam - Neck Exam Neck exam: Positive for: Normal Inspection - Respiratory Exam Respiratory Exam: Clear to Auscultation Bilateral, NORMAL BREATHING PATTERN - Cardiovascular Exam Cardiovascular Exam: RRR - GI/Abdominal Exam GI & Abdominal Exam: Distended, Soft - Extremities Exam Extremities exam: Positive for: pedal edema (LLE) - Neurological Exam Neurological exam: Alert - Skin Skin Exam: Dry, Intact Results - Vital Signs Recent Vital Signs: Last Vital Signs Temp 97.8 F 10/23/18 15:00 Pulse 73 10/23/18 15:00 Resp 20 10/23/18 15:00 BP 114/59 L 10/23/18 15:00 Pulse Ox 98 10/23/18 15:00 - Labs Result Diagrams: 10/22/18 11:18 10/22/18 11:18 Labs: Laboratory Results - last 24 hr 10/22/18 10/22/18 10/23/18 17:05 21:12 06:42 POC Glucose (mg/dL) 299 H 388 H 283 H 10/23/18 11:33 POC Glucose (mg/dL) 430 H* Assessment & Plan (1) DVT of leg (deep venous thrombosis) Status: Acute (2) Renal insufficiency Status: Acute (3) Hypertension Status: Chronic (4) Uncontrolled diabetes mellitus Status: Chronic - Assessment and Plan (Free Text) Assessment: patrick ckd 4 hyponatremia dvt htn plan: repeat chem today. corrected na for glucose 128. check urine osm, na. dc hctz check renal US check proteinuria, ua avoid nephrotoxic meds
[2018-10-24 01:40] LABS: CREATININE, RANDOM URINE 39.5 mg/dL
[2018-10-24] MEDS: ceFAZolin 1 GM in Sodium Chloride 0.9% 100 ML IVPB SCH (04:09)
[2018-10-24] MEDS: Enoxaparin 60 mg Syringe SC SCH (06:55)
--- NOTE | 2018-10-24 07:50 | CP.PCM.PN ---
Subjective - Date & Time of Evaluation Date of Evaluation: 10/24/18 Time of Evaluation: 07:47 - Subjective Subjective: f/u anemia history unobtainable, pt lethargic, wants to sleep Anemia, nausea, hyponatremia, elevated Alk phos & AST- ?bone source Objective - Vital Signs/Intake and Output Vital Signs (last 24 hours): Temp Pulse Resp BP Pulse Ox 98.7 F 74 20 147/75 98 10/24/18 00:00 10/24/18 00:00 10/24/18 00:00 10/24/18 00:00 10/24/18 00:00 - Medications Medications: Current Medications Acetaminophen (Tylenol 325mg Tab) 650 mg PO ONCE PRN PRN Reason: give before first unit of PRBC Last Admin: 10/19/18 05:34 Dose: 650 mg Acetaminophen (Tylenol 325mg Tab) 650 mg PO ONCE PRN PRN Reason: give before 2nd unit of PRBC Carvedilol (Coreg) 12.5 mg PO BID [facility] Last Admin: 10/23/18 17:40 Dose: 12.5 mg Enoxaparin Sodium (Lovenox) 60 mg SC Q24H [facility] Last Admin: 10/24/18 06:55 Dose: 60 mg Famotidine (Pepcid) 20 mg PO DAILY [facility] Last Admin: 10/23/18 09:57 Dose: 20 mg Gabapentin (Neurontin) 300 mg PO BID [facility] Last Admin: 10/23/18 17:39 Dose: 300 mg Hydralazine HCl (Apresoline) 50 mg PO Q8H [facility] Last Admin: 10/24/18 01:21 Dose: 50 mg Cefazolin Sodium 1 gm/ Sodium (Chloride) 100 mls @ 100 mls/hr IVPB Q8H [facility]; Protocol Last Admin: 10/24/18 04:09 Dose: 100 mls/hr Insulin Aspart (Novolog) 0 unit SC ACHS [facility]; Protocol Last Admin: 10/23/18 21:59 Dose: Not Given Insulin Detemir (Levemir) 14 unit SC DAILY [facility] Last Admin: 10/23/18 09:58 Dose: 14 units Polyethylene Glycol (Miralax) 17 gm PO DAILY [facility] Last Admin: 10/23/18 09:57 Dose: 17 gm Rosuvastatin Calcium (Crestor) 20 mg PO HS [facility] Last Admin: 10/23/18 22:28 Dose: 20 mg Sitagliptin Phosphate (Januvia) 25 mg PO DAILY [facility] Last Admin: 10/23/18 09:57 Dose: 25 mg - Labs Labs: 10/22/18 11:18 10/22/18 11:18 PT 12.1 SECONDS (9.7-12.2) 10/16/18 13:18 INR 1.1 10/16/18 13:18 APTT 34 SECONDS (21-34) 10/16/18 13:18 - Constitutional Appears: Chronically Ill - Respiratory Exam Respiratory Exam: NORMAL BREATHING PATTERN - GI/Abdominal Exam GI & Abdominal Exam: Soft Assessment and Plan (1) Elevated alkaline phosphatase level Assessment & Plan: Possibly from bone source S/P fall Rec: check GGTP Status: Acute (2) Severe anemia Assessment & Plan: Change to PPI Not a candidate for EGD- needs hyponatremoia corrected Check stool OB Colonoscopy done past year Status: Acute (3) Hyponatremia Assessment & Plan: management per renal Status: Acute
--- NOTE | 2018-10-24 08:17 | CP.PCM.PN ---
Subjective - Date & Time of Evaluation Date of Evaluation: 10/24/18 Time of Evaluation: 08:30 - Subjective Subjective: Pt asleep; Does want to get disturb States he is okay Objective - Vital Signs/Intake and Output Vital Signs (last 24 hours): Temp Pulse Resp BP Pulse Ox 98.7 F 74 20 147/75 98 10/24/18 00:00 10/24/18 00:00 10/24/18 00:00 10/24/18 00:00 10/24/18 00:00 - Medications Medications: Current Medications Acetaminophen (Tylenol 325mg Tab) 650 mg PO ONCE PRN PRN Reason: give before first unit of PRBC Last Admin: 10/19/18 05:34 Dose: 650 mg Acetaminophen (Tylenol 325mg Tab) 650 mg PO ONCE PRN PRN Reason: give before 2nd unit of PRBC Carvedilol (Coreg) 12.5 mg PO BID [facility] Last Admin: 10/23/18 17:40 Dose: 12.5 mg Enoxaparin Sodium (Lovenox) 60 mg SC Q24H [facility] Last Admin: 10/24/18 06:55 Dose: 60 mg Gabapentin (Neurontin) 300 mg PO BID [facility] Last Admin: 10/23/18 17:39 Dose: 300 mg Hydralazine HCl (Apresoline) 50 mg PO Q8H [facility] Last Admin: 10/24/18 01:21 Dose: 50 mg Cefazolin Sodium 1 gm/ Sodium (Chloride) 100 mls @ 100 mls/hr IVPB Q8H [facility]; Protocol Last Admin: 10/24/18 04:09 Dose: 100 mls/hr Insulin Aspart (Novolog) 0 unit SC ACHS [facility]; Protocol Last Admin: 10/23/18 21:59 Dose: Not Given Insulin Detemir (Levemir) 14 unit SC DAILY [facility] Last Admin: 10/23/18 09:58 Dose: 14 units Pantoprazole Sodium (Protonix Susp) 40 mg PO 0600 [facility] Polyethylene Glycol (Miralax) 17 gm PO DAILY [facility] Last Admin: 10/23/18 09:57 Dose: 17 gm Rosuvastatin Calcium (Crestor) 20 mg PO HS [facility] Last Admin: 10/23/18 22:28 Dose: 20 mg Sitagliptin Phosphate (Januvia) 25 mg PO DAILY [facility] Last Admin: 01/29/19 09:57 Dose: 25 mg - Labs Labs: 10/22/18 11:18 10/22/18 11:18 PT 12.1 SECONDS (9.7-12.2) 10/16/18 13:18 INR 1.1 10/16/18 13:18 APTT 34 SECONDS (21-34) 10/16/18 13:18 - Constitutional Appears: No Acute Distress - Head Exam Head Exam: NORMOCEPHALIC - Eye Exam Eye Exam: Normal appearance - ENT Exam ENT Exam: Mucous Membranes Moist - Neck Exam Neck Exam: Full ROM. absent: Lymphadenopathy - Respiratory Exam Respiratory Exam: Decreased Breath Sounds. absent: Rales, Rhonchi, Wheezes - Cardiovascular Exam Cardiovascular Exam: REGULAR RHYTHM, +S1, +S2. absent: Gallop, JVD - GI/Abdominal Exam GI & Abdominal Exam: Soft. absent: Guarding, Tenderness - Extremities Exam Extremities Exam: Calf Tenderness, Normal Capillary Refill, Pedal Edema. absent: Full ROM, Joint Swelling Assessment and Plan - Assessment and Plan (Free Text) Assessment: Anemia; L eg DVT; ROSINA w/ CKD NIDDM, HTN; L hemiplegia Event noted/ ? EGD Xarelto if neg GI work up Cont meds/ supportive care
[2018-10-24] MEDS: (Novolog) Insulin Aspart, Recombinant 100 u/ml 10 ml vial SC SCH ×4 (08:18→18:00)
[2018-10-24 08:52] LABS: HEMOGLOBIN 10.6 g/dL (12.0-18.0); MEAN CORPUSCULAR HEMOGLOBIN 26.5 pg (27.0-31.0); MEAN CORPUSCULAR HGB CONC 33.1 g/dL (33.0-37.0); MEAN PLATELET VOLUME 8.5 fL (7.2-11.7); RBC 4.02 Mil/uL (4.40-5.90); RED CELL DISTRIBUTION WIDTH 17.7 % (11.5-14.5); WHITE BLOOD COUNT 9.5 K/uL (4.8-10.8)
[2018-10-24 09:08] LABS: ALB/GLOB RATIO 0.9 (1.0-2.1); ALBUMIN 2.8 g/dL (3.5-5.0); CALCIUM 8.1 mg/dl (8.6-10.4)
[2018-10-24] MEDS: Insulin Detemir 100 units/ml Vial (Levemir) SC SCH (10:23)
[2018-10-24] MEDS: POLYETHYLENE GLYCOL 3350 17 GM/Dose PACKET PO SCH (10:23)
--- NOTE | 2018-10-24 10:29 | CP.PCM.PN ---
Subjective - Date & Time of Evaluation Date of Evaluation: 10/24/18 Time of Evaluation: 10:27 - Subjective Subjective: no acute complaints appears comfortable labs noted no chest pain no sob appetite fair no fever no urinary complaints Objective - Vital Signs/Intake and Output Vital Signs (last 24 hours): Temp Pulse Resp BP Pulse Ox 98.0 F 78 20 135/57 L 95 10/24/18 08:00 10/24/18 10:23 10/24/18 08:00 10/24/18 10:23 10/24/18 08:00 Intake and Output: 10/24/18 10/24/18 06:59 18:59 Intake Total 220 Output Total 500 Balance -280 - Medications Medications: Current Medications Acetaminophen (Tylenol 325mg Tab) 650 mg PO ONCE PRN PRN Reason: give before first unit of PRBC Last Admin: 10/19/18 05:34 Dose: 650 mg Acetaminophen (Tylenol 325mg Tab) 650 mg PO ONCE PRN PRN Reason: give before 2nd unit of PRBC Carvedilol (Coreg) 12.5 mg PO BID [facility] Last Admin: 10/24/18 10:23 Dose: 12.5 mg Enoxaparin Sodium (Lovenox) 60 mg SC Q24H [facility] Last Admin: 10/24/18 06:55 Dose: 60 mg Gabapentin (Neurontin) 300 mg PO BID [facility] Last Admin: 10/24/18 10:23 Dose: 300 mg Hydralazine HCl (Apresoline) 50 mg PO Q8H [facility] Last Admin: 10/24/18 08:18 Dose: 50 mg Cefazolin Sodium 1 gm/ Sodium (Chloride) 100 mls @ 100 mls/hr IVPB Q12H [facility]; Protocol Insulin Aspart (Novolog) 0 unit SC [facility]; Protocol Last Admin: 10/24/18 08:18 Dose: 4 units Insulin Detemir (Levemir) 14 unit SC DAILY [facility] Last Admin: 10/24/18 10:23 Dose: 14 units Pantoprazole Sodium (Protonix Susp) 40 mg PO 0600 [facility] Polyethylene Glycol (Miralax) 17 gm PO DAILY [facility] Last Admin: 10/24/18 10:23 Dose: 17 gm Rosuvastatin Calcium (Crestor) 10 mg PO HS [facility] Sitagliptin Phosphate (Januvia) 25 mg PO DAILY [facility] Last Admin: 10/24/18 10:23 Dose: 25 mg - Labs Labs: 10/24/18 08:49 10/24/18 08:49 PT 12.1 SECONDS (9.7-12.2) 10/16/18 13:18 INR 1.1 10/16/18 13:18 APTT 34 SECONDS (21-34) 10/16/18 13:18 - Constitutional Appears: Non-toxic, Chronically Ill - Head Exam Head Exam: ATRAUMATIC, NORMAL INSPECTION - Eye Exam Eye Exam: EOMI - ENT Exam ENT Exam: Mucous Membranes Moist - Neck Exam Neck Exam: Full ROM. absent: Lymphadenopathy - Respiratory Exam Respiratory Exam: Clear to Ausculation Bilateral. absent: Decreased Breath So unds - GI/Abdominal Exam GI & Abdominal Exam: Soft. absent: Tenderness - Extremities Exam Extremities Exam: Joint Swelling. absent: Pedal Edema - Neurological Exam Neurological Exam: Alert, Awake Assessment and Plan - Assessment and Plan (Free Text) Assessment: stable ckd improved hyponatremia, may be triggered by pain continue follow up of knee, clinically better check serum osm
--- NOTE | 2018-10-24 14:04 | US ---
Date of service: 10/23/2018 PROCEDURE: Ultrasound of the Kidneys HISTORY: patrick COMPARISON: CT abdomen and pelvis without contrast performed 11/07/17 TECHNIQUE: Sonogram of the kidneys. FINDINGS: RIGHT KIDNEY: Measures: 10.1 x 4.7 x 4.8 cm. Echogenic renal parenchyma. No hydronephrosis or obstructing calculus identified. LEFT KIDNEY: Measures: 9.3 x 4.6 x 4.7 cm. Echogenic renal parenchyma. No hydronephrosis or obstructing calculus identified. OTHER FINDINGS: Prevoid urinary bladder measures 9.8 x 6.9 x 6.5 cm, calculated volume 230.5 mL. Postvoid residual could not be obtained as patient unable to void. Urinary bladder wall appears thickened measuring approximately 7 mm, possibly exaggerated by under distension. Bilateral ureteral jets are identified. Prostate gland measures 3.1 x 3.1 x 3.2 cm, prostate volume 16.1 mL. Incidental note is made of atherosclerotic calcifications of the aorta. IMPRESSION: Echogenic renal parenchyma may be seen in the setting of medical renal disease. No hydronephrosis or obstructing calculi bilaterally. Prevoid urinary bladder volume 230.5 mL. Postvoid residual could not be obtained as patient unable to void. Urinary bladder wall thickening possibly exaggerated by under distension. Recommend correlation with urinalysis. Prostate gland volume 16.1 mL. Incidental note is made of atherosclerotic calcifications of the aorta. Preliminary impression was provided by [facility].
[2018-10-24] MEDS ORDERED: ceFAZolin 1 GM in Sodium Chloride 0.9% 100 ML IVPB SCH (16:00)
[2018-10-24 16:39] VITALS: PULSE 65; TEMP 98.7; O2SAT 96
[2018-10-24 18:06] VITALS: BP 140/72
[2018-10-25] MEDS ORDERED: Pantoprazole 40 mg Susp UD PO SCH (06:00)
--- NOTE | 2018-11-07 16:02 | CP.PCM.DIS ---
Provider - Provider Date of Admission: 10/18/18 18:51 CC: Almost pass out 68 y/o with s/p CVA w/ hemiplegia & CKD; HTN, NIDDM. Pt shelia to ER c/o L knee pain after fall and becoming weak. J He had knee X-ray and also (+) L DVT. Pt was admitted Attending physician: Herbert Lawrence MD Consults: 10/16/18 19:09 Cardiology Consult Routine Comment: Consulting Provider: Estrellita Powers Consulting Physician: Estrellita Powers Reason for Consult: Syncope 10/16/18 19:15 Physician Consult Routine Comment: abnormal CBC; Platelet 594 Consulting Provider: Yevgeniy Sosa Consulting Physician: Yevgeniy Sosa Reason for Consult: inc platelet 10/17/18 08:23 Physician Consult Routine Comment: wound infection Consulting Provider: Nasim Schroeder Consulting Physician: Nasim Schroeder Reason for Consult: woun infection 10/17/18 19:14 Wound Care [Nursing Referral for Wound Care] Routine Comment: Physician Instructions: Reason For Exam: left leg wound 10/18/18 19:58 Social Work Referral Routine Comment: misael score 8 Physician Instructions: Reason For Exam: misael score 8 10/21/18 11:21 Discharge Planning [Case Management Referral] Routine Comment: Physician Instructions: Reason For Exam: 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 10/23/18 08:40 Physician Consult Routine Comment: Consulting Provider: Devan Quesada Consulting Physician: Devan Quesada Reason for Consult: inc Crea; persistent low sodium 10/23/18 08:41 Physician Consult Routine Comment: Consulting Provider: Jaun Taylor Consulting Physician: Jaun Taylor Reason for Consult: Dec hct; on Anticoagulation Time Spent in preparation of Discharge (in minutes): 15 Hospital Course - Lab Results Lab Results: Micro Results 10/17/18 22:06 Blood-Venous Blood Culture - Final NO GROWTH AFTER 5 DAYS 10/17/18 22:06 Blood-Venous Blood Culture - Final NO GROWTH AFTER 5 DAYS 10/17/18 22:06 Blood-Venous Gram Stain - Final TEST NOT PERFORMED 10/17/18 22:06 Leg - Left Gram Stain - Final 10/17/18 22:06 Leg - Left Wound Culture - Final Coagulase Neg Staphylococcus Most Recent Lab Values WBC 9.5 K/uL (4.8-10.8) 10/24/18 08:49 RBC 4.02 Mil/uL (4.40-5.90) L 10/24/18 08:49 Hgb 10.6 g/dL (12.0-18.0) L 10/24/18 08:49 Hct 32.2 % (35.0-51.0) L 10/24/18 08:49 MCV 80.0 fL (80.0-94.0) 10/24/18 08:49 MCH 26.5 pg (27.0-31.0) L 10/24/18 08:49 MCHC 33.1 g/dL (33.0-37.0) 10/24/18 08:49 RDW 17.7 % (11.5-14.5) H 10/24/18 08:49 Plt Count 444 K/uL (130-400) H 10/24/18 08:49 MPV 8.5 fL (7.2-11.7) 10/24/18 08:49 Neut % (Auto) 78.1 % (50.0-75.0) H 10/20/18 08:24 Lymph % (Auto) 10.9 % (20.0-40.0) L 10/20/18 08:24 Kinney % (Auto) 9.4 % (0.0-10.0) 10/20/18 08:24 Eos % (Auto) 1.1 % (0.0-4.0) 10/20/18 08:24 Baso % (Auto) 0.5 % (0.0-2.0) 10/20/18 08:24 Neut # (Auto) 9.6 K/uL (1.8-7.0) H 10/20/18 08:24 Lymph # (Auto) 1.3 K/uL (1.0-4.3) 10/20/18 08:24 Kinney # (Auto) 1.2 K/uL (0.0-0.8) H 10/20/18 08:24 Eos # (Auto) 0.1 K/uL (0.0-0.7) 10/20/18 08:24 Baso # (Auto) 0.1 K/uL (0.0-0.2) 10/20/18 08:24 ESR 104 mm/hr (0-15) H 10/18/18 07:00 Retic Count 1.5 % (0.5-1.5) 10/18/18 07:00 PT 12.1 SECONDS (9.7-12.2) 10/16/18 13:18 INR 1.1 10/16/18 13:18 APTT 34 SECONDS (21-34) 10/16/18 13:18 Sodium 130 mmol/L (132-148) L 10/24/18 08:49 Potassium 4.9 mmol/L (3.6-5.2) 10/24/18 08:49 Chloride 97 mmol/L (98-107) L 10/24/18 08:49 Carbon Dioxide 25 mmol/L (22-30) 10/24/18 08:49 Anion Gap 13 (10-20) 10/24/18 08:49 BUN 52 mg/dL (9-20) H 10/24/18 08:49 Creatinine 2.9 mg/dL (0.8-1.5) H 10/24/18 08:49 Est GFR ( Amer) 26 10/24/18 08:49 Est GFR (Non-Af Amer) 22 10/24/18 08:49 POC Glucose (mg/dL) 288 mg/dL (65-110) H 10/24/18 17:00 Random Glucose 210 mg/dL (75-110) H D 10/24/18 08:49 Serum Osmolality 299 mosm/kg (272-300) 10/24/18 13:50 Calcium 8.1 mg/dl (8.6-10.4) L 10/24/18 08:49 Magnesium 1.9 mg/dL (1.6-2.3) 10/22/18 11:18 Ferritin 101.0 ng/mL 10/18/18 07:00 Total Bilirubin 0.3 mg/dL (0.2-1.3) 10/24/18 08:49 GGT 184 U/L (8-78) H 10/24/18 08:49 AST 44 U/L (17-59) 10/24/18 08:49 ALT 19 U/L (21-72) L D 10/24/18 08:49 Alkaline Phosphatase 293 U/L (38-126) H 10/24/18 08:49 Total Creatine Kinase 471 U/L (55-170) H 10/16/18 13:18 CK-MB (Mass) 6.96 ng/mL (0.0-3.38) H 10/16/18 13:18 Troponin I 0.0140 ng/mL (0.00-0.120) 10/16/18 13:18 Total Protein 6.0 g/dL (6.3-8.3) L 10/24/18 08:49 Albumin 2.8 g/dL (3.5-5.0) L 10/24/18 08:49 Globulin 3.2 gm/dL (2.2-3.9) 10/24/18 08:49 Albumin/Globulin Ratio 0.9 (1.0-2.1) L 10/24/18 08:49 Lipase 391 U/L (23-300) H 10/16/18 13:18 Vitamin B12 638 pg/mL (239-931) 10/18/18 07:00 TSH 3rd Generation 3.06 mIU/L (0.46-4.68) 10/22/18 11:18 Urine Color Straw (YELLOW) 10/16/18 13:18 Urine Clarity Clear (Clear) 10/16/18 13:18 Urine pH 5.0 (5.0-8.0) 10/16/18 13:18 Ur Specific Kaiser 1.011 (1.003-1.030) 10/16/18 13:18 Urine Protein 3+ mg/dL (NEGATIVE) H 10/16/18 13:18 Urine Glucose (UA) 1+ mg/dL (Normal) H 10/16/18 13:18 Urine Ketones Negative mg/dL (NEGATIVE) 10/16/18 13:18 Urine Blood Negative (NEGATIVE) 10/16/18 13:18 Urine Nitrate Negative (NEGATIVE) 10/16/18 13:18 Urine Bilirubin Negative (NEGATIVE) 10/16/18 13:18 Urine Urobilinogen Normal mg/dL (0.2-1.0) 10/16/18 13:18 Ur Leukocyte Esterase Neg Andrey/uL (Negative) 10/16/18 13:18 Urine WBC (Auto) 1 /hpf (0-5) 10/16/18 13:18 Urine RBC (Auto) < 1 /hpf (0-3) 10/16/18 13:18 Ur Squamous Epith Cells < 1 /hpf (0-5) 10/16/18 13:18 Urine Osmolality 361 mosm/kg (300-1000) 10/24/18 00:53 Ur Random Creatinine 39.5 mg/dL 10/24/18 00:53 U Random Total Protein 359.0 mg/dL (0.0-12.0) H 10/24/18 00:53 Ur Random Sodium 58 mmol/L 10/24/18 00:53 Blood Type A POSITIVE 10/18/18 20:01 Blood Type Confirm A POSITIVE 10/18/18 20:01 Antibody Screen Negative 10/18/18 20:01 - Hospital Course Hospital Course: Pt started on Lovenox and f refer to Cardio, ID ad Renal service. Pt found has infected wound on L knee and leg. Pt was started an on antibiotic. Pt also has inc platelet > 500 and anemia. As such he was refer to hematology. Pt improve and pain is control but hgb showed dec trend. Pt refer to GI but family refuse EGD. Pt was discharge & advise Eliquis for > 6 mths. Discharge Exam - Head Exam Head Exam: ATRAUMATIC, NORMAL INSPECTION - Eye Exam Eye Exam: Normal appearance - ENT Exam ENT Exam: Mucous Membranes Moist - Neck Exam Neck exam: Full Rom - Respiratory Exam Respiratory Exam: Clear to PA & Lateral. absent: Rales, Rhonchi, Wheezes - Cardiovascular Exam Cardiovascular Exam: Gallop, REGULAR RHYTHM, +S1, +S2, Systolic Murmur. absent: JVD - GI/Abdominal Exam GI & Abdominal Exam: Soft. absent: Pulsatile Mass, Tenderness - Extremities Exam Extremities exam: calf tenderness, joint swelling, normal capillary refill, pedal pulses present Discharge Plan - Follow Up Plan Condition: FAIR Disposition: TRANSF TO SNF Instructions: Diabetes Exchange Diet, Deep Vein Thrombosis (Blood Clots in the Legs) (DC), Diabetes Diet , Normocytic Normochromic Anemia (DC), Near Fainting (DC), Pulmonary Embolism (DC), Pulmonary Embolism (GEN), Deep Venous Thrombosis (DC), Deep Venous Thrombosis (GEN) Referrals: Herbert Lawrence MD [Staff Provider] -
== END 2018-10-24 21:44 | DRG 300 ==
LOC: C.ER 11:24 → C.6T 15:54 → OBSVTOIN 10-18 18:51
PROVIDERS: ADMIT Internal Medicine; ATTEND Internal Medicine
PROC: 30233N1 Transfusion of Nonautologous Red Blood Cells into Peripheral Vein, Percutaneous Approach (ICD-10-PCS; principal; 2018-10-18)
DX: I82.492 Acute embolism and thrombosis of other specified deep vein of left lower extremity (principal); I69.354 Hemiplegia and hemiparesis following cerebral infarction affecting left non-dominant side; L03.116 Cellulitis of left lower limb; E87.1 Hypo-osmolality and hyponatremia; N17.9 Acute kidney failure, unspecified; N18.4 Chronic kidney disease, stage 4 (severe); R55 Syncope and collapse; I12.9 Hypertensive chronic kidney disease with stage 1 through stage 4 chronic kidney disease, or unspecified chronic kidney disease; I25.10 Atherosclerotic heart disease of native coronary artery without angina pectoris; N18.3 Chronic kidney disease, stage 3 (moderate); D50.9 Iron deficiency anemia, unspecified; E86.0 Dehydration; E11.22 Type 2 diabetes mellitus with diabetic chronic kidney disease; F03.90 Unspecified dementia, unspecified severity, without behavioral disturbance, psychotic disturbance, mood disturbance, and anxiety; M25.462 Effusion, left knee; I27.20 Pulmonary hypertension, unspecified; R70.0 Elevated erythrocyte sedimentation rate; R79.89 Other specified abnormal findings of blood chemistry; S80.212A Abrasion, left knee, initial encounter; W19.XXXA Unspecified fall, initial encounter; K21.9 Gastro-esophageal reflux disease without esophagitis; E78.00 Pure hypercholesterolemia, unspecified; M10.9 Gout, unspecified; H91.91 Unspecified hearing loss, right ear; Z95.5 Presence of coronary angioplasty implant and graft; Z87.891 Personal history of nicotine dependence; Z79.84 Long term (current) use of oral hypoglycemic drugs; Z86.010 Personal history of colon polyps; Z90.49 Acquired absence of other specified parts of digestive tract